=== PATIENT | male | born 1935 | race African-American/Black ===

== ENCOUNTER 2016-12-23 12:39 | Inpatient (IN) | payer OTHER, MEDICAID ==
[~2016-12-23] VITALS: Ht 177.8 cm; Wt 66.4 kg
--- NOTE | 2016-12-23 14:52 | RAD ---
CT of the head without contrast, 12/23/2016: History: Swallowing difficulty and blurred vision Comparison is made to a study from 05/15/2009. There is mild cerebral atrophy. The ventricles are within normal limits in size. There is no shift of the midline structures. There is no evidence of acute intracranial hemorrhage or mass effect. IMPRESSION: No acute intracranial abnormality is detected. PQRS Compliance Statement: One or more of the following individualized dose reduction techniques were utilized for this examination: 1. Automated exposure control 2. Adjustment of the mA and/or kV according to patient size 3. Use of iterative reconstruction technique
--- NOTE | 2016-12-23 14:56 | RAD ---
Chest, 2 views, 12/23/2016: History: Difficulty swallowing Comparison is made to a study from 2009. The heart size is normal. There appears to be a new opacity in the left lower lobe along the posteroinferior aspect of the left hilum. There is attenuation of the upper lobe pulmonary vessels suggesting underlying emphysema. No other pulmonary infiltrate or mass is seen. An old rib fractures present on the lower left. IMPRESSION: New left lower lobe opacity suggesting a neoplasm versus focal pneumonitis. CT scanning is suggested for further evaluation.
[2016-12-23 15:04] LABS: OBC FLU VALID
[2016-12-23] MEDS ORDERED: IV NORMAL SALINE 500ML BAG 500 ML IV ONE (15:30)
--- NOTE | 2016-12-23 15:34 | PHYS DOC ---
Past Medical History Past Medical History: Hypertension Past Surgical History: Other Additional Past Surgical Histo: thyroid, hernia Alcohol Use: None Drug Use: None Adult General Chief Complaint Chief Complaint: FLU SYMPTOM HPI HPI Patient is a 81 year old male who presents with family for evaluation of 1 week of difficulty swallowing followed by general weakness and weight loss. He tries to swallow solids, then the food "gets stuck" and come back up. States he has lost 21 pounds in a week. He has been drinking liquids because he does not have a problem with that. He has slight rhinorrhea. He thinks he may have influenza. He denies chest pain, dyspnea, headache, dizziness, nausea, fever or chills, myalgia, cough, diarrhea, dysuria. Review of Systems Review of Systems Constitutional: Denies fever or chills [] Eyes: Denies change in visual acuity, redness, or eye pain [] HENT: Denies nasal congestion or sore throat [] Respiratory: Denies cough or shortness of breath [] Cardiovascular: No additional information not addressed in HPI [] GI: Denies abdominal pain, nausea, bloody stools or diarrhea [] : Denies dysuria or hematuria [] Musculoskeletal: Denies back pain or joint pain [] Integument: Denies rash or skin lesions [] Neurologic: Denies headache, focal weakness or sensory changes [] Endocrine: Denies polyuria or polydipsia [] Current Medications Current Medications Current Medications Medications (Trade) Dose Ordered Sig/Kelly Start Time Stop Time Status Last Admin Dose Admin Sodium Chloride (Iv Sodium Chloride 0.9% 500ml Bag) 500 ml @ 500 mls/hr 1X ONCE 12/23/16 15:30 12/23/16 16:29 12/23/16 15:30 500 MLS/HR Allergies Allergies Allergies Coded Allergies Type Severity Reaction Last Updated Verified No Known Drug Allergies 05/01/16 No Physical Exam Physical Exam Constitutional: Well developed, well nourished, no acute distress, non-toxic appearance. [] HENT: Normocephalic, atraumatic, bilateral external ears normal, oropharynx moist, no oral exudates, nose normal. [] Eyes: PERRLA, EOMI. [] Neck: Normal range of motion, supple. [] Cardiovascular:Heart rate regular rhythm [] Lungs & Thorax: Bilateral breath sounds clear to auscultation [] Abdomen: Bowel sounds normal, soft, no tenderness, no pulsatile masses. [] Skin: Warm, dry, no erythema, no rash. [] Back: No tenderness, no CVA tenderness. [] Extremities: ROM intact, no edema. [] Neurologic: Alert and oriented X 3, normal motor function, normal sensory function, no focal deficits noted, cranial nerves II through XII intact. [] Psychologic: Affect normal, judgement normal, mood normal. [] Current Patient Data Vital Signs Vital Signs Date Time Temp Pulse Resp B/P Pulse Ox O2 Delivery O2 Flow Rate FiO2 12/23/16 14:06 98.0 82 16 88/66 97 Room Air 98.0 Lab Values Laboratory Tests Test 12/23/16 14:00 12/23/16 15:12 Influenza Type A Antigen Negative (NEGATIVE) Influenza Type B Antigen Negative (NEGATIVE) White Blood Count 4.6x10^3/uL (4.0-11.0) Red Blood Count 5.17x10^6/uL (4.30-5.70) Hemoglobin 14.2g/dL (13.0-17.5) Hematocrit 44.5% (39.0-53.0) Mean Corpuscular Volume 86fL (79-100) Mean Corpuscular Hemoglobin 27pg (25-35) Mean Corpuscular Hemoglobin Concent 32g/dL (31-37) Red Cell Distribution Width 14.0% (11.5-14.5) Platelet Count 156x10^3/uL (140-400) Neutrophils (%) (Auto) 65% (31-73) Lymphocytes (%) (Auto) 27% (24-48) Monocytes (%) (Auto) 6% (0-9) Eosinophils (%) (Auto) 2% (0-3) Basophils (%) (Auto) 1% (0-3) Neutrophils # (Auto) 3.0x10^3uL (1.8-7.7) Lymphocytes # (Auto) 1.3x10^3/uL (1.0-4.8) Monocytes # (Auto) 0.3x10^3/uL (0.0-1.1) Eosinophils # (Auto) 0.1x10^3/uL (0.0-0.7) Basophils # (Auto) 0.0x10^3/uL (0.0-0.2) Laboratory Tests 12/23/16 15:12 EKG EKG EKG as interpreted by me as sinus tachycardia, rate 100s, no ST elevation or depression, slightly peaked t waves, no ectopy Radiology/Procedures Radiology/Procedures Head CT without contrast IMPRESSION: No acute intracranial abnormality is detected. DICTATED and SIGNED BY: TAYO MORLEY MD DATE: 12/23/16 1447 Chest x-ray IMPRESSION: New left lower lobe opacity suggesting a neoplasm versus focal pneumonitis. CT scanning is suggested for further evaluation. DICTATED and SIGNED BY: TAYO MORLEY MD DATE: 12/23/16 1450 Course & Med Decision Making Course & Med Decision Making Pertinent Labs and Imaging studies reviewed. (See chart for details) CT head and XR chest as above; XR chest concerning for lung nodule. CBC and flu swab normal. Transition of care to Dr. Barrios pending BMP. Dispo accordingly. -MD Rosa Weeks Disclaimer Dragon Disclaimer This electronic medical record was generated, in whole or in part, using a voice recognition dictation system. Departure Departure Impression: Primary Impression: Dysphagia Referrals: ELLEN FERGUSON MD (PCP) Problem Qualifiers Primary Impression: Dysphagia Dysphagia type: unspecified Qualified Code: R13.10 - Dysphagia, unspecified Kiran MURPHY MD Dec 23, 2016 15:34
[2016-12-23 15:39] LABS: BASO % 1 % (0-3); EOS % 2 % (0-3); HEMATOCRIT 44.5 % (39.0-53.0); HEMOGLOBIN 14.2 g/dL (13.0-17.5); LYMPH # 1.3 x10^3/uL (1.0-4.8); LYMPH % 27 % (24-48); MEAN CORPUSCULAR HEMOGLOBIN 27 pg (25-35); MEAN CORPUSCULAR HGB CONC 32 g/dL (31-37); MEAN CORPUSCULAR VOLUME 86 fL (79-100); MONO % 6 % (0-9); NEUT % 65 % (31-73); PLATELET COUNT 156 x10^3/uL (140-400); RED BLOOD COUNT 5.17 x10^6/uL (4.30-5.70); WHITE BLOOD COUNT 4.6 x10^3/uL (4.0-11.0)
[2016-12-23 16:13] LABS: CALCIUM 10.2 mg/dL (8.5-10.1); CREATININE 2.8 mg/dL (0.7-1.3); GFR 26.6; POTASSIUM 5.2 mmol/L (3.5-5.1)
[2016-12-23] MEDS ORDERED: ONDANSETRON PF 4 MG/2 ML VIAL. IV PRN (17:15)
[2016-12-23] MEDS ORDERED: IV NORMAL SALINE 1000ML BAG 1,000 ML IV SCH (17:15)
[2016-12-23] MEDS ORDERED: ACETAMINOPHEN 325 MG TABLET. PO PRN (17:15)
[2016-12-23] MEDS: IV NORMAL SALINE 1000ML BAG 1,000 ML IV SCH (17:28)
[2016-12-23 20:00] VITALS: BP 122/69
--- NOTE | 2016-12-23 20:43 | PDOC1 ---
History and Physical Date of Admission Date of Admission DATE: 12/23/16 TIME: 20:43 Identification/Chief Complaint Chief Complaint dysphagia Source Source: Chart review, Patient History of Present Illness History of Present Illness Mr. Noel, is a 81 year old male admit for acute difficulty swallowing. He has been unable to eat solid food for a few days. Has been drinking what he feels in gallons of water, and then urinating all day. He reports drinking more than a gallon of milk the other day to try to get calories and stay hydrated. He felt weak and unwell, was concerned about having flu. He reports food "gets stuck" and come back up. States he has lost 21 pounds in a week. 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 "chasing his grandbabies" Social History Smoke: No ALCOHOL: none Drugs: None Current Problem List Problem List Problems Medical Problems: (1) ARF (acute renal failure) Status: Acute (2) Dysphagia Status: Acute (3) Dysphagia Status: Acute (4) Hyperglycemia Status: Acute Problems: Current Medications Current Medications Current Medications Sodium Chloride 500 ml @ 500 mls/hr 1X ONCE IV Last administered on 15:30; Start 12/23/16 at 15:30; Stop 12/23/16 at 16:29; Status DC Sodium Chloride (Iv Sodium Chloride 0.9% 1000ml Bag) 1,000 ml @ 510 mls/hr Q1H58M IV ; Start 12/23/16 at 17:15; Stop 12/23/16 at 21:15 Ondansetron HCl 4 mg 4 mg PRN Q8HRS PRN IV NAUSEA/VOMITING; Start 12/23/16 at 17:15; Stop 12/24/16 at 17:14 Sodium Chloride (Iv Sodium Chloride 0.9% 1000ml Bag) 1,000 ml @ 125 mls/hr Q8H IV Last administered on 12/23/16 17:28; Start 12/23/16 at 17:04; Stop at 17:03 Acetaminophen (Tylenol) 650 mg PRN Q4HRS PRN PO FEVER; Start 12/23/16 at 17:15 ; Stop 12/24/16 at 17:14 Allergies Allergies: Coded Allergies: No Known Drug Allergies (Unverified , 05/01/16) ROS General: No: Appetite, Chills, Fatigue, Malaise, Night Sweats, Other PSYCHOLOGICAL ROS: No: Anxiety, Behavioral Disorder, Concentration difficultie , Decreased libido, Depression, Disorientation, Hallucinations, Hostility, Irritablity, Memory difficulties, Mood Swings, Obsessive thoughts, Other, Physical abuse, Sexual abuse, Sleep disturbances, Suicidal ideation Eyes: No Blurry vision, No Decreased vision, No Double vision, No Dry eyes, No Excessive tearing, No Eye Pain, No Itchy Eyes, No Loss of vision, No Other, No Photophobia, No Scotomata, No Uses contacts, No Uses glasses HEENT: No: Epistaxis, Heacaches, Hearing change, Nasal congestion, Nasal discharge, Oral lesions, Other, Sinus pain, Sneezing, Snoring, Sore Throat, Tinnitus, Vertigo, Visual Changes, Vocal changes Respiratory: No: Cough, Hemoptysis, Orthopnea, Other, Pleuritic Pain, SOB with excertion, Shortness of breath, Sputum Changes, Stridor, Tachypnea, Wheezing Gastrointestinal: Yes Nausea, Yes Other, No Abdominal Pain, No Constipation, No Diarrhea, No Hematochezia, No Melena, No Vomiting Genitourinary: No , No , No , No , No , No , No , No Discharge, No Dysuria, No Flank Pain, No Frequency, No Hematuria, No Incontinence, No Other, No Pain, No Retention, No Urgency Musculoskeletal: Yes Joint Pain, No Gait Disturbance, No Joint Stiffness, No Joint Swelling, No Muscle Pain, No Muscular Weakness, No Other, No Pain In:, No Swelling In: Neurological: No Behavorial Changes, No Bowel/Bladder ControlChng, No Confusion , No Dizziness, No Gait Disturbance, No Headaches, No Impaired Coord/balance, No Memory Loss, No Numbness/Tingling, No Other, No Seizures, No Speech Problems , No Tremors, No Visual Changes, No Weakness Skin: No Acne, No Dry Skin, No Eczema, No Hair Changes, No Lumps, No Mole Changes, No Mottling, No Nail Changes, No Other, No Pruritus, No Rash, No Skin Lesion Changes Physical Exam General: Alert, Oriented X3, Cooperative, No acute distress HEENT: Atraumatic, PERRLA Lungs: Clear to auscultation Heart: RRR, no murmurs Abdomen: Normal bowel sounds, Soft, No tenderness, No hepatosplenomegaly Rectal Exam: not examined Extremities: No clubbing, No cyanosis Skin: No rashes, Other (dry skin, poor turgor, ) Neuro: Normal speech, Strength at 5/5 X4 ext, Sensation intact, Cranial nerves 3-12 NL Psych/Mental Status: Mental status NL, Mood NL Vitals Vitals Vital Signs Date Time Temp Pulse Resp B/P Pulse Ox O2 Delivery O2 Flow Rate FiO2 12/23/16 18:30 96 111/72 95 Room Air 12/23/16 14:06 98.0 16 98.0 Labs Labs Laboratory Tests Test 12/23/16 14:00 12/23/16 15:12 Influenza Type A Antigen Negative (NEGATIVE) Influenza Type B Antigen Negative (NEGATIVE) White Blood Count 4.6x10^3/uL (4.0-11.0) Red Blood Count 5.17x10^6/uL (4.30-5.70) Hemoglobin 14.2g/dL (13.0-17.5) Hematocrit 44.5% (39.0-53.0) Mean Corpuscular Volume 86fL (79-100) Mean Corpuscular Hemoglobin 27pg (25-35) Mean Corpuscular Hemoglobin Concent 32g/dL (31-37) Red Cell Distribution Width 14.0% (11.5-14.5) Platelet Count 156x10^3/uL (140-400) Neutrophils (%) (Auto) 65% (31-73) Lymphocytes (%) (Auto) 27% (24-48) Monocytes (%) (Auto) 6% (0-9) Eosinophils (%) (Auto) 2% (0-3) Basophils (%) (Auto) 1% (0-3) Neutrophils # (Auto) 3.0x10^3uL (1.8-7.7) Lymphocytes # (Auto) 1.3x10^3/uL (1.0-4.8) Monocytes # (Auto) 0.3x10^3/uL (0.0-1.1) Eosinophils # (Auto) 0.1x10^3/uL (0.0-0.7) Basophils # (Auto) 0.0x10^3/uL (0.0-0.2) Sodium Level 133mmol/L (136-145) Potassium Level 5.2mmol/L (3.5-5.1) Chloride Level 95mmol/L (98-107) Carbon Dioxide Level 24mmol/L (21-32) Anion Gap 14 (6-14) Blood Urea Nitrogen 62mg/dL (8-26) Creatinine 2.8mg/dL (0.7-1.3) Estimated GFR (Cockcroft-Gault) 26.6 Glucose Level 628mg/dL (70-99) Calcium Level 10.2mg/dL (8.5-10.1) Laboratory Tests Test 12/23/16 14:00 12/23/16 15:12 Influenza Type A Antigen Negative (NEGATIVE) Influenza Type B Antigen Negative (NEGATIVE) White Blood Count 4.6x10^3/uL (4.0-11.0) Red Blood Count 5.17x10^6/uL (4.30-5.70) Hemoglobin 14.2g/dL (13.0-17.5) Hematocrit 44.5% (39.0-53.0) Mean Corpuscular Volume 86fL (79-100) Mean Corpuscular Hemoglobin 27pg (25-35) Mean Corpuscular Hemoglobin Concent 32g/dL (31-37) Red Cell Distribution Width 14.0% (11.5-14.5) Platelet Count 156x10^3/uL (140-400) Neutrophils (%) (Auto) 65% (31-73) Lymphocytes (%) (Auto) 27% (24-48) Monocytes (%) (Auto) 6% (0-9) Eosinophils (%) (Auto) 2% (0-3) Basophils (%) (Auto) 1% (0-3) Neutrophils # (Auto) 3.0x10^3uL (1.8-7.7) Lymphocytes # (Auto) 1.3x10^3/uL (1.0-4.8) Monocytes # (Auto) 0.3x10^3/uL (0.0-1.1) Eosinophils # (Auto) 0.1x10^3/uL (0.0-0.7) Basophils # (Auto) 0.0x10^3/uL (0.0-0.2) Sodium Level 133mmol/L (136-145) Potassium Level 5.2mmol/L (3.5-5.1) Chloride Level 95mmol/L (98-107) Carbon Dioxide Level 24mmol/L (21-32) Anion Gap 14 (6-14) Blood Urea Nitrogen 62mg/dL (8-26) Creatinine 2.8mg/dL (0.7-1.3) Estimated GFR (Cockcroft-Gault) 26.6 Glucose Level 628mg/dL (70-99) Calcium Level 10.2mg/dL (8.5-10.1) VTE Prophylaxis Ordered VTE Prophylaxis Devices: No VTE Pharmacological Prophylaxi: Yes Assessment/Plan Assessment/Plan acute renal failure, vasomotor nephropathy Hyperosmolar, not ketotic DM2, alarming hyperglycemia, give IV reg X1, recheck labs, K+ may drop markedly dysphagia, globus sensation "food getting stuck" he feels improved already and would like to try to eat more check more labs in AM, suspect mod malnutrition, weight loss, BMI 21, 20 lbs weight loss MATHEW RODRIGUES MD Dec 23, 2016 20:43
[2016-12-23] MEDS ORDERED: DEXTROSE 50% 25 GM / 50ML DISP.SYRIN. IV PRN (21:45)
[2016-12-23] MEDS ORDERED: INSULIN DETEMIR 300 UNITS/3 ML INSULN.PEN. SQ SCH (22:00)
[2016-12-23] MEDS ORDERED: INSULIN ASPART 300 UNITS/3 ML INSULN.PEN SQ ONE (22:30)
[2016-12-23] MEDS: ENOXAPARIN 30 MG/0.3 ML DISP.SYRIN. SQ SCH (22:38)
[2016-12-23 22:43] LABS: CALCIUM 9.5 mg/dL (8.5-10.1); CREATININE 2.5 mg/dL (0.7-1.3); GFR 30.3; POTASSIUM 5.3 mmol/L (3.5-5.1)
[2016-12-23 23:00] VITALS: BP 85/56
--- NOTE | 2016-12-23 23:57 | ACF ---
Admission Forms Criteria GASTROENTEROLOGY GRG Clinical Indications for Admission to Inpatient Care (Place 'X' for any and all applicable criteria): Hospital admission is needed for appropriate care of the patient because of ANY ONE of the following: [ ]I. Hemoperitoneum(7) [ ]II. Ascites requiring acute treatment indicated by ANY ONE of the following( 8)(9): [ ]a) Hemodynamic instability remaining after emergency or observation level care (as appropriate) [ ]b) Peritoneal signs present (eg, abdominal rigidity, rebound tenderness, absent bowel sounds) [ ]c) Tachypnea, Hypoxemia, or other respiratory symptoms remain after emergency or observation level care (as appropriate) [ ]d) Suspected infected ascites as indicated by ANY ONE of the following: [ ]i) Temperature greater than 100 degrees F (37.8 degrees C) [ ]ii) Abdominal pain or tenderness not relieved by paracentesis [ ]iii) Systemic signs of infection (eg, elevated WBC count, fever) [ ]iv) Ascitic fluid analysis consistent with infection ( eg, elevated WBC count): [ ]v) Vital sign abnormality [ ]III. Suspected acute intra-abdominal process indicated by ANY ONE of the following(1)(2)(3)(4)(5): [ ]a) Hemodynamic instability [ ]b) Peritoneal signs present (eg, abdominal rigidity, rebound tenderness, absent bowel sounds) [ ]c) Bowel obstruction suspected (eg, severe vomiting, abdominal distension) [ ]d) Suspected mesenteric ischemia or ischemic colitis(6) [ ]e) Other signs or symptoms of acute abdominal disease (eg, severe pain, free air): [ ]IV. Severe liver disease indicated by ANY ONE of the following(8)(9)(10)(11)( 12)(13)(14): [ ]a) Acute hepatitis (eg, transaminase level greater than 1000 IU/L) [ ]b) Acute elevation of prothrombin time to more than 50% above normal or INR greater than 1.5 [ ]c) Bilirubin greater than 20 mg/dL (342 micromoles/L) (15) [ ]d) New-onset or worsening hepatic encephalopathy [ ]e) Acute liver necrosis [ ]f) Vomiting or dehydration that is severe of persistent [ ]g) Hemodynamic instability due to liver disease [ ]h) Acute renal failure [ ]i) Hepatic abscess [ ]j) Dehydration that is severe or persistent [ ]k) Hepatic hydrothorax(21) [ ]l) Other indications of severe liver disease (eg, persistent fever , ingestion of hepatotoxin) [ ]V. Severe diarrhea indicated by ANY ONE of the following(17)(18)(19)(20)(21)( 22)(23): [ ]a) High fever or other high-risk infection situation [ ]b) Intractable bloody diarrhea (eg, more than 6 bloody stools per day) [ ]c) Suspected Clostridium difficile-associated diarrhea(24) [ ]d) Change in mental status that persists after emergency or observation level care (as appropriate) [ ]e) Severe dehydration (eg, greater than 9% loss of body weight in children) [ ]f) Inability to maintain hydration [ ]g) Peritoneal signs present (eg, abdominal rigidity, rebound tenderness, absent bowel sounds) [ ]h) Abdominal ischemia suspected(6) [ ]i) Hemodynamic instability that persists after emergency or observation level care (as appropriate) [ ]j) Severe electrolyte abnormalities requiring inpatient care [ ]k) Acute renal failure [ ]. Suspected toxic megacolon(5)(6) [X]VII.Severe dysphagia indicated by ANY ONE of the following(25)(26): [ ]a) Suspected esophageal perforation or fistula(27) [ ]b) Suspected cause that requires inpatient care (eg, caustic ingestion, severe esophagitis) (28) [ ]c) Severe dehydration (eg, greater than 9% loss of body weight in children) [ ]d) Inability to manage secretions or maintain hydration [ ]e) Hemodynamic instability that persists after emergency or observation level care (as appropriate) [ ]f) Severe electrolyte abnormalities requiring inpatient care [X]g) Acute renal failure [ ]VIII.Vomiting and ANY ONE of the following (29)(30)(31)(32): [ ]a) High fever or other high-risk infection situation [ ]b) Change in mental status that persists after emergency or observation level care (as appropriate) [ ]c) Severe dehydration (e.g., greater than 9% loss of body weight in children) [ ]d) Peritoneal signs present (e.g., abdominal rigidity, rebound tenderness, absent bowel sounds) [ ]e) Hemodynamic instability that persists after emergency or observation level care (as appropriate) [ ]f) Severe electrolyte abnormalities requiring inpatient care [ ]g) Acute renal failure [ ]h) Bowel obstruction suspected (e.g., severe vomiting, abdominal distension) [ ]i) Vomiting that is severe or persistent after medical treatment [ ]IX. Significant dehydration indicated by ANY ONE of the following(23)(24)(25) [ ]a) Clinical findings of severe dehydration indicated by ANY ONE of the following: [ ]i) Acute loss of weight from baseline (5% of body weight in adults, 9% in pediatric patients) [ ]ii) Hemodynamic instability [ ]iii) Acute renal failure [ ]iv) Serum sodium greater than 150 mEq/L (mmol/L) [ ]b) Dehydration that is persistent indicated by ALL of the following: [ ]i) Oral rehydration therapy not tolerated or insufficient to adequately correct dehydration [ ]ii) Appropriate intravenous treatment (eg, fluids) does not readily correct dehydration hours of (ie, after 12 to 24 of treatment) [ ]X. Gastroparesis and ANY ONE of the following(37)(38)(39): [ ]a) Dehydration that is severe or persistent [ ]b) Severe electrolyte abnormalities requiring inpatient care [ ]c) Acute renal failure [ ]d) Vomiting that is severe or persistent [ ]XI. Complications of transplanted liver indicated by ANY ONE of the following (40)(41): [ ]a) Acute graft rejection requiring inpatient management (eg, intravenous immunosuppression)(42) [ ]b) Failure of transplanted liver as indicated by ANY ONE of the following: [ ]i) Acute hepatitis (eg, transaminase level greater than 1000 International Units per liter (IU/L)) [ ]ii) Acute elevation of prothrombin time to more than 50% above baseline or INR greater than 1.5 [ ]iii) Bilirubin greater than 20 mg/dL (342 micromoles/L) [ ]iv) New-onset or worsening hepatic encephalopathy [ ]v) Acute elevation of serum ammonia level (eg, greater than 210 mcg/dL (150 micromoles/L)) [ ]vi) Acute liver necrosis [ ]c) Infection requiring inpatient management (eg, Hemodynamic instability, need for intravenous antimicrobial treatment)(43)(44)(45)(46)(47)(48)(49)(50) [ ]d) Other complication of transplanted liver (eg, thrombosis, autoimmune hepatitis, variceal bleeding) requiring inpatient management(51)(52) [ ]XII Complications of transplanted pancreas indicated by ANY ONE of the following(53): [ ]a) Acute graft rejection requiring inpatient management (eg, intravenous immunosuppression)(42)(54) [ ]b) Failure of transplanted pancreas as indicated by ANY ONE of the following: [ ]i) Serum amylase greater than 3 times the upper limit of normal or baseline [ ]ii) Serum lipase greater than 3 times the upper limit of normal or baseline [ ]iii) Imaging findings consistent with pancreatic inflammation or necrosis [ ]c) Infection requiring inpatient management (eg, Hemodynamic instability, need for intravenous antimicrobial treatment)(43)(44)(45)(46)(47)(48)(49)(50) [ ]d) Other complication of transplanted liver (eg, thrombosis, autoimmune hepatitis, variceal bleeding) requiring inpatient management(51)(52) [ ]X. Gastroenterology condition and ALL of the following: [ ]a) Symptom or finding for which emergency and observation care have failed or are not considered appropriate (Also use General Criteria: Observation Care as appropriate) [ ]b) Presence of ANY ONE of the following: [ ]i) A General Admission Criteria [ ]ii) A Pediatric General Admission Criteria. The original [facility] [employer] content created by [facility] has been revised. The portions of the content which have been revised are identified through the use of italic text or in bold,and [facility] has neither reviewed nor approved the modified material. All other unmodified content is copyright [facility]. Please see references footnoted in the original [facility] edition 2016 Admission Criteria Met?: Yes LILIANA CALLOWAY Dec 23, 2016 23:57
[2016-12-24] LABS: CALCIUM 9.6 mg/dL (8.5-10.1); CREATININE 2.5 mg/dL (0.7-1.3); GFR 30.3
[2016-12-24] MEDS ORDERED: INSU100I17 SQ (00:04)
[2016-12-24] MEDS ORDERED: INSULIN ASPART 300 UNITS/3 ML INSULN.PEN SQ ONE ×2 (00:30→01:15)
[2016-12-24] MEDS: IV NORMAL SALINE 1000ML BAG 1,000 ML IV SCH ×2 (02:30→12:26)
[2016-12-24] MEDS ORDERED: PNEUMOCOCCAL VAX SCREEN BY RX. MC ONE (02:45)
[2016-12-24] MEDS ORDERED: INFLUENZA VAX SCREEN BY RX. MC ONE (02:45)
[2016-12-24 03:00] VITALS: BP_SYST 112
[2016-12-24 05:24] LABS: BASO % 0 % (0-3); EOS % 3 % (0-3); HEMATOCRIT 40.6 % (39.0-53.0); HEMOGLOBIN 13.2 g/dL (13.0-17.5); LYMPH # 1.8 x10^3/uL (1.0-4.8); LYMPH % 37 % (24-48); MEAN CORPUSCULAR HEMOGLOBIN 27 pg (25-35); MEAN CORPUSCULAR HGB CONC 33 g/dL (31-37); MEAN CORPUSCULAR VOLUME 84 fL (79-100); MONO % 8 % (0-9); NEUT % 52 % (31-73); PLATELET COUNT 145 x10^3/uL (140-400); RED BLOOD COUNT 4.83 x10^6/uL (4.30-5.70); RED CELL DISTRIBUTION WIDTH 13.9 % (11.5-14.5); WHITE BLOOD COUNT 4.9 x10^3/uL (4.0-11.0)
[2016-12-24 06:02] LABS: MAGNESIUM 2.1 mg/dL (1.8-2.4); PHOSPHORUS 2.7 mg/dL (2.6-4.7)
[2016-12-24 06:13] LABS: ALBUMIN 3.1 g/dL (3.4-5.0); ALBUMIN/GLOBULIN RATIO 0.8 (1.0-1.7); CALCIUM 9.9 mg/dL (8.5-10.1); CREATININE 2.1 mg/dL (0.7-1.3); POTASSIUM 3.7 mmol/L (3.5-5.1); TOTAL BILIRUBIN 0.3 mg/dL (0.2-1.0)
[2016-12-24 07:00] VITALS: BP 85/50
[2016-12-24] MEDS ORDERED: CYCL10TA2 (07:19)
[2016-12-24] MEDS ORDERED: HYDR-2163 (07:19)
[2016-12-24] MEDS ORDERED: OMEP20CA9 (07:19)
[2016-12-24] MEDS ORDERED: CELE-20 (07:19)
[2016-12-24] MEDS ORDERED: LOSA1TAB16 (07:19)
--- NOTE | 2016-12-24 07:25 | EKG ---
[facility] [address] [place] [address] Test Date: 2016-12-23 Test Time: 13:57:40 Pat Name: JOHNATHON WHEELER Department: Room: 524 1 Gender: M [place]: : [id number] Requested By: Kiran MURPHY Order Number: [id number] Reading MD: Collette Alan Measurements Intervals Edwards Rate: 209 P: IA: QRS: 56 QRSD: 130 T: -165 QT: 268 QTc: 506 Interpretive Statements SINUS RHYTHM, LOW VOLTAGE OTHERWISE NORMAL EKG RI6.01 No previous ECG available for comparison Electronically Signed On 12-28-2016 19:27:40 [employer] DES[employer] by Collette Alan
[2016-12-24] MEDS ORDERED: INSULIN ASPART 300 UNITS/3 ML INSULN.PEN SQ SCH ×2 (07:30)
[2016-12-24] MEDS: INSULIN ASPART 300 UNITS/3 ML INSULN.PEN SQ SCH ×3 (08:00→17:58)
[2016-12-24] MEDS ORDERED: FLU VACC QUAD 2016-17 (36MOS+)/PF 0.5 ML SYRINGE. VAX IM ONE (09:00)
[2016-12-24] MEDS ORDERED: PNEUMOC CONJ VACC 23-VALENT 0.5 ML VIAL. VAX IM ONE (09:00)
[2016-12-24] MEDS ORDERED: CYCLOBENZAPRINE 10 MG TABLET. PO PRN (09:45)
[2016-12-24] MEDS ORDERED: CELECOXIB 200 MG CAPSULE PO PRN (09:45)
[2016-12-24] MEDS: POTASSIUM CHLORIDE 20 MEQ TABLET.ER. PO SCH (10:03)
--- NOTE | 2016-12-24 10:53 | PDOC2 ---
CONSULT Date of Consult Date of Consult DATE: 12/24/16 TIME: 10:47 Reason for Consult Reason for Consult: BERTO Referring Physician Referring Physician: Dr Cannon Identification/Chief Complaint Chief Complaint sev Gen weakness Problems: Source Source: Patient History of Present Illness Reason for Visit: as dictated Past Medical History Cardiovascular: No pertinent hx Pulmonary: No pertinent hx GI: No pertinent hx Heme/Onc: No pertinent hx Hepatobiliary: No pertinent hx Endocrine: No pertinent hx Dermatology: No pertinent hx Social History No ALCOHOL: none Drugs: None Current Problem List Problem List Problems Medical Problems: (1) ARF (acute renal failure) Status: Acute (2) Dysphagia Status: Acute (3) Dysphagia Status: Acute (4) Hyperglycemia Status: Acute Current Medications Current Medications Current Medications Sodium Chloride 500 ml @ 500 mls/hr 1X ONCE IV Last administered on 15:30; Start 12/23/16 at 15:30; Stop 12/23/16 at 16:29; Status DC Sodium Chloride (Iv Sodium Chloride 0.9% 1000ml Bag) 1,000 ml @ 510 mls/hr Q1H58M IV ; Start 12/23/16 at 17:15; Stop 12/23/16 at 21:15; Status DC Ondansetron HCl 4 mg 4 mg PRN Q8HRS PRN IV NAUSEA/VOMITING; Start 12/23/16 at 17:15; Stop 12/24/16 at 17:14 Sodium Chloride (Iv Sodium Chloride 0.9% 1000ml Bag) 1,000 ml @ 125 mls/hr Q8H IV Last administered on 12/24/16 02:30; Start 12/23/16 at 17:04; Stop at 17:03 Acetaminophen (Tylenol) 650 mg PRN Q4HRS PRN PO FEVER; Start 12/23/16 at 17:15 ; Stop 12/24/16 at 17:14 Insulin Aspart (Novolog) 0-9 UNITS TIDWMEALS SQ ; Start 12/24/16 at 08:00 Dextrose 12.5 gm PRN Q15MIN PRN IV SEE COMMENTS; Start 12/23/16 at 21:45 Insulin Aspart (Novolog) 5 units TIDAC SQ ; Start 12/24/16 at 07:30; Stop at 07:30; Status DC Insulin Detemir (Levemir) 10 units QHS SQ Last administered on 12/23/16 22:37 ; Start 12/23/16 at 22:00; Stop 12/24/16 at 00:57; Status DC Insulin Aspart (Novolog) 10 units 1X ONCE SQ Last administered on 12/23/16 22 :36; Start 12/23/16 at 22:30; Stop 12/23/16 at 22:31; Status DC Potassium Chloride (Klor-Con) 20 meq [id number] PO Last administered on 10:03; Start 12/24/16 at 08:00 Enoxaparin Sodium (Lovenox Per Pharmacy Prophylaxis Dosing) 1 each PRN DAILY PRN MC SEE COMMENTS; Start 12/23/16 at 22:00 Enoxaparin Sodium (Lovenox 30mg Syringe) 30 mg QHS SQ Last administered on 12/23 22:38; Start 12/23/16 at 23:00 Insulin Aspart (Novolog) 15 units 1X ONCE SQ Last administered on 12/24/16 00 :11; Start 12/24/16 at 00:30; Stop 12/24/16 at 00:31; Status DC Insulin Aspart (Novolog) 15 units TIDAC SQ ; Start 12/24/16 at 07:30; Stop 12/24 at 09:36; Status DC Insulin Detemir (Levemir) 25 units QHS SQ ; Start 12/24/16 at 21:00; Stop at 21:00; Status DC Insulin Aspart (Novolog) 17 units 1X ONCE SQ Last administered on 12/24/16 01 :28; Start 12/24/16 at 01:15; Stop 12/24/16 at 01:16; Status DC Info (Do NOT chart on this placeholder) 0.5 each 1X ONCE MC ; Start 12/24/16 at 02:45; Stop 12/24/16 at 02:46; Status UNV Pneumococcal Polyvalent Vaccine (Do NOT chart on this placeholder) 0.5 each 1X ONCE MC ; Start 12/24/16 at 02:45; Stop 12/24/16 at 02:46; Status UNV Influenza Virus Vaccine Quadrival (Fluarix Quad [id number] Syringe) 0.5 ml ONCE ONCE VAX IM Last administered on 12/24/16 09:32; Start 12/24/16 at 09:00; Stop 12/24/16 at 09:04; Status DC Pneumococcal Polyvalent Vaccine (Pneumovax 23) 0.5 ml ONCE ONCE VAX IM Last administered on 12/24/16 09:31; Start 12/24/16 at 09:00; Stop 12/24/16 at 09:04 ; Status DC Celecoxib (Celebrex) 200 mg PRN BID PRN PO PAIN; Start 12/24/16 at 09:45 Cyclobenzaprine HCl (Flexeril) 10 mg PRN TID PRN PO SPASMS; Start 12/24/16 at 09:45 Acetaminophen/ Hydrocodone Bitart (Lortab 5/325) 1 tab PRN Q4HRS PRN PO MODERATE PAIN; Start 12/24/16 at 09:45 Losartan Potassium (Cozaar) 50 mg DAILY PO ; Start 12/25/16 at 09:00; Stop 12/25 at 09:00; Status DC Hydrochlorothiazide (Microzide) 12.5 mg DAILY PO ; Start 12/25/16 at 09:00; Stop 12/25/16 at 09:00; Status DC Active Scripts Active Reported Cyclobenzaprine Hcl 10 Mg Tablet Omeprazole 20 Mg Capsule. Celecoxib 200 Mg Capsule Hydrocodone-Apap 5-300 (Hydrocodone Bit/Acetaminophen) 1 Each Tablet Losartan-Hctz 50-12.5 Mg Tab (Losartan/Hydrochlorothiazide) 1 Each Tablet Novolog Flexpen (Insulin Aspart) 100 Unit/1 Ml Insuln.pen 15 Unit SQ 1X Allergies Allergies: Coded Allergies: No Known Drug Allergies (Unverified , 05/01/16) ROS Review of System GEN: no Fevers no Chills + Gen Weakness ++ Fatigue EYES: + Visual Complaints with Blurry vision - now improvign ENT: no EN Drainage no Hearing deficiets CVS: no Orthopnea no CP RESP: no SOB no KING GI: + Nausea + Vomiting : Dysuria no no Urgency+ Freq HEME: easy bruising no Palp Ly Nodes NEURO no Focal Weakness no Sz PSYCH: no Suicidal Ideation no Depression SKIN: no Rashes ENDO: + Polyuria or Polydipsia no Hot/Cold Intolerance MU SK: occ Arthraigia min Myalgia Physical Exam Physical Exam General Appearance: Awake Alert Oriented x 3 In no Distress Eyes: VIsion Unchanged Conjunctiva Normal EN: No EN Drainage Mucous Memb. moist Neck: no JVD no JVP Supple no Thyromegaly CVS: S1 S2 no Murmur No Gallop No Rub no Edema Resp: no Rales no Rhonchi no Acc. Muscle use GI: BAS +ve NO Bruit Non Tender Non Distended : no CVA tenderness; no Suprapubic Tenderness SKIN: no Rashes Breast Exam deferred Mu.Sk: Adequate ROM min Muscle Atrophy Heme: Unable to palpate Obvious LAD no palp Splenomegaly NEURO: Good Strength and Tone Cranial Nerves II - XII grossly intact Psych: not Depressed no Active hallucination Vital Signs Vital Signs Date Time Temp Pulse Resp B/P Pulse Ox O2 Delivery O2 Flow Rate FiO2 12/24/16 07:00 97.8 95 18 85/50 94 Room Air 97.8 Assessment & Plan BERTO - Presumed VMN due to dehydration from ^ed FSBS. Current FLuid and E- lyte status does not necessitate emergent need for Dialysis. Will re-evaluate for Dialysis in am Hypotension - suspect due to dehydration hyponatremia - Pseudohyponatremia due to ^ FSBS; Doubt that the pulm ABN seen on CXR is a reason but cannot be ruled out ^K - due to ^ed FSBS / HONK state and nOw well corrected Dehydration - suspect due to Glycosuria - better wtih IVF already Discussed Plan of Care and prognosis etc. at length with family. Labs Labs Laboratory Tests Test 12/23/16 14:00 12/23/16 15:12 12/23/16 22:14 12/23/16 23:35 Influenza Type A Antigen Negative (NEGATIVE) Influenza Type B Antigen Negative (NEGATIVE) White Blood Count 4.6x10^3/uL (4.0-11.0) Red Blood Count 5.17x10^6/uL (4.30-5.70) Hemoglobin 14.2g/dL (13.0-17.5) Hematocrit 44.5% (39.0-53.0) Mean Corpuscular Volume 86fL (79-100) Mean Corpuscular Hemoglobin 27pg (25-35) Mean Corpuscular Hemoglobin Concent 32g/dL (31-37) Red Cell Distribution Width 14.0% (11.5-14.5) Platelet Count 156x10^3/uL (140-400) Neutrophils (%) (Auto) 65% (31-73) Lymphocytes (%) (Auto) 27% (24-48) Monocytes (%) (Auto) 6% (0-9) Eosinophils (%) (Auto) 2% (0-3) Basophils (%) (Auto) 1% (0-3) Neutrophils # (Auto) 3.0x10^3uL (1.8-7.7) Lymphocytes # (Auto) 1.3x10^3/uL (1.0-4.8) Monocytes # (Auto) 0.3x10^3/uL (0.0-1.1) Eosinophils # (Auto) 0.1x10^3/uL (0.0-0.7) Basophils # (Auto) 0.0x10^3/uL (0.0-0.2) Sodium Level 133mmol/L (136-145) 133mmol/L (136-145) 135mmol/L (136-145) Potassium Level 5.2mmol/L (3.5-5.1) 5.3mmol/L (3.5-5.1) 5.0mmol/L (3.5-5.1) Chloride Level 95mmol/L (98-107) 98mmol/L (98-107) 100mmol/L (98-107) Carbon Dioxide Level 24mmol/L (21-32) 20mmol/L (21-32) 22mmol/L (21-32) Anion Gap 14 (6-14) 15 (6-14) 13 (6-14) Blood Urea Nitrogen 62mg/dL (8-26) 63mg/dL (8-26) 61mg/dL (8-26) Creatinine 2.8mg/dL (0.7-1.3) 2.5mg/dL (0.7-1.3) 2.5mg/dL (0.7-1.3) Estimated GFR (Cockcroft-Gault) 26.6 30.3 30.3 Glucose Level 628mg/dL (70-99) 775mg/dL (70-99) 666mg/dL (70-99) Calcium Level 10.2mg/dL (8.5-10.1) 9.5mg/dL (8.5-10.1) 9.6mg/dL (8.5-10.1) Test 12/24/16 00:41 12/24/16 04:30 12/24/16 07:57 Glucose (Fingerstick) 507mg/dL (70-99) 78mg/dL (70-99) White Blood Count 4.9x10^3/uL (4.0-11.0) Red Blood Count 4.83x10^6/uL (4.30-5.70) Hemoglobin 13.2g/dL (13.0-17.5) Hematocrit 40.6% (39.0-53.0) Mean Corpuscular Volume 84fL (79-100) Mean Corpuscular Hemoglobin 27pg (25-35) Mean Corpuscular Hemoglobin Concent 33g/dL (31-37) Red Cell Distribution Width 13.9% (11.5-14.5) Platelet Count 145x10^3/uL (140-400) Neutrophils (%) (Auto) 52% (31-73) Lymphocytes (%) (Auto) 37% (24-48) Monocytes (%) (Auto) 8% (0-9) Eosinophils (%) (Auto) 3% (0-3) Basophils (%) (Auto) 0% (0-3) Neutrophils # (Auto) 2.6x10^3uL (1.8-7.7) Lymphocytes # (Auto) 1.8x10^3/uL (1.0-4.8) Monocytes # (Auto) 0.4x10^3/uL (0.0-1.1) Eosinophils # (Auto) 0.2x10^3/uL (0.0-0.7) Basophils # (Auto) 0.0x10^3/uL (0.0-0.2) Sodium Level 144mmol/L (136-145) Potassium Level 3.7mmol/L (3.5-5.1) Chloride Level 107mmol/L (98-107) Carbon Dioxide Level 25mmol/L (21-32) Anion Gap 12 (6-14) Blood Urea Nitrogen 54mg/dL (8-26) Creatinine 2.1mg/dL (0.7-1.3) Estimated GFR (Cockcroft-Gault) 37.0 BUN/Creatinine Ratio 26 (6-20) Glucose Level 98mg/dL (70-99) Calcium Level 9.9mg/dL (8.5-10.1) Ionized Calcium 1.32mmol/L (1.13-1.32) Phosphorus Level 2.7mg/dL (2.6-4.7) Magnesium Level 2.1mg/dL (1.8-2.4) Total Bilirubin 0.3mg/dL (0.2-1.0) Aspartate Amino Transf (AST/SGOT) 37U/L (15-37) Alanine Aminotransferase (ALT/SGPT) 63U/L (16-63) Alkaline Phosphatase 129U/L (46-116) Total Protein 7.0g/dL (6.4-8.2) Albumin 3.1g/dL (3.4-5.0) Albumin/Globulin Ratio 0.8 (1.0-1.7) Laboratory Tests Test 12/23/16 14:00 12/23/16 15:12 12/23/16 22:14 12/23/16 23:35 Influenza Type A Antigen Negative (NEGATIVE) Influenza Type B Antigen Negative (NEGATIVE) White Blood Count 4.6x10^3/uL (4.0-11.0) Red Blood Count 5.17x10^6/uL (4.30-5.70) Hemoglobin 14.2g/dL (13.0-17.5) Hematocrit 44.5% (39.0-53.0) Mean Corpuscular Volume 86fL (79-100) Mean Corpuscular Hemoglobin 27pg (25-35) Mean Corpuscular Hemoglobin Concent 32g/dL (31-37) Red Cell Distribution Width 14.0% (11.5-14.5) Platelet Count 156x10^3/uL (140-400) Neutrophils (%) (Auto) 65% (31-73) Lymphocytes (%) (Auto) 27% (24-48) Monocytes (%) (Auto) 6% (0-9) Eosinophils (%) (Auto) 2% (0-3) Basophils (%) (Auto) 1% (0-3) Neutrophils # (Auto) 3.0x10^3uL (1.8-7.7) Lymphocytes # (Auto) 1.3x10^3/uL (1.0-4.8) Monocytes # (Auto) 0.3x10^3/uL (0.0-1.1) Eosinophils # (Auto) 0.1x10^3/uL (0.0-0.7) Basophils # (Auto) 0.0x10^3/uL (0.0-0.2) Sodium Level 133mmol/L (136-145) 133mmol/L (136-145) 135mmol/L (136-145) Potassium Level 5.2mmol/L (3.5-5.1) 5.3mmol/L (3.5-5.1) 5.0mmol/L (3.5-5.1) Chloride Level 95mmol/L (98-107) 98mmol/L (98-107) 100mmol/L (98-107) Carbon Dioxide Level 24mmol/L (21-32) 20mmol/L (21-32) 22mmol/L (21-32) Anion Gap 14 (6-14) 15 (6-14) 13 (6-14) Blood Urea Nitrogen 62mg/dL (8-26) 63mg/dL (8-26) 61mg/dL (8-26) Creatinine 2.8mg/dL (0.7-1.3) 2.5mg/dL (0.7-1.3) 2.5mg/dL (0.7-1.3) Estimated GFR (Cockcroft-Gault) 26.6 30.3 30.3 Glucose Level 628mg/dL (70-99) 775mg/dL (70-99) 666mg/dL (70-99) Calcium Level 10.2mg/dL (8.5-10.1) 9.5mg/dL (8.5-10.1) 9.6mg/dL (8.5-10.1) Test 12/24/16 00:41 12/24/16 04:30 12/24/16 07:57 Glucose (Fingerstick) 507mg/dL (70-99) 78mg/dL (70-99) White Blood Count 4.9x10^3/uL (4.0-11.0) Red Blood Count 4.83x10^6/uL (4.30-5.70) Hemoglobin 13.2g/dL (13.0-17.5) Hematocrit 40.6% (39.0-53.0) Mean Corpuscular Volume 84fL (79-100) Mean Corpuscular Hemoglobin 27pg (25-35) Mean Corpuscular Hemoglobin Concent 33g/dL (31-37) Red Cell Distribution Width 13.9% (11.5-14.5) Platelet Count 145x10^3/uL (140-400) Neutrophils (%) (Auto) 52% (31-73) Lymphocytes (%) (Auto) 37% (24-48) Monocytes (%) (Auto) 8% (0-9) Eosinophils (%) (Auto) 3% (0-3) Basophils (%) (Auto) 0% (0-3) Neutrophils # (Auto) 2.6x10^3uL (1.8-7.7) Lymphocytes # (Auto) 1.8x10^3/uL (1.0-4.8) Monocytes # (Auto) 0.4x10^3/uL (0.0-1.1) Eosinophils # (Auto) 0.2x10^3/uL (0.0-0.7) Basophils # (Auto) 0.0x10^3/uL (0.0-0.2) Sodium Level 144mmol/L (136-145) Potassium Level 3.7mmol/L (3.5-5.1) Chloride Level 107mmol/L (98-107) Carbon Dioxide Level 25mmol/L (21-32) Anion Gap 12 (6-14) Blood Urea Nitrogen 54mg/dL (8-26) Creatinine 2.1mg/dL (0.7-1.3) Estimated GFR (Cockcroft-Gault) 37.0 BUN/Creatinine Ratio 26 (6-20) Glucose Level 98mg/dL (70-99) Calcium Level 9.9mg/dL (8.5-10.1) Ionized Calcium 1.32mmol/L (1.13-1.32) Phosphorus Level 2.7mg/dL (2.6-4.7) Magnesium Level 2.1mg/dL (1.8-2.4) Total Bilirubin 0.3mg/dL (0.2-1.0) Aspartate Amino Transf (AST/SGOT) 37U/L (15-37) Alanine Aminotransferase (ALT/SGPT) 63U/L (16-63) Alkaline Phosphatase 129U/L (46-116) Total Protein 7.0g/dL (6.4-8.2) Albumin 3.1g/dL (3.4-5.0) Albumin/Globulin Ratio 0.8 (1.0-1.7) Images Images IMPRESSION: New left lower lobe opacity suggesting a neoplasm versus focal pneumonitis. CT scanning is suggested for further evaluation. ROBIN AUGUSTINE MD Dec 24, 2016 10:52
[2016-12-24 11:00] VITALS: BP 133/77
[2016-12-24] MEDS ORDERED: MAGNESIUM SULFATE 2GM 50 ML IV PRN (11:00)
[2016-12-24 11:14] LABS: URIC ACID 10.2 mg/dL (3.5-7.2)
--- NOTE | 2016-12-24 12:09 | PDOC ---
PROGRESS NOTES Chief Complaint Chief Complaint HONK DM new dx acute renal failure, vasomotor nephropathy Dysphagia, globus sensation, POA, resolved History of Present Illness History of Present Illness BS 70s in AM, got levemir 25 last night Hgba1c pending CXR shows new lung nodule, pt WAS a heavy smoker, quit 25 yrs ago NO more dysphagia, ready for solids PLAn: Advance to DM diet DM education dc levemir and novolog scheduled - BS on low side now and he is INSULIN naive HE can start with some sulfonylureas, no metformin given BERTO CT scan to further delineate new lung nodule Dw pt and RN Keep SSI Vitals Vitals Vital Signs Date Time Temp Pulse Resp B/P Pulse Ox O2 Delivery O2 Flow Rate FiO2 12/24/16 07:00 97.8 95 18 85/50 94 Room Air 97.8 Physical Exam General: Alert, Oriented X3, Cooperative, No acute distress Abdomen: Normal bowel sounds, Soft, No tenderness, No hepatosplenomegaly Extremities: No clubbing, No cyanosis Skin: No rashes, Other (dry skin, poor turgor, ) Labs LABS Laboratory Tests Test 12/23/16 14:00 12/23/16 15:12 12/23/16 22:14 12/23/16 23:35 Influenza Type A Antigen Negative (NEGATIVE) Influenza Type B Antigen Negative (NEGATIVE) White Blood Count 4.6x10^3/uL (4.0-11.0) Red Blood Count 5.17x10^6/uL (4.30-5.70) Hemoglobin 14.2g/dL (13.0-17.5) Hematocrit 44.5% (39.0-53.0) Mean Corpuscular Volume 86fL (79-100) Mean Corpuscular Hemoglobin 27pg (25-35) Mean Corpuscular Hemoglobin Concent 32g/dL (31-37) Red Cell Distribution Width 14.0% (11.5-14.5) Platelet Count 156x10^3/uL (140-400) Neutrophils (%) (Auto) 65% (31-73) Lymphocytes (%) (Auto) 27% (24-48) Monocytes (%) (Auto) 6% (0-9) Eosinophils (%) (Auto) 2% (0-3) Basophils (%) (Auto) 1% (0-3) Neutrophils # (Auto) 3.0x10^3uL (1.8-7.7) Lymphocytes # (Auto) 1.3x10^3/uL (1.0-4.8) Monocytes # (Auto) 0.3x10^3/uL (0.0-1.1) Eosinophils # (Auto) 0.1x10^3/uL (0.0-0.7) Basophils # (Auto) 0.0x10^3/uL (0.0-0.2) Sodium Level 133mmol/L (136-145) 133mmol/L (136-145) 135mmol/L (136-145) Potassium Level 5.2mmol/L (3.5-5.1) 5.3mmol/L (3.5-5.1) 5.0mmol/L (3.5-5.1) Chloride Level 95mmol/L (98-107) 98mmol/L (98-107) 100mmol/L (98-107) Carbon Dioxide Level 24mmol/L (21-32) 20mmol/L (21-32) 22mmol/L (21-32) Anion Gap 14 (6-14) 15 (6-14) 13 (6-14) Blood Urea Nitrogen 62mg/dL (8-26) 63mg/dL (8-26) 61mg/dL (8-26) Creatinine 2.8mg/dL (0.7-1.3) 2.5mg/dL (0.7-1.3) 2.5mg/dL (0.7-1.3) Estimated GFR (Cockcroft-Gault) 26.6 30.3 30.3 Glucose Level 628mg/dL (70-99) 775mg/dL (70-99) 666mg/dL (70-99) Calcium Level 10.2mg/dL (8.5-10.1) 9.5mg/dL (8.5-10.1) 9.6mg/dL (8.5-10.1) Test 12/24/16 00:41 12/24/16 04:30 12/24/16 07:57 Glucose (Fingerstick) 507mg/dL (70-99) 78mg/dL (70-99) White Blood Count 4.9x10^3/uL (4.0-11.0) Red Blood Count 4.83x10^6/uL (4.30-5.70) Hemoglobin 13.2g/dL (13.0-17.5) Hematocrit 40.6% (39.0-53.0) Mean Corpuscular Volume 84fL (79-100) Mean Corpuscular Hemoglobin 27pg (25-35) Mean Corpuscular Hemoglobin Concent 33g/dL (31-37) Red Cell Distribution Width 13.9% (11.5-14.5) Platelet Count 145x10^3/uL (140-400) Neutrophils (%) (Auto) 52% (31-73) Lymphocytes (%) (Auto) 37% (24-48) Monocytes (%) (Auto) 8% (0-9) Eosinophils (%) (Auto) 3% (0-3) Basophils (%) (Auto) 0% (0-3) Neutrophils # (Auto) 2.6x10^3uL (1.8-7.7) Lymphocytes # (Auto) 1.8x10^3/uL (1.0-4.8) Monocytes # (Auto) 0.4x10^3/uL (0.0-1.1) Eosinophils # (Auto) 0.2x10^3/uL (0.0-0.7) Basophils # (Auto) 0.0x10^3/uL (0.0-0.2) Sodium Level 144mmol/L (136-145) Potassium Level 3.7mmol/L (3.5-5.1) Chloride Level 107mmol/L (98-107) Carbon Dioxide Level 25mmol/L (21-32) Anion Gap 12 (6-14) Blood Urea Nitrogen 54mg/dL (8-26) Creatinine 2.1mg/dL (0.7-1.3) Estimated GFR (Cockcroft-Gault) 37.0 BUN/Creatinine Ratio 26 (6-20) Glucose Level 98mg/dL (70-99) Uric Acid 10.2mg/dL (3.5-7.2) Calcium Level 9.9mg/dL (8.5-10.1) Ionized Calcium 1.32mmol/L (1.13-1.32) Phosphorus Level 2.7mg/dL (2.6-4.7) Magnesium Level 2.1mg/dL (1.8-2.4) Total Bilirubin 0.3mg/dL (0.2-1.0) Aspartate Amino Transf (AST/SGOT) 37U/L (15-37) Alanine Aminotransferase (ALT/SGPT) 63U/L (16-63) Alkaline Phosphatase 129U/L (46-116) Creatine Kinase 153U/L (39-308) Total Protein 7.0g/dL (6.4-8.2) Albumin 3.1g/dL (3.4-5.0) Albumin/Globulin Ratio 0.8 (1.0-1.7) Review of Systems Review of Systems polyuria, polydipsia, no weight loss, no CP, dysphagia Assessment and Plan Assessmemt and Plan Problems Medical Problems: (1) ARF (acute renal failure) Status: Acute (2) Dysphagia Status: Acute (3) Dysphagia Status: Acute (4) Hyperglycemia Status: Acute Problems: Comment Review of Relevant I have reviewed the following items alan (where applicable) has been applied. Labs Laboratory Tests Test 12/23/16 14:00 12/23/16 15:12 12/23/16 22:14 12/23/16 23:35 Influenza Type A Antigen Negative (NEGATIVE) Influenza Type B Antigen Negative (NEGATIVE) White Blood Count 4.6x10^3/uL (4.0-11.0) Red Blood Count 5.17x10^6/uL (4.30-5.70) Hemoglobin 14.2g/dL (13.0-17.5) Hematocrit 44.5% (39.0-53.0) Mean Corpuscular Volume 86fL (79-100) Mean Corpuscular Hemoglobin 27pg (25-35) Mean Corpuscular Hemoglobin Concent 32g/dL (31-37) Red Cell Distribution Width 14.0% (11.5-14.5) Platelet Count 156x10^3/uL (140-400) Neutrophils (%) (Auto) 65% (31-73) Lymphocytes (%) (Auto) 27% (24-48) Monocytes (%) (Auto) 6% (0-9) Eosinophils (%) (Auto) 2% (0-3) Basophils (%) (Auto) 1% (0-3) Neutrophils # (Auto) 3.0x10^3uL (1.8-7.7) Lymphocytes # (Auto) 1.3x10^3/uL (1.0-4.8) Monocytes # (Auto) 0.3x10^3/uL (0.0-1.1) Eosinophils # (Auto) 0.1x10^3/uL (0.0-0.7) Basophils # (Auto) 0.0x10^3/uL (0.0-0.2) Sodium Level 133mmol/L (136-145) 133mmol/L (136-145) 135mmol/L (136-145) Potassium Level 5.2mmol/L (3.5-5.1) 5.3mmol/L (3.5-5.1) 5.0mmol/L (3.5-5.1) Chloride Level 95mmol/L (98-107) 98mmol/L (98-107) 100mmol/L (98-107) Carbon Dioxide Level 24mmol/L (21-32) 20mmol/L (21-32) 22mmol/L (21-32) Anion Gap 14 (6-14) 15 (6-14) 13 (6-14) Blood Urea Nitrogen 62mg/dL (8-26) 63mg/dL (8-26) 61mg/dL (8-26) Creatinine 2.8mg/dL (0.7-1.3) 2.5mg/dL (0.7-1.3) 2.5mg/dL (0.7-1.3) Estimated GFR (Cockcroft-Gault) 26.6 30.3 30.3 Glucose Level 628mg/dL (70-99) 775mg/dL (70-99) 666mg/dL (70-99) Calcium Level 10.2mg/dL (8.5-10.1) 9.5mg/dL (8.5-10.1) 9.6mg/dL (8.5-10.1) Test 12/24/16 00:41 12/24/16 04:30 12/24/16 07:57 Glucose (Fingerstick) 507mg/dL (70-99) 78mg/dL (70-99) White Blood Count 4.9x10^3/uL (4.0-11.0) Red Blood Count 4.83x10^6/uL (4.30-5.70) Hemoglobin 13.2g/dL (13.0-17.5) Hematocrit 40.6% (39.0-53.0) Mean Corpuscular Volume 84fL (79-100) Mean Corpuscular Hemoglobin 27pg (25-35) Mean Corpuscular Hemoglobin Concent 33g/dL (31-37) Red Cell Distribution Width 13.9% (11.5-14.5) Platelet Count 145x10^3/uL (140-400) Neutrophils (%) (Auto) 52% (31-73) Lymphocytes (%) (Auto) 37% (24-48) Monocytes (%) (Auto) 8% (0-9) Eosinophils (%) (Auto) 3% (0-3) Basophils (%) (Auto) 0% (0-3) Neutrophils # (Auto) 2.6x10^3uL (1.8-7.7) Lymphocytes # (Auto) 1.8x10^3/uL (1.0-4.8) Monocytes # (Auto) 0.4x10^3/uL (0.0-1.1) Eosinophils # (Auto) 0.2x10^3/uL (0.0-0.7) Basophils # (Auto) 0.0x10^3/uL (0.0-0.2) Sodium Level 144mmol/L (136-145) Potassium Level 3.7mmol/L (3.5-5.1) Chloride Level 107mmol/L (98-107) Carbon Dioxide Level 25mmol/L (21-32) Anion Gap 12 (6-14) Blood Urea Nitrogen 54mg/dL (8-26) Creatinine 2.1mg/dL (0.7-1.3) Estimated GFR (Cockcroft-Gault) 37.0 BUN/Creatinine Ratio 26 (6-20) Glucose Level 98mg/dL (70-99) Uric Acid 10.2mg/dL (3.5-7.2) Calcium Level 9.9mg/dL (8.5-10.1) Ionized Calcium 1.32mmol/L (1.13-1.32) Phosphorus Level 2.7mg/dL (2.6-4.7) Magnesium Level 2.1mg/dL (1.8-2.4) Total Bilirubin 0.3mg/dL (0.2-1.0) Aspartate Amino Transf (AST/SGOT) 37U/L (15-37) Alanine Aminotransferase (ALT/SGPT) 63U/L (16-63) Alkaline Phosphatase 129U/L (46-116) Creatine Kinase 153U/L (39-308) Total Protein 7.0g/dL (6.4-8.2) Albumin 3.1g/dL (3.4-5.0) Albumin/Globulin Ratio 0.8 (1.0-1.7) Laboratory Tests Test 12/23/16 14:00 12/23/16 15:12 12/23/16 22:14 12/23/16 23:35 Influenza Type A Antigen Negative (NEGATIVE) Influenza Type B Antigen Negative (NEGATIVE) White Blood Count 4.6x10^3/uL (4.0-11.0) Red Blood Count 5.17x10^6/uL (4.30-5.70) Hemoglobin 14.2g/dL (13.0-17.5) Hematocrit 44.5% (39.0-53.0) Mean Corpuscular Volume 86fL (79-100) Mean Corpuscular Hemoglobin 27pg (25-35) Mean Corpuscular Hemoglobin Concent 32g/dL (31-37) Red Cell Distribution Width 14.0% (11.5-14.5) Platelet Count 156x10^3/uL (140-400) Neutrophils (%) (Auto) 65% (31-73) Lymphocytes (%) (Auto) 27% (24-48) Monocytes (%) (Auto) 6% (0-9) Eosinophils (%) (Auto) 2% (0-3) Basophils (%) (Auto) 1% (0-3) Neutrophils # (Auto) 3.0x10^3uL (1.8-7.7) Lymphocytes # (Auto) 1.3x10^3/uL (1.0-4.8) Monocytes # (Auto) 0.3x10^3/uL (0.0-1.1) Eosinophils # (Auto) 0.1x10^3/uL (0.0-0.7) Basophils # (Auto) 0.0x10^3/uL (0.0-0.2) Sodium Level 133mmol/L (136-145) 133mmol/L (136-145) 135mmol/L (136-145) Potassium Level 5.2mmol/L (3.5-5.1) 5.3mmol/L (3.5-5.1) 5.0mmol/L (3.5-5.1) Chloride Level 95mmol/L (98-107) 98mmol/L (98-107) 100mmol/L (98-107) Carbon Dioxide Level 24mmol/L (21-32) 20mmol/L (21-32) 22mmol/L (21-32) Anion Gap 14 (6-14) 15 (6-14) 13 (6-14) Blood Urea Nitrogen 62mg/dL (8-26) 63mg/dL (8-26) 61mg/dL (8-26) Creatinine 2.8mg/dL (0.7-1.3) 2.5mg/dL (0.7-1.3) 2.5mg/dL (0.7-1.3) Estimated GFR (Cockcroft-Gault) 26.6 30.3 30.3 Glucose Level 628mg/dL (70-99) 775mg/dL (70-99) 666mg/dL (70-99) Calcium Level 10.2mg/dL (8.5-10.1) 9.5mg/dL (8.5-10.1) 9.6mg/dL (8.5-10.1) Test 12/24/16 00:41 12/24/16 04:30 12/24/16 07:57 Glucose (Fingerstick) 507mg/dL (70-99) 78mg/dL (70-99) White Blood Count 4.9x10^3/uL (4.0-11.0) Red Blood Count 4.83x10^6/uL (4.30-5.70) Hemoglobin 13.2g/dL (13.0-17.5) Hematocrit 40.6% (39.0-53.0) Mean Corpuscular Volume 84fL (79-100) Mean Corpuscular Hemoglobin 27pg (25-35) Mean Corpuscular Hemoglobin Concent 33g/dL (31-37) Red Cell Distribution Width 13.9% (11.5-14.5) Platelet Count 145x10^3/uL (140-400) Neutrophils (%) (Auto) 52% (31-73) Lymphocytes (%) (Auto) 37% (24-48) Monocytes (%) (Auto) 8% (0-9) Eosinophils (%) (Auto) 3% (0-3) Basophils (%) (Auto) 0% (0-3) Neutrophils # (Auto) 2.6x10^3uL (1.8-7.7) Lymphocytes # (Auto) 1.8x10^3/uL (1.0-4.8) Monocytes # (Auto) 0.4x10^3/uL (0.0-1.1) Eosinophils # (Auto) 0.2x10^3/uL (0.0-0.7) Basophils # (Auto) 0.0x10^3/uL (0.0-0.2) Sodium Level 144mmol/L (136-145) Potassium Level 3.7mmol/L (3.5-5.1) Chloride Level 107mmol/L (98-107) Carbon Dioxide Level 25mmol/L (21-32) Anion Gap 12 (6-14) Blood Urea Nitrogen 54mg/dL (8-26) Creatinine 2.1mg/dL (0.7-1.3) Estimated GFR (Cockcroft-Gault) 37.0 BUN/Creatinine Ratio 26 (6-20) Glucose Level 98mg/dL (70-99) Uric Acid 10.2mg/dL (3.5-7.2) Calcium Level 9.9mg/dL (8.5-10.1) Ionized Calcium 1.32mmol/L (1.13-1.32) Phosphorus Level 2.7mg/dL (2.6-4.7) Magnesium Level 2.1mg/dL (1.8-2.4) Total Bilirubin 0.3mg/dL (0.2-1.0) Aspartate Amino Transf (AST/SGOT) 37U/L (15-37) Alanine Aminotransferase (ALT/SGPT) 63U/L (16-63) Alkaline Phosphatase 129U/L (46-116) Creatine Kinase 153U/L (39-308) Total Protein 7.0g/dL (6.4-8.2) Albumin 3.1g/dL (3.4-5.0) Albumin/Globulin Ratio 0.8 (1.0-1.7) Medications Current Medications Sodium Chloride 500 ml @ 500 mls/hr 1X ONCE IV Last administered on 15:30; Start 12/23/16 at 15:30; Stop 12/23/16 at 16:29; Status DC Sodium Chloride (Iv Sodium Chloride 0.9% 1000ml Bag) 1,000 ml @ 510 mls/hr Q1H58M IV ; Start 12/23/16 at 17:15; Stop 12/23/16 at 21:15; Status DC Ondansetron HCl 4 mg 4 mg PRN Q8HRS PRN IV NAUSEA/VOMITING; Start 12/23/16 at 17:15; Stop 12/24/16 at 17:14 Sodium Chloride (Iv Sodium Chloride 0.9% 1000ml Bag) 1,000 ml @ 125 mls/hr Q8H IV Last administered on 12/24/16 02:30; Start 12/23/16 at 17:04; Stop at 17:03 Acetaminophen (Tylenol) 650 mg PRN Q4HRS PRN PO FEVER; Start 12/23/16 at 17:15 ; Stop 12/24/16 at 17:14 Insulin Aspart (Novolog) 0-9 UNITS TIDWMEALS SQ ; Start 12/24/16 at 08:00 Dextrose 12.5 gm PRN Q15MIN PRN IV SEE COMMENTS; Start 12/23/16 at 21:45 Insulin Aspart (Novolog) 5 units TIDAC SQ ; Start 12/24/16 at 07:30; Stop at 07:30; Status DC Insulin Detemir (Levemir) 10 units QHS SQ Last administered on 12/23/16 22:37 ; Start 12/23/16 at 22:00; Stop 12/24/16 at 00:57; Status DC Insulin Aspart (Novolog) 10 units 1X ONCE SQ Last administered on 12/23/16 22 :36; Start 12/23/16 at 22:30; Stop 12/23/16 at 22:31; Status DC Potassium Chloride (Klor-Con) 20 meq [id number] PO Last administered on 10:03; Start 12/24/16 at 08:00 Enoxaparin Sodium (Lovenox Per Pharmacy Prophylaxis Dosing) 1 each PRN DAILY PRN MC SEE COMMENTS; Start 12/23/16 at 22:00 Enoxaparin Sodium (Lovenox 30mg Syringe) 30 mg QHS SQ Last administered on 12/23 22:38; Start 12/23/16 at 23:00 Insulin Aspart (Novolog) 15 units 1X ONCE SQ Last administered on 12/24/16 00 :11; Start 12/24/16 at 00:30; Stop 12/24/16 at 00:31; Status DC Insulin Aspart (Novolog) 15 units TIDAC SQ ; Start 12/24/16 at 07:30; Stop 12/24 at 09:36; Status DC Insulin Detemir (Levemir) 25 units QHS SQ ; Start 12/24/16 at 21:00; Stop at 21:00; Status DC Insulin Aspart (Novolog) 17 units 1X ONCE SQ Last administered on 12/24/16 01 :28; Start 12/24/16 at 01:15; Stop 12/24/16 at 01:16; Status DC Info (Do NOT chart on this placeholder) 0.5 each 1X ONCE MC ; Start 12/24/16 at 02:45; Stop 12/24/16 at 02:46; Status UNV Pneumococcal Polyvalent Vaccine (Do NOT chart on this placeholder) 0.5 each 1X ONCE MC ; Start 12/24/16 at 02:45; Stop 12/24/16 at 02:46; Status UNV Influenza Virus Vaccine Quadrival (Fluarix Quad [id number] Syringe) 0.5 ml ONCE ONCE VAX IM Last administered on 12/24/16 09:32; Start 12/24/16 at 09:00; Stop 12/24/16 at 09:04; Status DC Pneumococcal Polyvalent Vaccine (Pneumovax 23) 0.5 ml ONCE ONCE VAX IM Last administered on 12/24/16t 09:31; Start 12/24/16 at 09:00; Stop 12/24/16 at 09:04 ; Status DC Celecoxib (Celebrex) 200 mg PRN BID PRN PO PAIN; Start 12/24/16 at 09:45 Cyclobenzaprine HCl (Flexeril) 10 mg PRN TID PRN PO SPASMS; Start 12/24/16 at 09:45 Acetaminophen/ Hydrocodone Bitart (Lortab 5/325) 1 tab PRN Q4HRS PRN PO MODERATE PAIN; Start 12/24/16 at 09:45 Losartan Potassium (Cozaar) 50 mg DAILY PO ; Start 12/25/16 at 09:00; Stop 12/25 at 09:00; Status DC Hydrochlorothiazide 12.5 mg 12.5 mg DAILY PO ; Start 12/25/16 at 09:00; Stop at 09:00; Status DC Magnesium Sulfate/ Dextrose (Magnesium Sulfate PREMIX 2GM) 50 ml @ 25 mls/hr PRN DAILY PRN IV for Mag < 1.7 on am labs; Start 12/24/16 at 11:00 Active Scripts Active Reported Cyclobenzaprine Hcl 10 Mg Tablet Omeprazole 20 Mg Capsule. Celecoxib 200 Mg Capsule Hydrocodone-Apap 5-300 (Hydrocodone Bit/Acetaminophen) 1 Each Tablet Losartan-Hctz 50-12.5 Mg Tab (Losartan/Hydrochlorothiazide) 1 Each Tablet Novolog Flexpen (Insulin Aspart) 100 Unit/1 Ml Insuln.pen 15 Unit SQ 1X Vitals/I & O Vital Sign - Last 24 Hours 12/23/16 12/23/16 12/23/16 12/23/16 14:06 15:00 15:30 16:00 Temp 98.0 98.0 Pulse 82 94 86 Resp 16 B/P 88/66 90/63 87/60 98/60 Pulse Ox 97 96 97 97 O2 Delivery Room Air Room Air Room Air Room Air 12/23/16 12/23/16 12/23/16 12/23/16 16:30 17:00 18:00 18:30 Pulse 90 52 94 96 B/P 104/71 108/77 122/79 111/72 Pulse Ox 97 98 96 95 O2 Delivery Room Air Room Air Room Air Room Air 12/23/16 12/23/16 12/24/16 12/24/16 20:00 23:00 02:06 03:00 Temp 97.7 97.5 97.5 97.7 97.5 97.5 Pulse 87 90 88 Resp 16 18 B/P 122/69 85/56 112/ Pulse Ox 97 97 96 O2 Delivery Room Air Room Air Room Air Room Air 12/24/16 07:00 Temp 97.8 97.8 Pulse 95 Resp 18 B/P 85/50 Pulse Ox 94 O2 Delivery Room Air Intake and Output 12/23/16 12/23/16 12/24/16 15:00 23:00 07:00 Intake Total 500 ml 700 ml Balance 500 ml 700 ml YAQUELIN YEAGER MD Dec 24, 2016 12:09
[2016-12-24 13:57] LABS: BILIRUBIN,URINE NEGATIVE (NEG); GLUCOSE,URINE >=1000 mg/dL (NEG); NITRITE,URINE NEGATIVE (NEG); PH,URINE 5.5; PROTEIN,URINE NEGATIVE (NEG-TRACE); UROBILINOGEN,URINE 0.2 mg/dL (0.2 mg/dL)
[2016-12-24 14:06] LABS: BACTERIA,URINE FEW /HPF (0-FEW); RBC,URINE OCC /HPF (0-2); SQUAMOUS EPITHELIAL CELL,UR FEW /LPF
--- NOTE | 2016-12-24 14:56 | RAD ---
EXAM: Renal/retroperitonal ultrasound HISTORY: Acute on chronic renal failure. COMPARISON: None. FINDINGS: Ultrasound of the kidneys, bladder and retroperitoneum was performed. The right kidney measures at least 7.9 cm. This may be an underestimate. Cortical thickness are not clearly decreased. The larry car operator suggests cortical hyperechogenicity on real-time scanning but this is not clearly seen on these images. There is no hydronephrosis. The left kidney measures at least 8.8 cm. Cortical thickness is preserved. The larry car operator suggests increased renal cortical echogenicity but this is not clearly seen on these images. There is no hydronephrosis. A benign cyst in the interpolar region measures 1.6 x 1.7 cm. The prostate is enlarged measuring 4.8 x 3.8 cm. It impresses mildly on the bladder base. There is diffuse bladder wall thickening. IMPRESSION: 1. The kidneys measure small consistent with atrophy. No hydronephrosis. 2. Benign 1.7 left renal cyst. 3. Prostatic hypertrophy. Diffuse bladder wall thickening indicates chronic outlet obstruction or inflammation.
--- NOTE | 2016-12-24 15:25 | RAD ---
PQRS Compliance Statement: One or more of the following individualized dose reduction techniques were utilized for this examination: 1. Automated exposure control 2. Adjustment of the mA and/or kV according to patient size 3. Use of iterative reconstruction technique CT of the chest without contrast, 12/24/2016: History: Left lower lobe opacity No IV contrast was administered for this exam due to the patient's known renal insufficiency. The thoracic aorta is of normal caliber. Several coronary artery calcifications are noted. The heart is not enlarged. No mediastinal adenopathy is seen. The thyroid gland is incompletely delineated on these scans but appears to be enlarged, more so on the right. There is a mass in the left lower lobe centered along the posterior aspect of the left hilum. Its margins are irregular and spiculated. It is therefore difficult to accurately measure, but is estimated at 4.4 cm in greatest diameter. There is mild adjacent streaky infiltrate in the superior segment of the left lower lobe. The mass cannot be from the vascular structures at the hilum on these noncontrast scans. The left lower lobe bronchus is patent. This mass probably involves the left lower lobe superior segmental bronchus. No air bronchograms are seen within this lesion. There are scattered linear parenchymal opacities in other portions of both lungs compatible with scars. There are groundglass and interstitial opacities in the posterior aspects of both lungs compatible with mild dependent atelectasis and/or edema. No pleural fluid is evident. The adrenal glands are unremarkable. Several low density lesions are present in both lobes of the liver. The largest of these lies posteriorly in the left lobe and measures 3.6 cm. It demonstrates a low internal CT number compatible with a cyst. The other smaller lesions demonstrate similar CT characteristics and are probably cysts, although some are too small to definitively characterize. IMPRESSION: 1. Left lower lobe mass involving the left hilum most likely represents a primary lung malignancy. An inflammatory process is much less likely. Bronchoscopic evaluation is suggested. 2. No mediastinal adenopathy is evident. 3. Mild coronary artery calcifications. 4. Hepatic cysts
[2016-12-24 15:27] VITALS: BP 123/79
[2016-12-24] MEDS: GLYBURIDE 5 MG TABLET PO SCH (17:54)
[2016-12-24 19:00] VITALS: BP 128/83
[2016-12-24 20:10] LABS: UR PROTEIN RD 15.7 mg/dL (Not Estab.)
[2016-12-24] MEDS ORDERED: INSULIN DETEMIR 300 UNITS/3 ML INSULN.PEN. SQ SCH (21:00)
[2016-12-24] MEDS: ENOXAPARIN 30 MG/0.3 ML DISP.SYRIN. SQ SCH (21:58)
[2016-12-24 23:00] VITALS: BP 126/85
[2016-12-25 03:00] VITALS: BP 145/91
[2016-12-25 07:15] VITALS: BP 112/70
[2016-12-25 07:47] LABS: ALBUMIN 2.6 g/dL (3.4-5.0); CALCIUM 9.1 mg/dL (8.5-10.1); CREATININE 1.7 mg/dL (0.7-1.3); GFR 47.3; PHOSPHORUS 2.5 mg/dL (2.6-4.7); POTASSIUM 4.4 mmol/L (3.5-5.1)
--- NOTE | 2016-12-25 08:10 | CONS ---
DATE OF CONSULTATION: 12/24/2016 PRIMARY PHYSICIAN: Dr. Cannon. REASON FOR CONSULTATION: Acute renal failure and electrolyte abnormalities. HISTORY OF PRESENT ILLNESS: The patient is a 81-year-old -[place] gentleman who is followed by Dr. Yancy Perez and Dr. Fatima for at least 20 years that he is aware of. He claims he has never been told that he had diabetes. However, for the last 3-4 weeks, he is getting extremely fatigued and tired. He also was unable to swallow his food. He claims he got stuck and would come back at times. He has lost 34 pounds by my calculation, he claims he was 185, 3 to 4 months ago and it is now down to 151. He stated in the ER, he had lost 21 pounds. He has been drinking at least two gallons of water a day because he was always so thirsty. He was extremely fatigued and tired, dizzy, lightheaded and had significant muscle weakness and presented to the ER for further evaluation, whereby he was noted to have a sugar of 628, which went up to 775. His calcium was mildly elevated. Potassium was mildly elevated and sodium was 133. He was diagnosed with hyperosmolar nonketotic state, although UA is not available to prove the ketones . Blood pressure is 88/66 at presentation and he has been given significant amount of IV fluids and currently is running on IV fluids. His blood pressure is still somewhat marginal at 85/50 and most recent reading, but he is feeling a whole lot better. His urine is clearing up also at this time. PAST MEDICAL HISTORY: As documented, newly diagnosed diabetes. FAMILY HISTORY: Negative for known kidney problems, or for diabetes that he is aware of. For rest of the details, please see electronic records. ROBIN AUGUSTINE MD DR: ROMY/joselito JOB#: [id number] / [id number]
[2016-12-25] MEDS ORDERED: LOSARTAN POTASSIUM 50 MG TABLET. PO SCH (09:00)
[2016-12-25] MEDS ORDERED: HYDROCHLOROTHIAZIDE 12.5 MG CAPSULE. PO SCH (09:00)
[2016-12-25] MEDS: GLYBURIDE 5 MG TABLET PO SCH ×2 (09:25→18:34)
[2016-12-25] MEDS: POTASSIUM CHLORIDE 20 MEQ TABLET.ER. PO SCH (09:26)
[2016-12-25] MEDS: INSULIN ASPART 300 UNITS/3 ML INSULN.PEN SQ SCH ×5 (09:30→18:39)
[2016-12-25 11:39] VITALS: BP 108/73
[2016-12-25] MEDS: INSULIN DETEMIR 300 UNITS/3 ML INSULN.PEN. SQ SCH (12:30)
[2016-12-25] MEDS ORDERED: MAGNESIUM SULFATE 2GM 50 ML IV ONE (12:30)
--- NOTE | 2016-12-25 12:31 | PDOC ---
SUBJECTIVE ROS BERTO Diogn better today, Vision is improved, was feeling strong enough to walk around CVS: no Orthopnea, no CP RESP: no SOB, no KING GI: no Nausea, no Vomiting : no Dysuria, no Urgency OBJECTIVE Vital Signs Vital Signs Date Time Temp Pulse Resp B/P Pulse Ox O2 Delivery O2 Flow Rate FiO2 12/25/16 11:39 98.1 95 16 108/73 97 Room Air 98.1 I & 0 Intake and Output 12/25/16 07:00 Intake Total 3545 ml Output Total 1050 ml Balance 2495 ml Intake Oral 720 ml IV Total 2825 ml Output Urine Total 1050 ml # Bowel Movements 1 PHYSICAL EXAM Physical Exam General Appearance: Awake Alert Oriented x 3 In no Distress Eyes: VIsion Unchanged Conjunctiva Normal EN: No EN Drainage Mucous Memb. moist Neck: no JVD no JVP Supple no Thyromegaly CVS: S1 S2 no Murmur No Gallop No Rub no Edema Resp: no Rales no Rhonchi no Acc. Muscle use GI: BS +ve NO Bruit Non Tender Non Distended : no CVA tenderness; no Suprapubic Tenderness Assessment & Plan BERTO - Presumed VMN due to dehydration from ^ed FSBS. Current FLuid and E- lyte status does not necessitate emergent need for Dialysis. Will re-evaluate for Dialysis in am CKD III - This may be his new baseline. ? Ischemic Nephropathy with smallish Rt Kidney VAZQUEZ as ntoed on Renal US - Start Flomax - URO eval as OP if Lung Cancer prognosis is accepatable Hypotension - suspect due to dehydration - now better hyponatremia - Pseudohyponatremia due to ^ FSBS; resolved Mild Met acidosis (NAG) - D/c IVF Dehydration - much better wtih IVF already Lwo Phos - IV Na Hpos lowish Mag - 1 gm today Possible Lung ca - Is his DM a Para-neoplastic Synd Discussed Plan of Care and prognosis etc. at length with pt COMMENT/RELEVANT DATA Meds Current Medications Medications (Trade) Dose Ordered Sig/Kelly Start Time Stop Time Status Last Admin Dose Admin Acetaminophen (Tylenol) 650 mg PRN Q4HRS PRN 12/23/16 17:15 12/24/16 17:14 DC Acetaminophen/ Hydrocodone Bitart (Lortab 5/325) 1 tab PRN Q4HRS PRN 12/24/16 09:45 Celecoxib (Celebrex) 200 mg PRN BID PRN 12/24/16 09:45 Cyclobenzaprine HCl (Flexeril) 10 mg PRN TID PRN 12/24/16 09:45 Dextrose 12.5 gm PRN Q15MIN PRN 12/23/16 21:45 Enoxaparin Sodium (Lovenox 30mg Syringe) 30 mg QHS 12/23/16 23:00 12/24/16 21:58 30 MG Enoxaparin Sodium (Lovenox Per Pharmacy Prophylaxis Dosing) 1 each PRN DAILY PRN 12/23/16 22:00 Glyburide (Diabeta) 5 mg BIDWMEALS 12/24/16 17:00 12/25/16 09:25 5 MG Hydrochlorothiazide (Microzide) 12.5 mg DAILY 12/25/16 09:00 12/25/16 09:00 DC Influenza Virus Vaccine Quadrival (Fluarix Quad [id number] Syringe) 0.5 ml ONCE ONCE 12/24/16 09:00 12/24/16 09:04 DC 12/24/16 09:32 0.5 ML Info (Do NOT chart on this placeholder) 0.5 each 1X ONCE 12/24/16 02:45 12/24/16 02:46 UNV Insulin Aspart (Novolog) 8 units TIDAC 12/25/16 12:00 Insulin Detemir (Levemir) 25 units QHS 12/24/16 21:00 12/24/16 21:00 DC Insulin Detemir 15 units 15 units DAILY08 12/25/16 12:30 Losartan Potassium (Cozaar) 50 mg DAILY 12/25/16 09:00 12/25/16 09:00 DC Magnesium Sulfate/ Dextrose (Magnesium Sulfate PREMIX 2GM) 50 ml @ 25 mls/hr 1X ONCE 12/25/16 12:30 12/25/16 14:29 Ondansetron HCl 4 mg 4 mg PRN Q8HRS PRN 12/23/16 17:15 12/24/16 17:14 DC Pneumococcal Polyvalent Vaccine (Do NOT chart on this placeholder) 0.5 each 1X ONCE 12/24/16 02:45 12/24/16 02:46 UNV Pneumococcal Polyvalent Vaccine (Pneumovax 23) 0.5 ml ONCE ONCE 12/24/16 09:00 12/24/16 09:04 DC 12/24/16 09:31 0.5 ML Potassium Chloride (Klor-Con) 20 meq DAILYWBKFT 12/24/16 08:00 12/25/16 09:26 20 MEQ Sodium Chloride (Iv Sodium Chloride 0.9% 500ml Bag) 500 ml @ 500 mls/hr 1X ONCE 12/23/16 15:30 12/23/16 16:29 DC 12/23/16 15:30 500 MLS/HR Sodium Chloride (Iv Sodium Chloride 0.9% 1000ml Bag) 1,000 ml @ 125 mls/hr Q8H 12/23/16 17:04 12/24/16 17:03 DC 12/24/16 12:26 125 MLS/HR Lab Laboratory Tests Test 12/24/16 12:30 12/24/16 16:59 12/24/16 20:51 12/25/16 06:55 Urine Collection Type Unknown Urine Color Yellow Urine Clarity Clear Urine pH 5.5 Urine Specific [place] 1.025 Urine Protein 15.7mg/dL (Not Estab.) Urine Glucose (UA) >=1000mg/dL (NEG) Urine Ketones (Stick) Tracemg/dL (NEG) Urine Blood Small (NEG) Urine Nitrite Negative (NEG) Urine Bilirubin Negative (NEG) Urine Urobilinogen Dipstick 0.2mg/dL (0.2 mg/dL) Urine Leukocyte Esterase Moderate (NEG) Urine RBC Occ/HPF (0-2) Urine WBC 11-20/HPF (0-4) Urine Squamous Epithelial Cells Few/LPF Urine Bacteria Few/HPF (0-FEW) Urine Mucus Slight/LPF Urine Random Sodium 98mmol/L (Not Estab.) Urine Creatinine 65.7mg/dL (Not Estab.) Urine Protein/Creatinine Ratio 239mg/g creat (0-200) Glucose (Fingerstick) 298mg/dL (70-99) 285mg/dL (70-99) Hemoglobin 11.9g/dL (13.0-17.5) Sodium Level 137mmol/L (136-145) Potassium Level 4.4mmol/L (3.5-5.1) Chloride Level 106mmol/L (98-107) Carbon Dioxide Level 20mmol/L (21-32) Anion Gap 11 (6-14) Blood Urea Nitrogen 29mg/dL (8-26) Creatinine 1.7mg/dL (0.7-1.3) Estimated GFR (Cockcroft-Gault) 47.3 Glucose Level 279mg/dL (70-99) Calcium Level 9.1mg/dL (8.5-10.1) Phosphorus Level 2.5mg/dL (2.6-4.7) Magnesium Level 1.7mg/dL (1.8-2.4) Albumin 2.6g/dL (3.4-5.0) Test 12/25/16 07:28 12/25/16 10:59 Glucose (Fingerstick) 254mg/dL (70-99) 369mg/dL (70-99) Other The right kidney measures at least 7.9 cm. This may be an underestimate. Cortical thickness are not clearly decreased. The manufacturer representative suggests cortical hyperechogenicity on real-time scanning but this is not clearly seen on these images. There is no hydronephrosis. The left kidney measures at least 8.8 cm. Cortical thickness is preserved. The manufacturer representative suggests increased renal cortical echogenicity but this is not clearly seen on these images. There is no hydronephrosis. A benign cyst in the interpolar region measures 1.6 x 1.7 cm. The prostate is enlarged measuring 4.8 x 3.8 cm. It impresses mildly on the bladder base. There is diffuse bladder wall thickening. IMPRESSION: 1. The kidneys measure small consistent with atrophy. No hydronephrosis. 2. Benign 1.7 left renal cyst. 3. Prostatic hypertrophy. Diffuse bladder wall thickening indicates chronic outlet obstruction or inflammation. CT Chest: 1. Left lower lobe mass involving the left hilum most likely represents a primary lung malignancy. An inflammatory process is much less likely. Bronchoscopic evaluation is suggested. 2. No mediastinal adenopathy is evident. 3. Mild coronary artery calcifications. 4. Hepatic cysts ROBIN AUGUSTINE MD Dec 25, 2016 12:31
[2016-12-25] MEDS ORDERED: SODIUM PHOSPHATE 40 MMOL in IV DEXTROSE 5% 250 ML IV ONE (13:00)
[2016-12-25] MEDS ORDERED: MAGNESIUM SULFATE 1GM 100 ML IV ONE (13:00)
--- NOTE | 2016-12-25 13:00 | PDOC ---
PROGRESS NOTES Chief Complaint Chief Complaint HONK DM new dx acute renal failure, vasomotor nephropathy Dysphagia, globus sensation, POA, resolved new spiculated pulmonary nodule History of Present Illness History of Present Illness BS 70s yesterday, changed from insulin to secretegogue. now blood sugars 300 range restart insulin, long and short acting and SSI lung nodule, pt WAS a heavy smoker, quit 25 yrs ago NO more dysphagia, ready for solids PLAn: Advance to DM diet DM education dc levemir and novolog scheduled - BS on low side now and he is INSULIN naive HE can start with some sulfonylureas, no metformin given BERTO CT scan to further delineate new lung nodule Dw pt and RN Keep SSI Vitals Vitals Vital Signs Date Time Temp Pulse Resp B/P Pulse Ox O2 Delivery O2 Flow Rate FiO2 12/25/16 11:39 98.1 95 16 108/73 97 Room Air 98.1 Physical Exam General: Alert, Oriented X3, Cooperative, No acute distress Abdomen: Normal bowel sounds, Soft, No tenderness, No hepatosplenomegaly Extremities: No clubbing, No cyanosis Skin: No rashes, Other (dry skin, poor turgor, ) Labs LABS Laboratory Tests Test 12/24/16 16:59 12/24/16 20:51 12/25/16 06:55 12/25/16 07:28 Glucose (Fingerstick) 298mg/dL (70-99) 285mg/dL (70-99) 254mg/dL (70-99) Hemoglobin 11.9g/dL (13.0-17.5) Sodium Level 137mmol/L (136-145) Potassium Level 4.4mmol/L (3.5-5.1) Chloride Level 106mmol/L (98-107) Carbon Dioxide Level 20mmol/L (21-32) Anion Gap 11 (6-14) Blood Urea Nitrogen 29mg/dL (8-26) Creatinine 1.7mg/dL (0.7-1.3) Estimated GFR (Cockcroft-Gault) 47.3 Glucose Level 279mg/dL (70-99) Calcium Level 9.1mg/dL (8.5-10.1) Phosphorus Level 2.5mg/dL (2.6-4.7) Magnesium Level 1.7mg/dL (1.8-2.4) Albumin 2.6g/dL (3.4-5.0) Test 12/25/16 10:59 Glucose (Fingerstick) 369mg/dL (70-99) Review of Systems Review of Systems eating well no new complaint Assessment and Plan Assessmemt and Plan consult onc and pulm for lung mass, Problems Medical Problems: (1) ARF (acute renal failure) Status: Acute (2) Dysphagia Status: Acute (3) Dysphagia Status: Acute (4) Hyperglycemia Status: Acute Problems: Comment Review of Relevant I have reviewed the following items alan (where applicable) has been applied. Labs Laboratory Tests Test 12/23/16 14:00 12/23/16 15:12 12/23/16 22:14 12/23/16 23:35 Influenza Type A Antigen Negative (NEGATIVE) Influenza Type B Antigen Negative (NEGATIVE) White Blood Count 4.6x10^3/uL (4.0-11.0) Red Blood Count 5.17x10^6/uL (4.30-5.70) Hemoglobin 14.2g/dL (13.0-17.5) Hematocrit 44.5% (39.0-53.0) Mean Corpuscular Volume 86fL (79-100) Mean Corpuscular Hemoglobin 27pg (25-35) Mean Corpuscular Hemoglobin Concent 32g/dL (31-37) Red Cell Distribution Width 14.0% (11.5-14.5) Platelet Count 156x10^3/uL (140-400) Neutrophils (%) (Auto) 65% (31-73) Lymphocytes (%) (Auto) 27% (24-48) Monocytes (%) (Auto) 6% (0-9) Eosinophils (%) (Auto) 2% (0-3) Basophils (%) (Auto) 1% (0-3) Neutrophils # (Auto) 3.0x10^3uL (1.8-7.7) Lymphocytes # (Auto) 1.3x10^3/uL (1.0-4.8) Monocytes # (Auto) 0.3x10^3/uL (0.0-1.1) Eosinophils # (Auto) 0.1x10^3/uL (0.0-0.7) Basophils # (Auto) 0.0x10^3/uL (0.0-0.2) Sodium Level 133mmol/L (136-145) 133mmol/L (136-145) 135mmol/L (136-145) Potassium Level 5.2mmol/L (3.5-5.1) 5.3mmol/L (3.5-5.1) 5.0mmol/L (3.5-5.1) Chloride Level 95mmol/L (98-107) 98mmol/L (98-107) 100mmol/L (98-107) Carbon Dioxide Level 24mmol/L (21-32) 20mmol/L (21-32) 22mmol/L (21-32) Anion Gap 14 (6-14) 15 (6-14) 13 (6-14) Blood Urea Nitrogen 62mg/dL (8-26) 63mg/dL (8-26) 61mg/dL (8-26) Creatinine 2.8mg/dL (0.7-1.3) 2.5mg/dL (0.7-1.3) 2.5mg/dL (0.7-1.3) Estimated GFR (Cockcroft-Gault) 26.6 30.3 30.3 Glucose Level 628mg/dL (70-99) 775mg/dL (70-99) 666mg/dL (70-99) Hemoglobin A1c 15.1% (4.8-5.6) Calcium Level 10.2mg/dL (8.5-10.1) 9.5mg/dL (8.5-10.1) 9.6mg/dL (8.5-10.1) Test 12/24/16 00:41 12/24/16 04:30 12/24/16 07:57 12/24/16 11:46 Glucose (Fingerstick) 507mg/dL (70-99) 78mg/dL (70-99) 323mg/dL (70-99) White Blood Count 4.9x10^3/uL (4.0-11.0) Red Blood Count 4.83x10^6/uL (4.30-5.70) Hemoglobin 13.2g/dL (13.0-17.5) Hematocrit 40.6% (39.0-53.0) Mean Corpuscular Volume 84fL (79-100) Mean Corpuscular Hemoglobin 27pg (25-35) Mean Corpuscular Hemoglobin Concent 33g/dL (31-37) Red Cell Distribution Width 13.9% (11.5-14.5) Platelet Count 145x10^3/uL (140-400) Neutrophils (%) (Auto) 52% (31-73) Lymphocytes (%) (Auto) 37% (24-48) Monocytes (%) (Auto) 8% (0-9) Eosinophils (%) (Auto) 3% (0-3) Basophils (%) (Auto) 0% (0-3) Neutrophils # (Auto) 2.6x10^3uL (1.8-7.7) Lymphocytes # (Auto) 1.8x10^3/uL (1.0-4.8) Monocytes # (Auto) 0.4x10^3/uL (0.0-1.1) Eosinophils # (Auto) 0.2x10^3/uL (0.0-0.7) Basophils # (Auto) 0.0x10^3/uL (0.0-0.2) Sodium Level 144mmol/L (136-145) Potassium Level 3.7mmol/L (3.5-5.1) Chloride Level 107mmol/L (98-107) Carbon Dioxide Level 25mmol/L (21-32) Anion Gap 12 (6-14) Blood Urea Nitrogen 54mg/dL (8-26) Creatinine 2.1mg/dL (0.7-1.3) Estimated GFR (Cockcroft-Gault) 37.0 BUN/Creatinine Ratio 26 (6-20) Glucose Level 98mg/dL (70-99) Uric Acid 10.2mg/dL (3.5-7.2) Calcium Level 9.9mg/dL (8.5-10.1) Ionized Calcium 1.32mmol/L (1.13-1.32) Phosphorus Level 2.7mg/dL (2.6-4.7) Magnesium Level 2.1mg/dL (1.8-2.4) Total Bilirubin 0.3mg/dL (0.2-1.0) Aspartate Amino Transf (AST/SGOT) 37U/L (15-37) Alanine Aminotransferase (ALT/SGPT) 63U/L (16-63) Alkaline Phosphatase 129U/L (46-116) Creatine Kinase 153U/L (39-308) Total Protein 7.0g/dL (6.4-8.2) Albumin 3.1g/dL (3.4-5.0) Albumin/Globulin Ratio 0.8 (1.0-1.7) Test 12/24/16 12:30 12/24/16 16:59 12/24/16 20:51 12/25/16 06:55 Urine Collection Type Unknown Urine Color Yellow Urine Clarity Clear Urine pH 5.5 Urine Specific [place] 1.025 Urine Protein 15.7mg/dL (Not Estab.) Urine Glucose (UA) >=1000mg/dL (NEG) Urine Ketones (Stick) Tracemg/dL (NEG) Urine Blood Small (NEG) Urine Nitrite Negative (NEG) Urine Bilirubin Negative (NEG) Urine Urobilinogen Dipstick 0.2mg/dL (0.2 mg/dL) Urine Leukocyte Esterase Moderate (NEG) Urine RBC Occ/HPF (0-2) Urine WBC 11-20/HPF (0-4) Urine Squamous Epithelial Cells Few/LPF Urine Bacteria Few/HPF (0-FEW) Urine Mucus Slight/LPF Urine Random Sodium 98mmol/L (Not Estab.) Urine Creatinine 65.7mg/dL (Not Estab.) Urine Protein/Creatinine Ratio 239mg/g creat (0-200) Glucose (Fingerstick) 298mg/dL (70-99) 285mg/dL (70-99) Hemoglobin 11.9g/dL (13.0-17.5) Sodium Level 137mmol/L (136-145) Potassium Level 4.4mmol/L (3.5-5.1) Chloride Level 106mmol/L (98-107) Carbon Dioxide Level 20mmol/L (21-32) Anion Gap 11 (6-14) Blood Urea Nitrogen 29mg/dL (8-26) Creatinine 1.7mg/dL (0.7-1.3) Estimated GFR (Cockcroft-Gault) 47.3 Glucose Level 279mg/dL (70-99) Calcium Level 9.1mg/dL (8.5-10.1) Phosphorus Level 2.5mg/dL (2.6-4.7) Magnesium Level 1.7mg/dL (1.8-2.4) Albumin 2.6g/dL (3.4-5.0) Test 12/25/16 07:28 12/25/16 10:59 Glucose (Fingerstick) 254mg/dL (70-99) 369mg/dL (70-99) Laboratory Tests Test 12/24/16 16:59 12/24/16 20:51 12/25/16 06:55 12/25/16 07:28 Glucose (Fingerstick) 298mg/dL (70-99) 285mg/dL (70-99) 254mg/dL (70-99) Hemoglobin 11.9g/dL (13.0-17.5) Sodium Level 137mmol/L (136-145) Potassium Level 4.4mmol/L (3.5-5.1) Chloride Level 106mmol/L (98-107) Carbon Dioxide Level 20mmol/L (21-32) Anion Gap 11 (6-14) Blood Urea Nitrogen 29mg/dL (8-26) Creatinine 1.7mg/dL (0.7-1.3) Estimated GFR (Cockcroft-Gault) 47.3 Glucose Level 279mg/dL (70-99) Calcium Level 9.1mg/dL (8.5-10.1) Phosphorus Level 2.5mg/dL (2.6-4.7) Magnesium Level 1.7mg/dL (1.8-2.4) Albumin 2.6g/dL (3.4-5.0) Test 12/25/16 10:59 Glucose (Fingerstick) 369mg/dL (70-99) Medications Current Medications Sodium Chloride 500 ml @ 500 mls/hr 1X ONCE IV Last administered on t 15:30; Start 12/23/16 at 15:30; Stop 12/23/16 at 16:29; Status DC Sodium Chloride (Iv Sodium Chloride 0.9% 1000ml Bag) 1,000 ml @ 510 mls/hr Q1H58M IV ; Start 12/23/16 at 17:15; Stop 12/23/16 at 21:15; Status DC Ondansetron HCl 4 mg 4 mg PRN Q8HRS PRN IV NAUSEA/VOMITING; Start 12/23/16 at 17:15; Stop 12/24/16 at 17:14; Status DC Sodium Chloride (Iv Sodium Chloride 0.9% 1000ml Bag) 1,000 ml @ 125 mls/hr Q8H IV Last administered on 12/24/16 12:26; Start 12/23/16 at 17:04; Stop at 17:03; Status DC Acetaminophen (Tylenol) 650 mg PRN Q4HRS PRN PO FEVER; Start 12/23/16 at 17:15 ; Stop 12/24/16 at 17:14; Status DC Insulin Aspart (Novolog) 0-9 UNITS TIDWMEALS SQ Last administered on 12/25/16 11:35; Start 12/24/16 at 08:00 Dextrose 12.5 gm PRN Q15MIN PRN IV SEE COMMENTS; Start 12/23/16 at 21:45 Insulin Aspart (Novolog) 5 units TIDAC SQ ; Start 12/24/16 at 07:30; Stop at 07:30; Status DC Insulin Detemir (Levemir) 10 units QHS SQ Last administered on 12/23/16 22:37 ; Start 12/23/16 at 22:00; Stop 12/24/16 at 00:57; Status DC Insulin Aspart (Novolog) 10 units 1X ONCE SQ Last administered on 12/23/16 22 :36; Start 12/23/16 at 22:30; Stop 12/23/16 at 22:31; Status DC Potassium Chloride (Klor-Con) 20 meq DAILYWBKFT PO Last administered on 09:26; Start 12/24/16 at 08:00; Stop 12/25/16 at 12:34; Status DC Enoxaparin Sodium (Lovenox Per Pharmacy Prophylaxis Dosing) 1 each PRN DAILY PRN MC SEE COMMENTS; Start 12/23/16 at 22:00 Enoxaparin Sodium (Lovenox 30mg Syringe) 30 mg QHS SQ Last administered on 12/24 21:58; Start 12/23/16 at 23:00 Insulin Aspart (Novolog) 15 units 1X ONCE SQ Last administered on 12/24/16 00 :11; Start 12/24/16 at 00:30; Stop 12/24/16 at 00:31; Status DC Insulin Aspart (Novolog) 15 units TIDAC SQ ; Start 12/24/16 at 07:30; Stop 12/24 at 09:36; Status DC Insulin Detemir (Levemir) 25 units QHS SQ ; Start 12/24/16 at 21:00; Stop at 21:00; Status DC Insulin Aspart (Novolog) 17 units 1X ONCE SQ Last administered on 12/24/16 01 :28; Start 12/24/16 at 01:15; Stop 12/24/16 at 01:16; Status DC Info (Do NOT chart on this placeholder) 0.5 each 1X ONCE MC ; Start 12/24/16 at 02:45; Stop 12/24/16 at 02:46; Status UNV Pneumococcal Polyvalent Vaccine (Do NOT chart on this placeholder) 0.5 each 1X ONCE MC ; Start 12/24/16 at 02:45; Stop 12/24/16 at 02:46; Status UNV Influenza Virus Vaccine Quadrival (Fluarix Quad [id number] Syringe) 0.5 ml ONCE ONCE VAX IM Last administered on 12/24/16 09:32; Start 12/24/16 at 09:00; Stop 12/24/16 at 09:04; Status DC Pneumococcal Polyvalent Vaccine (Pneumovax 23) 0.5 ml ONCE ONCE VAX IM Last administered on 12/24/16 09:31; Start 12/24/16 at 09:00; Stop 12/24/16 at 09:04 ; Status DC Celecoxib (Celebrex) 200 mg PRN BID PRN PO PAIN; Start 12/24/16 at 09:45; Stop 12/25/16 at 12:34; Status DC Cyclobenzaprine HCl (Flexeril) 10 mg PRN TID PRN PO SPASMS; Start 12/24/16 at 09:45 Acetaminophen/ Hydrocodone Bitart (Lortab 5/325) 1 tab PRN Q4HRS PRN PO MODERATE PAIN; Start 12/24/16 at 09:45 Losartan Potassium (Cozaar) 50 mg DAILY PO ; Start 12/25/16 at 09:00; Stop 12/25 at 09:00; Status DC Hydrochlorothiazide 12.5 mg 12.5 mg DAILY PO ; Start 12/25/16 at 09:00; Stop at 09:00; Status DC Magnesium Sulfate/ Dextrose (Magnesium Sulfate PREMIX 2GM) 50 ml @ 25 mls/hr PRN DAILY PRN IV for Mag < 1.7 on am labs; Start 12/24/16 at 11:00 Glyburide (Diabeta) 5 mg BIDWMEALS PO Last administered on 12/25/16t 09:25; Start 12/24/16 at 17:00 Insulin Detemir 15 units 15 units DAILY08 SQ ; Start 12/25/16 at 12:30 Magnesium Sulfate/ Dextrose (Magnesium Sulfate PREMIX 2GM) 50 ml @ 25 mls/hr 1X ONCE IV ; Start 12/25/16 at 12:30; Stop 12/25/16 at 14:29 Insulin Aspart 8 units 8 units TIDAC SQ ; Start 12/25/16 at 12:00 Magnesium Sulfate/ Dextrose 100 ml @ 17 mls/hr 1X ONCE IV ; Start 12/25/16 at 13:00; Stop 12/25/16 at 18:52 Sodium Phosphate/ Dextrose 263.3333 ml @ 64.167 m... 1X ONCE IV ; Start at 13:00; Stop 12/25/16 at 17:06 Tamsulosin HCl (Flomax) 0.4 mg QHS PO ; Start 12/25/16 at 21:00 Active Scripts Active Reported Cyclobenzaprine Hcl 10 Mg Tablet Omeprazole 20 Mg Capsule. Celecoxib 200 Mg Capsule Hydrocodone-Apap 5-300 (Hydrocodone Bit/Acetaminophen) 1 Each Tablet Losartan-Hctz 50-12.5 Mg Tab (Losartan/Hydrochlorothiazide) 1 Each Tablet Novolog Flexpen (Insulin Aspart) 100 Unit/1 Ml Insuln.pen 15 Unit SQ 1X Vitals/I & O Vital Sign - Last 24 Hours 12/24/16 12/24/16 12/24/16 12/24/16 15:27 19:00 20:00 23:00 Temp 97.4 98.1 99.0 97.4 98.1 99.0 Pulse 88 84 83 Resp 18 18 18 B/P 123/79 128/83 126/85 Pulse Ox 97 97 95 O2 Delivery Room Air Room Air Room Air Room Air 12/25/16 12/25/16 12/25/16 12/25/16 03:00 07:15 08:00 11:39 Temp 97.5 98.1 98.1 97.5 98.1 98.1 Pulse 81 86 95 Resp 18 14 16 B/P 145/91 112/70 108/73 Pulse Ox 97 95 97 O2 Delivery Room Air Room Air Room Air Room Air Intake and Output 12/24/16 12/24/16 12/25/16 15:00 23:00 07:00 Intake Total 1455 ml 1190 ml 900 ml Output Total 700 ml 350 ml Balance 1455 ml 490 ml 550 ml MATHEW RODRIGUES MD Dec 25, 2016 12:59
--- NOTE | 2016-12-25 15:01 | PDOC ---
Provider Note Provider Note dictated LLL mass, Bronch noon 12/26 TELLO BLANCO MD Dec 25, 2016 15:01
[2016-12-25 15:37] VITALS: BP 121/78
[2016-12-25 15:43] LABS: INR 1.1 (0.8-1.1); PROTHROMBIN TIME PATIENT 13.4 SEC (11.7-14.0)
--- NOTE | 2016-12-25 15:52 | CONS ---
DATE OF CONSULTATION: ATTENDING PHYSICIAN: Dr. Cannon. REASON FOR CONSULTATION: Lung mass, weight loss, abnormal CT chest. HISTORY OF PRESENT ILLNESS: The patient is a 81-year-old male, who has been a smoker for 30 years before, quitting 10 years ago. He presented to the hospital after he has difficulty in swallowing food. The patient states he has lost about 20 pounds in the last 2 weeks. He has some mild exertional dyspnea. He states there is no cough, no hemoptysis. No headaches. No nausea, vomiting or diarrhea. I have reviewed the patient's CT chest, which was abnormal. The patient has a 4.4 cm mass in the left lower lobe. The margins are irregular and spiculated in suspicious for a primary lung malignancy. There are mild infiltrates distal to the mass. There is no significant pathological mediastinal adenopathy. There were some hepatic cysts. Consultation requested for further evaluation and management. PAST MEDICAL HISTORY: Significant for suspected COPD, unknown FEV1. PAST SURGICAL HISTORY: No recent surgery. ALLERGIES: None. REVIEW OF SYSTEMS: Twelve-point systems obtained. Pertinent positives discussed in my history of present illness, otherwise noncontributory. All systems that were negative were reviewed as well. SOCIAL HISTORY: Smoked for 30 years less than 1 pack per day. 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 MEDICATIONS: Reviewed, as this is in the MRAD. PHYSICAL EXAMINATION: VITAL SIGNS: Blood pressure 108/73, afebrile, pulse ox 97% on room air. HEENT: Sclerae nonicteric. NECK: Supple. LUNGS: Diminished breath sounds bilaterally. No crackles or wheezes. CARDIOVASCULAR: Regular rate and rhythm. ABDOMEN: Soft, nontender. EXTREMITIES: With no pitting edema. LABORATORY DATA: Reviewed. Influenza was negative. Chemistry shows a BUN of 29, creatinine 1.7. His blood sugars on admission was 775 and they are getting better for his BUN and creatinine was 63 and 2.51 on admission, which is improving as well. His white cell count is 4.9, hemoglobin is 11.9 and platelets are 145. IMPRESSION: 1. A 4.4 cm left lower lobe mass in the patient, who is an ex-smoker. He smoked for 30 years. He has lost about 20 pounds in the last [address] chest findings are highly concerning for a bronchogenic cancer. He would benefit from diagnostic bronchoscopy. 2. Suspected underlying chronic obstructive pulmonary disease. 3. Hyperglycemia, present on admission, currently improved. 4. Acute renal failure present on admission, which is improved with hydration. 5. Moderate protein-calorie malnutrition. RECOMMENDATIONS: 1. Discuss with the patient regarding the option of diagnostic bronchoscopy with biopsies. All risk and benefits were explained and he agreed to proceed with the procedure. 2. If there is no endobronchial lesion on the bronchoscopy, then will proceed with a CT-guided needle aspiration biopsy. 3. We will also obtain full PFTs. 4. Hold anticoagulation. 5. Continue with present bronchodilators. 6. Discussed with Dr. Cannon. We will make further recommendations after review of the bronchoscopy. TELLO BLANCO MD DR: GINGER/nts JOB#: [id number] / [id number] YEE
--- NOTE | 2016-12-25 16:06 | PDOC ---
Provider Note Provider Note Onc consult dictated- [id number] LLL Lung mass Newly diagnosed DM Balance and visual problems- DM vs ca? Bronch planned tomorrow Ct A/P ordered- staging of probable lung cancer and eval of possible pancreatic lesion as cause of new DM? Unfortunately renal function limits better imaging with contrast Will return Fri AM to discuss imaging, bronch. Left message for daughter as well. SHIRLEY CARRILLO DO Dec 25, 2016 16:06
[2016-12-25 19:00] VITALS: BP 150/70
[2016-12-25] MEDS: TAMSULOSIN 0.4 MG CAP.ER.24H. PO SCH (20:44)
[2016-12-25 23:00] VITALS: BP 131/81
[2016-12-26] VITALS (25 sets, daily range): BP systolic 118–140; BP diastolic 70–91
[2016-12-26 04:24] LABS: ALBUMIN 2.7 g/dL (3.4-5.0); CREATININE 1.4 mg/dL (0.7-1.3); GFR 59.2; PHOSPHORUS 3.5 mg/dL (2.6-4.7); POTASSIUM 4.2 mmol/L (3.5-5.1)
--- NOTE | 2016-12-26 06:52 | CONS ---
DATE OF CONSULTATION: 12/25/2016 REFERRING PROVIDER: Dr. Cannon. REASON FOR CONSULTATION: Lung mass. HISTORY OF PRESENT ILLNESS: The patient is a 81-year-old male who reports previously seeing his PCP very regularly. However, in the last couple of months, he has been experiencing polyuria, polydipsia and a loss of 20 pounds of weight. He was admitted through the Emergency Room and found to have a blood sugar near 800. Subsequently, his hemoglobin A1c has returned at 15.1. He had a CT head, noncontrast completed which was negative. Chest x-ray showed a concerning left lower lung lesion; therefore, he underwent CT chest, noncontrast, which revealed a 4.4 cm left lower lobe irregular spiculated mass. It is unclear with this noncontrast study if there is vascular involvement. There were also several low density lesions in the liver, but these were thought to most likely be cysts, he presented with acute kidney insufficiency with a creatinine of 2.8, now down to 1.7. He has been having some balance problems, decreased visual acuity. Otherwise, he denies any shortness of breath, cough, chest pain, palpitations, abdominal pain or neuropathy. PAST MEDICAL HISTORY: Hypertension, goiter, newly diagnosed diabetes. PAST SURGICAL HISTORY: Hernia repair, thyroid surgery. FAMILY HISTORY: Mom at the age of 38 from severe pneumonia. Dad's health is unknown. He has lost a brother to lung cancer and a daughter to uterine cancer and a son to gastric cancer. 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 He previously smoked half a pack a day for 30 years and quit 10 years ago. He previously also used to drink alcohol very heavily, but quit that approximately 10 years ago as well. ALLERGIES: No known drug allergies. CURRENT MEDICATIONS: Lortab, Flexeril, fentanyl, glyburide, Dilaudid, aspart, detemir, morphine sulfate, Zofran, Compazine, tamsulosin. REVIEW OF SYSTEMS: Twelve point review of systems completed and unremarkable with the exception of the weight loss, odynophagia, dysphagia, polydipsia, balance problems, vision changes. PHYSICAL EXAMINATION: VITAL SIGNS: Temperature 98.5, pulse 82, respiratory rate 16, blood pressure 121/78, 96% O2 on room air. GENERAL: He is alert and oriented and in no apparent distress. He appears to be very active and fit at baseline. HEENT: Extraocular muscle strength is intact. Mucous membranes are moist. CARDIOVASCULAR: Heart is regular in rhythm and rate. LUNGS: Clear to auscultation bilaterally. ABDOMEN: Soft, nontender. No obvious organomegaly. EXTREMITIES: No edema. NEUROLOGIC: No focal cranial deficits. He does seem to struggle with memory recall at times. IMAGING AND LABORATORY DATA: CBC unremarkable. CMP is notable for alkaline phosphatase of 129, creatinine 2.8, now down to 1.7. Glucose markedly elevated with hemoglobin A1c 15.1. Imaging reviewed as above. ASSESSMENT AND PLAN: The patient is a 81-year-old male with the following medical problems: 1. Left lower lung 4.4 cm irregular spiculated mass certainly concerning for an underlying malignancy, especially given his smoking history. Pulmonary has been consulted and is planning a bronchoscopy tomorrow. If there is not a lesion able to be biopsied, he will need a CT-guided biopsy of this lesion. There does not appear to be any associated mediastinal adenopathy. I have ordered a CT abdomen and pelvis without IV contrast due to his renal function to further evaluate these liver lesions. He has had a CT head, noncontrast that was negative. Currently, his renal function prohibits MRI of the head, though I am somewhat concerned about his balance problems, vision problems and at times memory difficulties. 2. Newly diagnosed diabetes with hemoglobin A1c 15.1, currently improving with medical management per Dr. Cannon. Given that he reports previously being very healthy, I am interested in the abdominal imaging to make sure that there is not a pancreatic malignancy. Thank you for this consultation. I will continue to follow along, returning Friday morning to review all of his CT scans, and bronchoscopy. Per the patient's request, I spoke with his daughter, Court Christopher about these findings as well. SHIRLEY CARRILLO DO DR: BARBARA/joselito JOB#: [id number] / [id number] YEE
[2016-12-26] MEDS ORDERED: FENTANYL PF 100 MCG/2 ML VIAL. IV PRN ×2 (07:00)
[2016-12-26] MEDS ORDERED: PROCHLORPERAZINE 10 MG/2 ML VIAL. IV PRN (07:00)
[2016-12-26] MEDS ORDERED: IV RINGERS,LACTATED 1000ML 1,000 ML IV SCH (07:00)
[2016-12-26] MEDS ORDERED: LIDOCAINE 1% 1 ML SYRINGE. ID PRN (07:00)
[2016-12-26] MEDS ORDERED: ONDANSETRON PF 4 MG/2 ML VIAL. IV PRN (07:00)
[2016-12-26] MEDS ORDERED: HYDROMORPHONE 2 MG/ML VIAL. IV PRN (07:00)
[2016-12-26] MEDS ORDERED: MORPHINE SULFATE 2 MG/ML DISP.SYRIN. IV PRN (07:00)
[2016-12-26] MEDS: INSULIN ASPART 300 UNITS/3 ML INSULN.PEN SQ SCH ×6 (07:30→17:56)
[2016-12-26] MEDS: GLYBURIDE 5 MG TABLET PO SCH ×2 (08:00→17:49)
--- NOTE | 2016-12-26 08:37 | RAD ---
CT of the abdomen and pelvis without contrast, 12/25/2016: History: Probable lung cancer, staging Multidetector CT imaging was performed following oral ingestion of contrast. No IV contrast was administered due to the patient's renal insufficiency. Several well-defined low-density lesions are present in both lobes of the liver. The largest of these demonstrate a low internal CT number is compatible with cysts. The gallbladder is unremarkable. There is a suggestion of pancreatic ductal dilatation, not clearly defined on these noncontrast scans. No pancreatic mass is evident. The spleen is of normal size. There is a small cyst laterally in the left kidney. The unopacified kidneys are otherwise unremarkable. No adrenal abnormality is detected. Aortoiliac calcific plaquing is present without evidence of aneurysm. No abdominal or pelvic adenopathy is seen. The bowel loops are not dilated. No free fluid or free air is evident in the abdomen or pelvis. There is a right inguinal hernia. The dilated right inguinal canal contains probably fat. No bowel herniation is evident. Moderate degenerative change is present in the lower lumbar spine. IMPRESSION: 1. Hepatic and left renal cysts. 2. Probable pancreatic ductal dilatation. 3. Right inguinal hernia. 4. No CT evidence of metastatic disease in the abdomen or pelvis. PQRS Compliance Statement: One or more of the following individualized dose reduction techniques were utilized for this examination: 1. Automated exposure control 2. Adjustment of the mA and/or kV according to patient size 3. Use of iterative reconstruction technique
[2016-12-26] MEDS ORDERED: ALBUTEROL SULFATE 2.5 MG/3 ML NEBU. ONE (09:09)
[2016-12-26] MEDS ORDERED: ALBUTEROL SULFATE 2.5 MG/3 ML NEBU. NEB ONE (09:10)
--- NOTE | 2016-12-26 09:10 | PDOC ---
PROGRESS NOTES Chief Complaint Chief Complaint 1. Acute Renal Failure 2. Vasomotor nephropathy 3. Diabetes Mellitus, new diagnosis 4. HONK 5. Globus sensation 6. Pulmonary nodule History of Present Illness History of Present Illness Pt laying down in bed awake, and alert when seen and examined this AM. Pt getting his fingerstick glucose, glucose at 196. Pt states that he is feeling "ok". Pt denies any CP or SOA. Pt ready for bronch this afternoon. All questions and concerns addressed and answered. Vitals Vitals Vital Signs Date Time Temp Pulse Resp B/P Pulse Ox O2 Delivery O2 Flow Rate FiO2 12/26/16 03:00 98.6 93 18 121/79 96 Room Air 98.6 Physical Exam General: Alert, Oriented X3, Cooperative, No acute distress Heart: Regular rate, Normal S1, Normal S2 Lungs: Clear Abdomen: Normal bowel sounds, Soft, No tenderness, No hepatosplenomegaly Extremities: No clubbing, No cyanosis, No tenderness/swelling Skin: No rashes, No significant lesion, Other (dry skin, poor turgor, ) Labs LABS Laboratory Tests Test 12/25/16 10:59 12/25/16 15:15 12/25/16 16:59 12/25/16 20:48 Glucose (Fingerstick) 369mg/dL (70-99) 185mg/dL (70-99) 174mg/dL (70-99) Prothrombin Time 13.4SEC (11.7-14.0) Prothromb Time International Ratio 1.1 (0.8-1.1) Test 12/26/16 03:40 12/26/16 07:52 Sodium Level 140mmol/L (136-145) Potassium Level 4.2mmol/L (3.5-5.1) Chloride Level 106mmol/L (98-107) Carbon Dioxide Level 22mmol/L (21-32) Anion Gap 12 (6-14) Blood Urea Nitrogen 20mg/dL (8-26) Creatinine 1.4mg/dL (0.7-1.3) Estimated GFR (Cockcroft-Gault) 59.2 Glucose Level 170mg/dL (70-99) Calcium Level 9.0mg/dL (8.5-10.1) Phosphorus Level 3.5mg/dL (2.6-4.7) Magnesium Level 1.7mg/dL (1.8-2.4) Albumin 2.7g/dL (3.4-5.0) Glucose (Fingerstick) 196mg/dL (70-99) Review of Systems Review of Systems Patient complaint of hunger Patient complaint of fatigue Assessment and Plan Assessmemt and Plan Problems Medical Problems: (1) ARF (acute renal failure) Status: Acute (2) Dysphagia Status: Acute (3) Dysphagia Status: Acute (4) Hyperglycemia Status: Acute Assessment: 1. Acute Renal Failure 2. Vasomotor nephropathy 3. Diabetes Mellitus, new diagnosis 4. HONK 5. Globus sensation 6. Pulmonary nodule Plan: Continue to monitor the patient per floor protocol Daily labs- CBC, BMP, BUN, and Cr Monitor daily Glucose Await Results of Bronch per Pulmonary Appreciate all Subspecialty input and evaluation DW RN Problems: Comment Review of Relevant I have reviewed the following items alan (where applicable) has been applied. Labs Laboratory Tests Test 12/24/16 11:46 12/24/16 12:30 12/24/16 16:59 12/24/16 20:51 Glucose (Fingerstick) 323mg/dL (70-99) 298mg/dL (70-99) 285mg/dL (70-99) Urine Collection Type Unknown Urine Color Yellow Urine Clarity Clear Urine pH 5.5 Urine Specific [place] 1.025 Urine Protein 15.7mg/dL (Not Estab.) Urine Glucose (UA) >=1000mg/dL (NEG) Urine Ketones (Stick) Tracemg/dL (NEG) Urine Blood Small (NEG) Urine Nitrite Negative (NEG) Urine Bilirubin Negative (NEG) Urine Urobilinogen Dipstick 0.2mg/dL (0.2 mg/dL) Urine Leukocyte Esterase Moderate (NEG) Urine RBC Occ/HPF (0-2) Urine WBC 11-20/HPF (0-4) Urine Squamous Epithelial Cells Few/LPF Urine Bacteria Few/HPF (0-FEW) Urine Mucus Slight/LPF Urine Random Sodium 98mmol/L (Not Estab.) Urine Creatinine 65.7mg/dL (Not Estab.) Urine Protein/Creatinine Ratio 239mg/g creat (0-200) Test 12/25/16 06:55 12/25/16 07:28 12/25/16 10:59 12/25/16 15:15 Hemoglobin 11.9g/dL (13.0-17.5) Sodium Level 137mmol/L (136-145) Potassium Level 4.4mmol/L (3.5-5.1) Chloride Level 106mmol/L (98-107) Carbon Dioxide Level 20mmol/L (21-32) Anion Gap 11 (6-14) Blood Urea Nitrogen 29mg/dL (8-26) Creatinine 1.7mg/dL (0.7-1.3) Estimated GFR (Cockcroft-Gault) 47.3 Glucose Level 279mg/dL (70-99) Calcium Level 9.1mg/dL (8.5-10.1) Phosphorus Level 2.5mg/dL (2.6-4.7) Magnesium Level 1.7mg/dL (1.8-2.4) Albumin 2.6g/dL (3.4-5.0) Glucose (Fingerstick) 254mg/dL (70-99) 369mg/dL (70-99) Prothrombin Time 13.4SEC (11.7-14.0) Prothromb Time International Ratio 1.1 (0.8-1.1) Test 12/25/16 16:59 12/25/16 20:48 12/26/16 03:40 12/26/16 07:52 Glucose (Fingerstick) 185mg/dL (70-99) 174mg/dL (70-99) 196mg/dL (70-99) Sodium Level 140mmol/L (136-145) Potassium Level 4.2mmol/L (3.5-5.1) Chloride Level 106mmol/L (98-107) Carbon Dioxide Level 22mmol/L (21-32) Anion Gap 12 (6-14) Blood Urea Nitrogen 20mg/dL (8-26) Creatinine 1.4mg/dL (0.7-1.3) Estimated GFR (Cockcroft-Gault) 59.2 Glucose Level 170mg/dL (70-99) Calcium Level 9.0mg/dL (8.5-10.1) Phosphorus Level 3.5mg/dL (2.6-4.7) Magnesium Level 1.7mg/dL (1.8-2.4) Albumin 2.7g/dL (3.4-5.0) Laboratory Tests Test 12/25/16 10:59 12/25/16 15:15 12/25/16 16:59 12/25/16 20:48 Glucose (Fingerstick) 369mg/dL (70-99) 185mg/dL (70-99) 174mg/dL (70-99) Prothrombin Time 13.4SEC (11.7-14.0) Prothromb Time International Ratio 1.1 (0.8-1.1) Test 12/26/16 03:40 12/26/16 07:52 Sodium Level 140mmol/L (136-145) Potassium Level 4.2mmol/L (3.5-5.1) Chloride Level 106mmol/L (98-107) Carbon Dioxide Level 22mmol/L (21-32) Anion Gap 12 (6-14) Blood Urea Nitrogen 20mg/dL (8-26) Creatinine 1.4mg/dL (0.7-1.3) Estimated GFR (Cockcroft-Gault) 59.2 Glucose Level 170mg/dL (70-99) Calcium Level 9.0mg/dL (8.5-10.1) Phosphorus Level 3.5mg/dL (2.6-4.7) Magnesium Level 1.7mg/dL (1.8-2.4) Albumin 2.7g/dL (3.4-5.0) Glucose (Fingerstick) 196mg/dL (70-99) Medications Current Medications Sodium Chloride 500 ml @ 500 mls/hr 1X ONCE IV Last administered on 15:30; Start 12/23/16 at 15:30; Stop 12/23/16 at 16:29; Status DC Sodium Chloride (Iv Sodium Chloride 0.9% 1000ml Bag) 1,000 ml @ 510 mls/hr Q1H58M IV ; Start 12/23/16 at 17:15; Stop 12/23/16 at 21:15; Status DC Ondansetron HCl 4 mg 4 mg PRN Q8HRS PRN IV NAUSEA/VOMITING; Start 12/23/16 at 17:15; Stop 12/24/16 at 17:14; Status DC Sodium Chloride (Iv Sodium Chloride 0.9% 1000ml Bag) 1,000 ml @ 125 mls/hr Q8H IV Last administered on 12/24/16 12:26; Start 12/23/16 at 17:04; Stop at 17:03; Status DC Acetaminophen (Tylenol) 650 mg PRN Q4HRS PRN PO FEVER; Start 12/23/16 at 17:15 ; Stop 12/24/16 at 17:14; Status DC Insulin Aspart (Novolog) 0-9 UNITS TIDWMEALS SQ Last administered on 12/25/16 18:38; Start 12/24/16 at 08:00 Dextrose 12.5 gm PRN Q15MIN PRN IV SEE COMMENTS; Start 12/23/16 at 21:45 Insulin Aspart (Novolog) 5 units TIDAC SQ ; Start 12/24/16 at 07:30; Stop at 07:30; Status DC Insulin Detemir (Levemir) 10 units QHS SQ Last administered on 12/23/16 22:37 ; Start 12/23/16 at 22:00; Stop 12/24/16 at 00:57; Status DC Insulin Aspart (Novolog) 10 units 1X ONCE SQ Last administered on 12/23/16 22 :36; Start 12/23/16 at 22:30; Stop 12/23/16 at 22:31; Status DC Potassium Chloride (Klor-Con) 20 meq [id number] PO Last administered on 09:26; Start 12/24/16 at 08:00; Stop 12/25/16 at 12:34; Status DC Enoxaparin Sodium (Lovenox Per Pharmacy Prophylaxis Dosing) 1 each PRN DAILY PRN MC SEE COMMENTS; Start 12/23/16 at 22:00; Stop 12/25/16 at 14:59; Status DC Enoxaparin Sodium (Lovenox 30mg Syringe) 30 mg QHS SQ Last administered on 12/24 21:58; Start 12/23/16 at 23:00; Stop 12/25/16 at 14:59; Status DC Insulin Aspart (Novolog) 15 units 1X ONCE SQ Last administered on 12/24/16 00 :11; Start 12/24/16 at 00:30; Stop 12/24/16 at 00:31; Status DC Insulin Aspart (Novolog) 15 units TIDAC SQ ; Start 12/24/16 at 07:30; Stop 12/24 at 09:36; Status DC Insulin Detemir (Levemir) 25 units QHS SQ ; Start 12/24/16 at 21:00; Stop at 21:00; Status DC Insulin Aspart (Novolog) 17 units 1X ONCE SQ Last administered on 12/24/16 01 :28; Start 12/24/16 at 01:15; Stop 12/24/16 at 01:16; Status DC Info (Do NOT chart on this placeholder) 0.5 each 1X ONCE MC ; Start 12/24/16 at 02:45; Stop 12/24/16 at 02:46; Status UNV Pneumococcal Polyvalent Vaccine (Do NOT chart on this placeholder) 0.5 each 1X ONCE MC ; Start 12/24/16 at 02:45; Stop 12/24/16 at 02:46; Status UNV Influenza Virus Vaccine Quadrival (Fluarix Quad [id number] Syringe) 0.5 ml ONCE ONCE VAX IM Last administered on 12/24/16 09:32; Start 12/24/16 at 09:00; Stop 12/24/16 at 09:04; Status DC Pneumococcal Polyvalent Vaccine (Pneumovax 23) 0.5 ml ONCE ONCE VAX IM Last administered on 12/24/16 09:31; Start 12/24/16 at 09:00; Stop 12/24/16 at 09:04 ; Status DC Celecoxib (Celebrex) 200 mg PRN BID PRN PO PAIN; Start 12/24/16 at 09:45; Stop 12/25/16 at 12:34; Status DC Cyclobenzaprine HCl (Flexeril) 10 mg PRN TID PRN PO SPASMS; Start 12/24/16 at 09:45 Acetaminophen/ Hydrocodone Bitart (Lortab 5/325) 1 tab PRN Q4HRS PRN PO MODERATE PAIN; Start 12/24/16 at 09:45 Losartan Potassium (Cozaar) 50 mg DAILY PO ; Start 12/25/16 at 09:00; Stop 12/25 at 09:00; Status DC Hydrochlorothiazide 12.5 mg 12.5 mg DAILY PO ; Start 12/25/16 at 09:00; Stop at 09:00; Status DC Magnesium Sulfate/ Dextrose (Magnesium Sulfate PREMIX 2GM) 50 ml @ 25 mls/hr PRN DAILY PRN IV for Mag < 1.7 on am labs; Start 12/24/16 at 11:00 Glyburide (Diabeta) 5 mg BIDWMEALS PO Last administered on 12/25/16 18:34; Start 12/24/16 at 17:00 Insulin Detemir 15 units 15 units DAILY08 SQ Last administered on 12/25/16 12: 30; Start 12/25/16 at 12:30 Magnesium Sulfate/ Dextrose (Magnesium Sulfate PREMIX 2GM) 50 ml @ 25 mls/hr 1X ONCE IV ; Start 12/25/16 at 12:30; Stop 12/25/16 at 14:29; Status DC Insulin Aspart 8 units 8 units TIDAC SQ Last administered on 12/25/16 18:39; Start 12/25/16 at 12:00 Magnesium Sulfate/ Dextrose 100 ml @ 17 mls/hr 1X ONCE IV Last administered on 12/25/16 14:19; Start 12/25/16 at 13:00; Stop 12/25/16 at 18:52; Status DC Sodium Phosphate/ Dextrose 263.3333 ml @ 64.167 m... 1X ONCE IV Last administered on 12/25/16 14:20; Start 12/25/16 at 13:00; Stop 12/25/16 at 17:06 ; Status DC Tamsulosin HCl (Flomax) 0.4 mg QHS PO Last administered on 12/25/16 20:44; Start 12/25/16 at 21:00 Ondansetron HCl (Zofran) 4 mg PRN Q6HRS PRN IV Nausea; Start 12/26/16 at 07:00 ; Stop 12/26/16 at 18:00 Fentanyl Citrate (Fentanyl 2ml Vial) 25 mcg PRN Q5MIN PRN IV MILD PAIN; Start 12/26/16 at 07:00; Stop 12/26/16 at 18:00 Fentanyl Citrate (Fentanyl 2ml Vial) 50 mcg PRN Q5MIN PRN IV MODERATE PAIN; Start 12/26/16 at 07:00; Stop 12/26/16 at 18:00 Morphine Sulfate 1 mg 1 mg PRN Q10MIN PRN IV SEVERE PAIN; Start 12/26/16 at 07: 00; Stop 12/26/16 at 18:00 Lactated Ringer's (Iv Lactated Ringers) 1,000 ml @ 30 mls/hr Q24H IV ; Start at 07:00; Stop 12/26/16 at 18:59 Lidocaine HCl 2 ml 1X PRN PRN ID IV START; Start 12/26/16 at 07:00; Stop at 18:00 Hydromorphone HCl (Dilaudid) 0.5 mg PRN Q10MIN PRN IV SEVERE PAIN, Second choice; Start 12/26/16 at 07:00; Stop 12/26/16 at 18:00 Prochlorperazine Edisylate (Compazine) 5 mg PACU PRN PRN IV NAUSEA; Start 12/26 at 07:00; Stop 12/26/16 at 18:00 Active Scripts Active Reported Cyclobenzaprine Hcl 10 Mg Tablet Omeprazole 20 Mg Capsule.dr Celecoxib 200 Mg Capsule Hydrocodone-Apap 5-300 (Hydrocodone Bit/Acetaminophen) 1 Each Tablet Losartan-Hctz 50-12.5 Mg Tab (Losartan/Hydrochlorothiazide) 1 Each Tablet Novolog Flexpen (Insulin Aspart) 100 Unit/1 Ml Insuln.pen 15 Unit SQ 1X Vitals/I & O Vital Sign - Last 24 Hours 12/25/16 12/25/16 12/25/16 12/25/16 11:39 15:37 19:00 20:00 Temp 98.1 98.5 98.7 98.1 98.5 98.7 Pulse 95 82 96 Resp 16 16 18 B/P 108/73 121/78 150/70 Pulse Ox 97 96 96 O2 Delivery Room Air Room Air Room Air Room Air 12/25/16 12/26/16 23:00 03:00 Temp 98.6 98.6 98.6 98.6 Pulse 90 93 Resp 18 18 B/P 131/81 121/79 Pulse Ox 97 96 O2 Delivery Room Air Room Air Intake and Output 12/25/16 12/25/16 12/26/16 15:00 23:00 07:00 Intake Total 480 ml 1280 ml Output Total 550 ml 825 ml Balance 480 ml 730 ml -825 ml JEN THAYER III DO Dec 26, 2016 09:10
[2016-12-26] MEDS ORDERED: PROPOFOL 20 ML IV ONE (09:35)
--- NOTE | 2016-12-26 10:16 | PDOC ---
PULMONARY PROGRESS NOTES Subjective no soa Vitals Vital Signs Date Time Temp Pulse Resp B/P Pulse Ox O2 Delivery O2 Flow Rate FiO2 12/26/16 10:00 98.2 89 20 116/78 98 Nasal Cannula 2 98.2 General: Alert, No acute distress Lungs: Clear Cardiovascular: S1 Abdomen: Soft Neuro Exam: Alert Extremities: No Edema Skin: Warm Labs Laboratory Tests Test 12/24/16 11:46 12/24/16 12:30 12/24/16 16:59 12/24/16 20:51 Glucose (Fingerstick) 323mg/dL (70-99) 298mg/dL (70-99) 285mg/dL (70-99) Urine Collection Type Unknown Urine Color Yellow Urine Clarity Clear Urine pH 5.5 Urine Specific [place] 1.025 Urine Protein 15.7mg/dL (Not Estab.) Urine Glucose (UA) >=1000mg/dL (NEG) Urine Ketones (Stick) Tracemg/dL (NEG) Urine Blood Small (NEG) Urine Nitrite Negative (NEG) Urine Bilirubin Negative (NEG) Urine Urobilinogen Dipstick 0.2mg/dL (0.2 mg/dL) Urine Leukocyte Esterase Moderate (NEG) Urine RBC Occ/HPF (0-2) Urine WBC 11-20/HPF (0-4) Urine Squamous Epithelial Cells Few/LPF Urine Bacteria Few/HPF (0-FEW) Urine Mucus Slight/LPF Urine Random Sodium 98mmol/L (Not Estab.) Urine Creatinine 65.7mg/dL (Not Estab.) Urine Protein/Creatinine Ratio 239mg/g creat (0-200) Test 12/25/16 06:55 12/25/16 07:28 12/25/16 10:59 12/25/16 15:15 Hemoglobin 11.9g/dL (13.0-17.5) Sodium Level 137mmol/L (136-145) Potassium Level 4.4mmol/L (3.5-5.1) Chloride Level 106mmol/L (98-107) Carbon Dioxide Level 20mmol/L (21-32) Anion Gap 11 (6-14) Blood Urea Nitrogen 29mg/dL (8-26) Creatinine 1.7mg/dL (0.7-1.3) Estimated GFR (Cockcroft-Gault) 47.3 Glucose Level 279mg/dL (70-99) Calcium Level 9.1mg/dL (8.5-10.1) Phosphorus Level 2.5mg/dL (2.6-4.7) Magnesium Level 1.7mg/dL (1.8-2.4) Albumin 2.6g/dL (3.4-5.0) Glucose (Fingerstick) 254mg/dL (70-99) 369mg/dL (70-99) Prothrombin Time 13.4SEC (11.7-14.0) Prothromb Time International Ratio 1.1 (0.8-1.1) Test 12/25/16 16:59 12/25/16 20:48 12/26/16 03:40 12/26/16 07:52 Glucose (Fingerstick) 185mg/dL (70-99) 174mg/dL (70-99) 196mg/dL (70-99) Sodium Level 140mmol/L (136-145) Potassium Level 4.2mmol/L (3.5-5.1) Chloride Level 106mmol/L (98-107) Carbon Dioxide Level 22mmol/L (21-32) Anion Gap 12 (6-14) Blood Urea Nitrogen 20mg/dL (8-26) Creatinine 1.4mg/dL (0.7-1.3) Estimated GFR (Cockcroft-Gault) 59.2 Glucose Level 170mg/dL (70-99) Calcium Level 9.0mg/dL (8.5-10.1) Phosphorus Level 3.5mg/dL (2.6-4.7) Magnesium Level 1.7mg/dL (1.8-2.4) Albumin 2.7g/dL (3.4-5.0) Laboratory Tests Test 12/25/16 10:59 12/25/16 15:15 12/25/16 16:59 12/25/16 20:48 Glucose (Fingerstick) 369mg/dL (70-99) 185mg/dL (70-99) 174mg/dL (70-99) Prothrombin Time 13.4SEC (11.7-14.0) Prothromb Time International Ratio 1.1 (0.8-1.1) Test 12/26/16 03:40 12/26/16 07:52 Sodium Level 140mmol/L (136-145) Potassium Level 4.2mmol/L (3.5-5.1) Chloride Level 106mmol/L (98-107) Carbon Dioxide Level 22mmol/L (21-32) Anion Gap 12 (6-14) Blood Urea Nitrogen 20mg/dL (8-26) Creatinine 1.4mg/dL (0.7-1.3) Estimated GFR (Cockcroft-Gault) 59.2 Glucose Level 170mg/dL (70-99) Calcium Level 9.0mg/dL (8.5-10.1) Phosphorus Level 3.5mg/dL (2.6-4.7) Magnesium Level 1.7mg/dL (1.8-2.4) Albumin 2.7g/dL (3.4-5.0) Glucose (Fingerstick) 196mg/dL (70-99) Medications Active Scripts Medications Dose Route/Sig Days Date Category Cyclobenzaprine Hcl 10 Mg Tablet 12/24/16 Reported Omeprazole 20 Mg Capsule.dr 12/24/16 Reported Celecoxib 200 Mg Capsule 12/24/16 Reported Hydrocodone-Apap 5-300 (Hydrocodone Bit/Acetaminophen) 1 Each Tablet 12/24/16 Reported Losartan-Hctz 50-12.5 Mg Tab (Losartan/Hydrochlorothiazide) 1 Each Tablet 12/24/16 Reported Novolog Flexpen (Insulin Aspart) 100 Unit/1 Ml Insuln.pen 15 Unit SQ 1X 12/24/16 Reported Impression . 1. A 4.4 cm left lower lobe mass in the patient, who is an ex-smoker. He smoked for 30 years. He has lost about 20 pounds in the last [address] chest findings are highly concerning for a bronchogenic cancer. He would benefit from diagnostic bronchoscopy. 2. Suspected underlying chronic obstructive pulmonary disease. 3. Hyperglycemia, present on admission, currently improved. 4. Acute renal failure present on admission, which is improved with hydration. 5. Moderate protein-calorie malnutrition. Plan . 1. Discuss with the patient regarding the option of diagnostic bronchoscopy with biopsies. All risk and benefits were explained and he agreed to proceed with the procedure. 2. If there is no endobronchial lesion on the bronchoscopy, then will proceed with a CT-guided needle aspiration biopsy. 3. We will also obtain full PFTs. 4. Hold anticoagulation. 5. Continue with present bronchodilators. 6. Discussed with Dr. Cannon. We will make further recommendations after review of the bronchoscopy. TELLO BLANCO MD Dec 26, 2016 10:15
--- NOTE | 2016-12-26 10:46 | OP ---
DATE OF SURGERY: BRONCHOSCOPY NOTE INDICATION: Lung mass. DESCRIPTION OF PROCEDURE: Informed consent was obtained from the patient. All risks and benefits were explained. He agreed to proceed with the procedure. Sedation ____ was given by anesthesia. Bronchoscopy was introduced into the left nostril. The upper airway was passed. Vocal cords moves equally with respiration. The trachea was entered. No tracheal lesions seen. The clementina was sharp. The right lung was first examined. All subsegments of right upper lobe, right middle and right lower lobe were patent. No endobronchial lesions seen. No purulent secretions seen. The bronchoscope was introduced into the left lung. All the subsegments of left upper lobe and lingula were examined. There were no lesions. Upon inspection of the left lower lobe, there was slightly indentation at the lateral subsegment of the left lower lobe. This was probably caused by some extrinsic compression. Cytology brush from that area was performed. Biopsies could not be done from that area. Bronchoalveolar lavage performed from left lower lobe. This would be a nondiagnostic bronchoscopy. The patient tolerated the procedure well. IMPRESSION: 1. No definite endobronchial lesions seen except mild indentation at the lateral subsegment of the left lower lobe caused by extrinsic compression by the tumor. 2. Cytology brush was performed from that area along with bronchoalveolar lavage. 3. I would recommend doing a CT-guided biopsy. 4. Follow the results of the bronchoscopy. TELLO BLANCO MD DR: GINGER/joselito JOB#: [id number] / [id number]
--- NOTE | 2016-12-26 11:12 | PDOC ---
SUBJECTIVE ROS BERTO/ CKD III Doign oK, Just back from Bronch CVS: no Orthopnea, no CP RESP: no SOB, no KING; min cough GI: no Nausea, no Vomiting : no Dysuria, no Urgency OBJECTIVE Vital Signs Vital Signs Date Time Temp Pulse Resp B/P Pulse Ox O2 Delivery O2 Flow Rate FiO2 12/26/16 11:00 97.5 99 20 135/91 96 Room Air 97.5 12/26/16 10:00 2 I & 0 Intake and Output 12/26/16 07:00 Intake Total 1760 ml Output Total 1375 ml Balance 385 ml Intake Oral 1760 ml Output Urine Total 1375 ml # Voids 4 PHYSICAL EXAM Physical Exam General Appearance: Awake Alert Oriented x 3 In no Distress Eyes: VIsion Unchanged Conjunctiva Normal EN: No EN Drainage Mucous Memb. moist Neck: no JVD no JVP Supple no Thyromegaly CVS: S1 S2 no Murmur No Gallop No Rub no Edema Resp: no Rales no Rhonchi no Acc. Muscle use GI: BS +ve NO Bruit Non Tender Non Distended : no CVA tenderness; no Suprapubic Tenderness Assessment & Plan BERTO - Presumed VMN due to dehydration from ^ed FSBS.nwo resolved - watch off of IVF CKD III - This may be his new baseline. ? Ischemic Nephropathy with smallish Rt Kidney BPH (without LUTS) as noted on Renal US - Started Flomax - URO eval as OP if Lung ? Cancer prognosis is acceptable Lwo Phos - better after IV Na Hpos lowish Mag - 1 gm today again Possible Lung ca - Is his DM a Para-neoplastic Synd - await Bronch results Discussed Plan of Care with pt - will be available as needed. F/up with PCP COMMENT/RELEVANT DATA Meds Current Medications Medications (Trade) Dose Ordered Sig/Kelly Start Time Stop Time Status Last Admin Dose Admin Acetaminophen (Tylenol) 650 mg PRN Q4HRS PRN 12/23/16 17:15 12/24/16 17:14 DC Acetaminophen/ Hydrocodone Bitart (Lortab 5/325) 1 tab PRN Q4HRS PRN 12/24/16 09:45 Albuterol Sulfate (Ventolin Neb Soln) 2.5 mg 1X ONCE 12/26/16 09:10 12/26/16 10:30 DC 12/26/16 09:10 2.5 MG Albuterol Sulfate 2.5 mg 2.5 mg STK-MED ONCE 12/26/16 09:09 12/26/16 09:10 DC Celecoxib (Celebrex) 200 mg PRN BID PRN 12/24/16 09:45 12/25/16 12:34 DC Cyclobenzaprine HCl (Flexeril) 10 mg PRN TID PRN 12/24/16 09:45 Dextrose 12.5 gm PRN Q15MIN PRN 12/23/16 21:45 Enoxaparin Sodium (Lovenox 30mg Syringe) 30 mg QHS 12/23/16 23:00 12/25/16 14:59 DC 12/24/16 21:58 30 MG Enoxaparin Sodium (Lovenox Per Pharmacy Prophylaxis Dosing) 1 each PRN DAILY PRN 12/23/16 22:00 12/25/16 14:59 DC Fentanyl Citrate (Fentanyl 2ml Vial) 50 mcg PRN Q5MIN PRN 12/26/16 07:00 12/26/16 18:00 Glyburide (Diabeta) 5 mg BIDWMEALS 12/24/16 17:00 12/25/16 18:34 5 MG Hydrochlorothiazide (Microzide) 12.5 mg DAILY 12/25/16 09:00 12/25/16 09:00 DC Hydromorphone HCl (Dilaudid) 0.5 mg PRN Q10MIN PRN 12/26/16 07:00 12/26/16 18:00 Influenza Virus Vaccine Quadrival (Fluarix Quad 9146-1365 Syringe) 0.5 ml ONCE ONCE 12/24/16 09:00 12/24/16 09:04 DC 12/24/16 09:32 0.5 ML Info (Do NOT chart on this placeholder) 0.5 each 1X ONCE 12/24/16 02:45 12/24/16 02:46 UNV Insulin Aspart (Novolog) 17 units 1X ONCE 12/24/16 01:15 12/24/16 01:16 DC 12/24/16 01:28 17 UNITS Insulin Aspart 8 units 8 units TIDAC 12/25/16 12:00 12/25/16 18:39 8 UNITS Insulin Detemir (Levemir) 25 units QHS 12/24/16 21:00 12/24/16 21:00 DC Insulin Detemir 15 units 15 units DAILY08 12/25/16 12:30 12/25/16 12:30 15 UNITS Lactated Ringer's (Iv Lactated Ringers) 1,000 ml @ 30 mls/hr Q24H 12/26/16 07:00 12/26/16 18:59 Lidocaine HCl 2 ml 1X PRN PRN 12/26/16 07:00 12/26/16 18:00 Losartan Potassium (Cozaar) 50 mg DAILY 12/25/16 09:00 12/25/16 09:00 DC Magnesium Sulfate/ Dextrose 100 ml @ 17 mls/hr 1X ONCE 12/25/16 13:00 12/25/16 18:52 DC 12/25/16 14:19 17 MLS/HR Magnesium Sulfate/ Dextrose (Magnesium Sulfate PREMIX 2GM) 50 ml @ 25 mls/hr 1X ONCE 12/25/16 12:30 12/25/16 14:29 DC Morphine Sulfate 1 mg 1 mg PRN Q10MIN PRN 12/26/16 07:00 12/26/16 18:00 Ondansetron HCl (Zofran) 4 mg PRN Q6HRS PRN 12/26/16 07:00 12/26/16 18:00 Ondansetron HCl 4 mg 4 mg PRN Q8HRS PRN 12/23/16 17:15 12/24/16 17:14 DC Pneumococcal Polyvalent Vaccine (Do NOT chart on this placeholder) 0.5 each 1X ONCE 12/24/16 02:45 12/24/16 02:46 UNV Pneumococcal Polyvalent Vaccine (Pneumovax 23) 0.5 ml ONCE ONCE 12/24/16 09:00 12/24/16 09:04 DC 12/24/16 09:31 0.5 ML Potassium Chloride (Klor-Con) 20 meq [id number] 12/24/16 08:00 12/25/16 12:34 DC 12/25/16 09:26 20 MEQ Prochlorperazine Edisylate (Compazine) 5 mg PACU PRN PRN 12/26/16 07:00 12/26/16 18:00 Propofol (Diprivan) 20 ml @ As Directed STK-MED ONCE 12/26/16 09:35 12/26/16 09:36 DC Sodium Chloride (Iv Sodium Chloride 0.9% 500ml Bag) 500 ml @ 500 mls/hr 1X ONCE 12/23/16 15:30 12/23/16 16:29 DC 12/23/16 15:30 500 MLS/HR Sodium Chloride (Iv Sodium Chloride 0.9% 1000ml Bag) 1,000 ml @ 125 mls/hr Q8H 12/23/16 17:04 12/24/16 17:03 DC 12/24/16 12:26 125 MLS/HR Sodium Phosphate/ Dextrose 263.3333 ml @ 64.167 m... 1X ONCE 12/25/16 13:00 12/25/16 17:06 DC 12/25/16 14:20 64.167 MLS/HR Tamsulosin HCl (Flomax) 0.4 mg QHS 12/25/16 21:00 12/25/16 20:44 0.4 MG Lab Laboratory Tests Test 12/25/16 15:15 12/25/16 16:59 12/25/16 20:48 12/26/16 03:40 Prothrombin Time 13.4SEC (11.7-14.0) Prothromb Time International Ratio 1.1 (0.8-1.1) Glucose (Fingerstick) 185mg/dL (70-99) 174mg/dL (70-99) Sodium Level 140mmol/L (136-145) Potassium Level 4.2mmol/L (3.5-5.1) Chloride Level 106mmol/L (98-107) Carbon Dioxide Level 22mmol/L (21-32) Anion Gap 12 (6-14) Blood Urea Nitrogen 20mg/dL (8-26) Creatinine 1.4mg/dL (0.7-1.3) Estimated GFR (Cockcroft-Gault) 59.2 Glucose Level 170mg/dL (70-99) Calcium Level 9.0mg/dL (8.5-10.1) Phosphorus Level 3.5mg/dL (2.6-4.7) Magnesium Level 1.7mg/dL (1.8-2.4) Albumin 2.7g/dL (3.4-5.0) Test 12/26/16 07:52 Glucose (Fingerstick) 196mg/dL (70-99) ROBIN AUGUSTINE MD Dec 26, 2016 11:11
[2016-12-26] MEDS ORDERED: LIDOCAINE 1% / SOD BICARB 8.4% 20 ML VIAL. IJ ONE ×2 (12:07→12:45)
[2016-12-26] MEDS ORDERED: IOHEXOL 300 MG/ML 50 ML VIAL. ONE (12:12)
[2016-12-26] MEDS ORDERED: IOHEXOL 300 MG/ML 75 ML VIAL ONE (12:12)
[2016-12-26] MEDS ORDERED: NALOXONE 0.4 MG/ML VIAL. ONE (12:18)
[2016-12-26] MEDS ORDERED: FLUMAZENIL 0.5 MG/5 ML VIAL. IV ONE (12:19)
[2016-12-26] MEDS ORDERED: FENTANYL PF 250 MCG/5 ML VIAL. ONE (12:19)
[2016-12-26] MEDS ORDERED: MIDAZOLAM HCL/PF 5 MG/5 ML VIAL ONE (12:19)
[2016-12-26] MEDS ORDERED: FENTANYL PF 250 MCG/5 ML VIAL. IV ONE (12:45)
[2016-12-26] MEDS ORDERED: MIDAZOLAM HCL/PF 5 MG/5 ML VIAL IV ONE (12:45)
[2016-12-26] MEDS ORDERED: IOHEXOL 300 MG/ML 100ML VIAL. IART ONE (12:45)
--- NOTE | 2016-12-26 13:18 | PDOC ---
MODERATE SEDATION ASSESSMENT RISKS/ALTERNATIVES Risks/Alternatives Risks and alternatives of this type of sedation and procedure discussed with: RISK/ALTERNATIVES: Patient H & P ON CHART H & P H & P on chart and reviewed for co-morbid conditions and appropriate labs. H&P ON CHART: Yes STATUS PREG STATUS ASSESSED: N/A MEDS/ALLERGIES REVIEWED Meds/Allergies Reviewed Medications and Allergies including time and route of recently administered narcotics and sedatives. MEDS/ALLERGIES REVIEWED: Yes ASA RATING ASA RATING: III AIRWAY ASSESSMENT Airway Assessment Airway patency, oral function limitations, presence of caps, crowns, dentures, partials, and ability to extend neck assessed. AIRWAY ASSESSMENT: Yes MALLAMPATI SCORE MALLAMPATI SCORE: II PRE-SEDATION ASSESSMENT PRE-SEDATION ASSESSMENT: Yes JIM BEDOLLA MD Dec 26, 2016 13:18
--- NOTE | 2016-12-26 13:22 | PDOC ---
Exam Powerhouse Mechanic Supervisor Powerhouse Mechanic Supervisor Deborah Pre-Procedure Diagnosis Pre-Procedure Diagnosis 81 YO previous smoker with wt loss and abnormal CT chest, with left hilar- parahilar mass suggesting bronchogenic carcinoma. Post-Procedure Diagnosis Post-Procedure Diagnosis Same Procedure Performed Procedure Performed CT guided bx left parahilar lung mass Type of Anesthesia Type of Anesthesia Local + Mod sedation Estimated Blood Loss EBL: Minimal Specimens Specimans 4 18G core bx to path in formalin Condition of Patient Condition of Patient Stable. No apparent complication--no immediate post bx Ptx Disposition Disposition From IR/CT to 524. 2 hr post bx insp/exp CXR requested. F/u with [facility] and Dr Casey. Full report to follow. JIM BEDOLLA MD Dec 26, 2016 13:22
--- NOTE | 2016-12-26 15:42 | RAD ---
EXAM: Chest inspiration/expiration. HISTORY: Left lung biopsy. COMPARISON: 12/23/2016. FINDINGS: There is a tiny left apical pneumothorax. There is focal atelectasis peripheral to the left hilum. There is no clear pleural effusion. The heart is not enlarged. There is contrast in the colon. There is a chronic left lateral rib fracture. IMPRESSION: 1. Tiny left apical pneumothorax.
[2016-12-26] MEDS: IV NORMAL SALINE 1000ML BAG 1,000 ML IV SCH (17:44)
[2016-12-26] MEDS: INSULIN DETEMIR 300 UNITS/3 ML INSULN.PEN. SQ SCH (17:57)
[2016-12-26] MEDS: TAMSULOSIN 0.4 MG CAP.ER.24H. PO SCH (20:20)
[2016-12-27] VITALS (17 sets, daily range): BP systolic 117–153; BP diastolic 59–94
[2016-12-27] MEDS: IV NORMAL SALINE 1000ML BAG 1,000 ML IV SCH (01:24)
[2016-12-27 06:57] LABS: BASO % 0 % (0-3); EOS % 2 % (0-3); HEMATOCRIT 34.8 % (39.0-53.0); HEMOGLOBIN 11.4 g/dL (13.0-17.5); LYMPH # 1.1 x10^3/uL (1.0-4.8); LYMPH % 23 % (24-48); MEAN CORPUSCULAR HEMOGLOBIN 28 pg (25-35); MEAN CORPUSCULAR HGB CONC 33 g/dL (31-37); MEAN CORPUSCULAR VOLUME 84 fL (79-100); MONO % 7 % (0-9); NEUT % 68 % (31-73); PLATELET COUNT 103 x10^3/uL (140-400); RED BLOOD COUNT 4.16 x10^6/uL (4.30-5.70); RED CELL DISTRIBUTION WIDTH 14.3 % (11.5-14.5); WHITE BLOOD COUNT 4.5 x10^3/uL (4.0-11.0)
[2016-12-27 07:15] LABS: CREATININE 1.3 mg/dL (0.7-1.3); GFR 64.4; POTASSIUM 4.7 mmol/L (3.5-5.1)
[2016-12-27 07:22] LABS: ALBUMIN 2.7 g/dL (3.4-5.0); CALCIUM 8.9 mg/dL (8.5-10.1); CREATININE 1.3 mg/dL (0.7-1.3); GFR 64.4; PHOSPHORUS 3.2 mg/dL (2.6-4.7); POTASSIUM 4.4 mmol/L (3.5-5.1)
[2016-12-27] MEDS: INSULIN ASPART 300 UNITS/3 ML INSULN.PEN SQ SCH ×6 (07:30→17:07)
--- NOTE | 2016-12-27 07:49 | PDOC ---
Provider Note Provider Note IR Note: Post bx left Ptx enlarging. Dr Casey contacted. Chest tube insertion requested--on IR schedule today. JIM BEDOLLA MD Dec 27, 2016 07:49
--- NOTE | 2016-12-27 07:51 | RAD ---
EXAM: Chest one view. HISTORY: Pneumothorax. COMPARISON: 12/26/2016. FINDINGS: A frontal view of the chest is obtained. The left pneumothorax has increased in size and is now moderate. Opacity at the left hilum consistent with postbiopsy change has also increased mildly. There is mild atelectasis on the right. There is no clear pleural effusion. The heart is not enlarged. There is a chronic left rib fracture. IMPRESSION: 1. The left pneumothorax has increased and is now moderate. These findings were called to Claire by Davy Morales on 12/27/2016 at 0745.
[2016-12-27] MEDS: GLYBURIDE 5 MG TABLET PO SCH ×2 (08:00→17:01)
--- NOTE | 2016-12-27 08:02 | RAD ---
CT-guided left lung biopsy Indication: 81-year-old male previous smoker with weight loss and with a large left hilar/parahilar lung mass, suggesting bronchogenic carcinoma. Bronchoscopy was nondiagnostic. CT-guided biopsy has been requested. Anesthesia: 44 minutes moderate sedation provided utilizing a total of 1 mg Versed and 50 mcg fentanyl, IV. The patient was appropriately monitored by a qualified independent observer throughout the time of moderate sedation. Consent: The procedure was explained in its entirety to the patient and/or the patient's designated sales representative canvas products by a member of the treatment team. This included a discussion of risks and benefits and acceptable alternatives to the procedure, as well as expected consequences of no treatment at all. Discussion of risks included, but was not limited to, those that are most frequent and those that are rare, but possibly severe or life-threatening, as well as the possibility of unforeseen complications. Contrast material: 50 cc Omnipaque 300. Procedure: Informed consent was obtained from the patient. He was placed prone on the CT scanner. Preliminary precontrast CT images confirmed the previously described noncalcified, confluent left hilar/infrahilar left lower lobe soft tissue mass. Dynamic IV contrast CT images were then performed, providing visualization of major pulmonary vessels. A left posterior skin site suitable for CT-guided biopsy was selected and marked. That area was prepped and draped in the usual sterile fashion. Moderate sedation was provided with IV Versed and fentanyl. Using aseptic technique, local anesthesia, and CT guidance, a 17-gauge guide needle was successfully advanced into posterior aspect of the infrahilar soft tissue mass. A total of 4 18-gauge core biopsy samples were obtained. Biopsy material was submitted in formalin to pathology. The biopsy guide needle was removed and a sterile dressing was applied. Completion CT images revealed a minimal postbiopsy pneumothorax. A follow-up aspiration/expiration chest x-ray will be obtained in 2 hours. Impression: Successful CT-guided left lung biopsy. Completion CT images revealed a minimal postbiopsy pneumothorax. A follow-up aspiration/expiration chest x-ray will be obtained in 2 hours, for further evaluation. PQRS Compliance Statement: One or more of the following individualized dose reduction techniques was utilized for this procedure: 1. Automated exposure control. 2. Adjustment of MA and/or KV according to patient size. 3. Iterative reconstruction technique.
[2016-12-27] MEDS ORDERED: FENTANYL PF 100 MCG/2 ML VIAL. ONE (09:27)
[2016-12-27] MEDS ORDERED: FLUMAZENIL 0.5 MG/5 ML VIAL. IV ONE (09:27)
[2016-12-27] MEDS ORDERED: NALOXONE 0.4 MG/ML VIAL. ONE (09:27)
[2016-12-27] MEDS ORDERED: MIDAZOLAM HCL 2 MG/2 ML VIAL. ONE (09:27)
[2016-12-27] MEDS ORDERED: LIDOCAINE 1% / SOD BICARB 8.4% 20 ML VIAL. IJ ONE ×2 (09:37→10:00)
[2016-12-27] MEDS ORDERED: FENTANYL PF 100 MCG/2 ML VIAL. IV ONE (10:00)
[2016-12-27] MEDS ORDERED: MIDAZOLAM HCL 2 MG/2 ML VIAL. IV ONE (10:00)
--- NOTE | 2016-12-27 10:03 | PDOC ---
Exam Advance Agent Advance Agent Deborah Journeyman Operator Assistant Journeyman Operator Assistant F Ndumbu Pre-Procedure Diagnosis Pre-Procedure Diagnosis Post left lung bx enlarging Ptx Post-Procedure Diagnosis Post-Procedure Diagnosis Same Procedure Performed Procedure Performed CT guided left chest tube insertion Type of Anesthesia Type of Anesthesia Local + Mod sedation Estimated Blood Loss EBL: Minimal Drain/Tubes Drains/Tubes 12F locking pigtail left chest tube---to PleurEvac Condition of Patient Condition of Patient Stable. No apparent complication. Disposition Disposition From IR/CT return to [facility]. Chest tube to wall suction at -20 cm H2O. Chest tube management per Dr Casey. Full report to follow. JIM BEDOLLA MD Dec 27, 2016 10:03
--- NOTE | 2016-12-27 10:25 | PDOC ---
Subjective: Subjective: Onc f/u- LLL mass, probable malignancy Pt had bronch and CT guided bx yesterday, now with pneumothorax. SOB is not significant for him now. No CP, cough. Objective: Vital Signs: Vital Signs Date Time Temp Pulse Resp B/P Pulse Ox O2 Delivery O2 Flow Rate FiO2 12/27/16 10:00 14 93 Nasal Cannula 4.0 12/27/16 09:56 92 12/27/16 07:15 99.1 121/59 99.1 Physical Exam: Heart: Regular rate General: Alert, Oriented X3, Cooperative, No acute distress Lungs: Other (Decreased breath sounds on left lung, right lung clear) Psych/Mental Status: Mental status NL, Mood NL Skin: No significant lesion Labs/Imaging: CT A/P neg Bronch- no endobronchial lesions CXR today- Moderate left PTX CT guided bx done yesterday Assessment/Plan A/P: 1. 4 cm LLL mass concerning for early stage malignancy, no adenopathy or metastatic disease noted with noncontrast CT C/A/P/head. S/p bx 12/26. Path pending. 2. CKD 3. H/o Tob abuse 4. Left pneumothorax, chest tube to be place today. Dr. Velarde is covering this weekend if urgent issues arise. I will return Friday. We discussed that it will likely be mid/ late next week until we know results so I will plan to f/u at that time, likely in clinic as outpt. Called and left message for his daughter Court ([phone]) per his request as well. SHIRLEY CARRILLO DO Dec 27, 2016 10:25
--- NOTE | 2016-12-27 12:18 | PDOC ---
PROGRESS NOTES Chief Complaint Chief Complaint 1. Acute Renal Failure 2. Vasomotor nephropathy 3. Diabetes Mellitus, new diagnosis 4. HONK 5. Globus sensation 6. Pulmonary nodule History of Present Illness History of Present Illness Pt laying down in bed awake, and alert when seen and examined this AM. Pt denies any CP or SOA. Small pneumothorax noted, pt to have chest tube inserted. VSS- All questions and concerns addressed and answered. Vitals Vitals Vital Signs Date Time Temp Pulse Resp B/P Pulse Ox O2 Delivery O2 Flow Rate FiO2 12/27/16 11:10 73 145/86 12/27/16 10:26 18 98 Nasal Cannula 2.0 12/27/16 07:15 99.1 99.1 Physical Exam General: Alert, Oriented X3, Cooperative, No acute distress Heart: Regular rate, Normal S1, Normal S2 Lungs: Clear Abdomen: Normal bowel sounds, Soft, No tenderness, No hepatosplenomegaly Extremities: No clubbing, No cyanosis, No tenderness/swelling Skin: No rashes, No breakdown, No significant lesion Labs LABS Laboratory Tests Test 12/26/16 16:23 12/26/16 20:46 12/27/16 06:20 12/27/16 07:15 Glucose (Fingerstick) 236mg/dL (70-99) 233mg/dL (70-99) 145mg/dL (70-99) White Blood Count 4.5x10^3/uL (4.0-11.0) Red Blood Count 4.16x10^6/uL (4.30-5.70) Hemoglobin 11.4g/dL (13.0-17.5) Hematocrit 34.8% (39.0-53.0) Mean Corpuscular Volume 84fL (79-100) Mean Corpuscular Hemoglobin 28pg (25-35) Mean Corpuscular Hemoglobin Concent 33g/dL (31-37) Red Cell Distribution Width 14.3% (11.5-14.5) Platelet Count 103x10^3/uL (140-400) Neutrophils (%) (Auto) 68% (31-73) Lymphocytes (%) (Auto) 23% (24-48) Monocytes (%) (Auto) 7% (0-9) Eosinophils (%) (Auto) 2% (0-3) Basophils (%) (Auto) 0% (0-3) Neutrophils # (Auto) 3.1x10^3uL (1.8-7.7) Lymphocytes # (Auto) 1.1x10^3/uL (1.0-4.8) Monocytes # (Auto) 0.3x10^3/uL (0.0-1.1) Eosinophils # (Auto) 0.1x10^3/uL (0.0-0.7) Basophils # (Auto) 0.0x10^3/uL (0.0-0.2) Sodium Level 139mmol/L (136-145) Potassium Level 4.7mmol/L (3.5-5.1) Chloride Level 106mmol/L (98-107) Carbon Dioxide Level 25mmol/L (21-32) Anion Gap 8 (6-14) Blood Urea Nitrogen 12mg/dL (8-26) Creatinine 1.3mg/dL (0.7-1.3) Estimated GFR (Cockcroft-Gault) 64.4 Glucose Level 149mg/dL (70-99) Calcium Level 9.0mg/dL (8.5-10.1) Phosphorus Level 3.2mg/dL (2.6-4.7) Magnesium Level 1.8mg/dL (1.8-2.4) Albumin 2.7g/dL (3.4-5.0) Test 12/27/16 11:12 Glucose (Fingerstick) 135mg/dL (70-99) Review of Systems Review of Systems Patient complaint of hunger Patient complaint of fatigue Assessment and Plan Assessmemt and Plan Problems Medical Problems: (1) ARF (acute renal failure) Status: Acute (2) Dysphagia Status: Acute (3) Dysphagia Status: Acute (4) Hyperglycemia Status: Acute Assessment: 1. Acute Renal Failure 2. Vasomotor nephropathy 3. Diabetes Mellitus, new diagnosis 4. HONK 5. Globus sensation 6. Pulmonary nodule Plan: Continue to monitor the patient per floor protocol Continue daily labs- CBC, BMP, BUN, and Cr Daily PTOT Continue IVFs at 100cc/hr Appreciate all subspecialty input and recommendations Await pathology results of lung biopsy Chest tube inserted-appreciate Pulm recommendations and management DW RN Problems: Comment Review of Relevant I have reviewed the following items alan (where applicable) has been applied. Labs Laboratory Tests Test 12/25/16 15:15 12/25/16 16:59 12/25/16 20:48 12/26/16 03:40 Prothrombin Time 13.4SEC (11.7-14.0) Prothromb Time International Ratio 1.1 (0.8-1.1) Glucose (Fingerstick) 185mg/dL (70-99) 174mg/dL (70-99) Sodium Level 140mmol/L (136-145) Potassium Level 4.2mmol/L (3.5-5.1) Chloride Level 106mmol/L (98-107) Carbon Dioxide Level 22mmol/L (21-32) Anion Gap 12 (6-14) Blood Urea Nitrogen 20mg/dL (8-26) Creatinine 1.4mg/dL (0.7-1.3) Estimated GFR (Cockcroft-Gault) 59.2 Glucose Level 170mg/dL (70-99) Calcium Level 9.0mg/dL (8.5-10.1) Phosphorus Level 3.5mg/dL (2.6-4.7) Magnesium Level 1.7mg/dL (1.8-2.4) Albumin 2.7g/dL (3.4-5.0) Test 12/26/16 07:52 12/26/16 11:05 12/26/16 16:23 12/26/16 20:46 Glucose (Fingerstick) 196mg/dL (70-99) 239mg/dL (70-99) 236mg/dL (70-99) 233mg/dL (70-99) Test 12/27/16 06:20 12/27/16 07:15 12/27/16 11:12 White Blood Count 4.5x10^3/uL (4.0-11.0) Red Blood Count 4.16x10^6/uL (4.30-5.70) Hemoglobin 11.4g/dL (13.0-17.5) Hematocrit 34.8% (39.0-53.0) Mean Corpuscular Volume 84fL (79-100) Mean Corpuscular Hemoglobin 28pg (25-35) Mean Corpuscular Hemoglobin Concent 33g/dL (31-37) Red Cell Distribution Width 14.3% (11.5-14.5) Platelet Count 103x10^3/uL (140-400) Neutrophils (%) (Auto) 68% (31-73) Lymphocytes (%) (Auto) 23% (24-48) Monocytes (%) (Auto) 7% (0-9) Eosinophils (%) (Auto) 2% (0-3) Basophils (%) (Auto) 0% (0-3) Neutrophils # (Auto) 3.1x10^3uL (1.8-7.7) Lymphocytes # (Auto) 1.1x10^3/uL (1.0-4.8) Monocytes # (Auto) 0.3x10^3/uL (0.0-1.1) Eosinophils # (Auto) 0.1x10^3/uL (0.0-0.7) Basophils # (Auto) 0.0x10^3/uL (0.0-0.2) Sodium Level 139mmol/L (136-145) Potassium Level 4.7mmol/L (3.5-5.1) Chloride Level 106mmol/L (98-107) Carbon Dioxide Level 25mmol/L (21-32) Anion Gap 8 (6-14) Blood Urea Nitrogen 12mg/dL (8-26) Creatinine 1.3mg/dL (0.7-1.3) Estimated GFR (Cockcroft-Gault) 64.4 Glucose Level 149mg/dL (70-99) Calcium Level 9.0mg/dL (8.5-10.1) Phosphorus Level 3.2mg/dL (2.6-4.7) Magnesium Level 1.8mg/dL (1.8-2.4) Albumin 2.7g/dL (3.4-5.0) Glucose (Fingerstick) 145mg/dL (70-99) 135mg/dL (70-99) Laboratory Tests Test 12/26/16 16:23 12/26/16 20:46 12/27/16 06:20 12/27/16 07:15 Glucose (Fingerstick) 236mg/dL (70-99) 233mg/dL (70-99) 145mg/dL (70-99) White Blood Count 4.5x10^3/uL (4.0-11.0) Red Blood Count 4.16x10^6/uL (4.30-5.70) Hemoglobin 11.4g/dL (13.0-17.5) Hematocrit 34.8% (39.0-53.0) Mean Corpuscular Volume 84fL (79-100) Mean Corpuscular Hemoglobin 28pg (25-35) Mean Corpuscular Hemoglobin Concent 33g/dL (31-37) Red Cell Distribution Width 14.3% (11.5-14.5) Platelet Count 103x10^3/uL (140-400) Neutrophils (%) (Auto) 68% (31-73) Lymphocytes (%) (Auto) 23% (24-48) Monocytes (%) (Auto) 7% (0-9) Eosinophils (%) (Auto) 2% (0-3) Basophils (%) (Auto) 0% (0-3) Neutrophils # (Auto) 3.1x10^3uL (1.8-7.7) Lymphocytes # (Auto) 1.1x10^3/uL (1.0-4.8) Monocytes # (Auto) 0.3x10^3/uL (0.0-1.1) Eosinophils # (Auto) 0.1x10^3/uL (0.0-0.7) Basophils # (Auto) 0.0x10^3/uL (0.0-0.2) Sodium Level 139mmol/L (136-145) Potassium Level 4.7mmol/L (3.5-5.1) Chloride Level 106mmol/L (98-107) Carbon Dioxide Level 25mmol/L (21-32) Anion Gap 8 (6-14) Blood Urea Nitrogen 12mg/dL (8-26) Creatinine 1.3mg/dL (0.7-1.3) Estimated GFR (Cockcroft-Gault) 64.4 Glucose Level 149mg/dL (70-99) Calcium Level 9.0mg/dL (8.5-10.1) Phosphorus Level 3.2mg/dL (2.6-4.7) Magnesium Level 1.8mg/dL (1.8-2.4) Albumin 2.7g/dL (3.4-5.0) Test 12/27/16 11:12 Glucose (Fingerstick) 135mg/dL (70-99) Microbiology 12/26/16 Gram Stain - Final, Complete 12/24/16 Urine Culture - Final, Complete 12/24/16 Urine Culture Result 1 (CHAVO) - Final, Complete Medications Current Medications Sodium Chloride 500 ml @ 500 mls/hr 1X ONCE IV Last administered on 15:30; Start 12/23/16 at 15:30; Stop 12/23/16 at 16:29; Status DC Sodium Chloride (Iv Sodium Chloride 0.9% 1000ml Bag) 1,000 ml @ 510 mls/hr Q1H58M IV ; Start 12/23/16 at 17:15; Stop 12/23/16 at 21:15; Status DC Ondansetron HCl 4 mg 4 mg PRN Q8HRS PRN IV NAUSEA/VOMITING; Start 12/23/16 at 17:15; Stop 12/24/16 at 17:14; Status DC Sodium Chloride (Iv Sodium Chloride 0.9% 1000ml Bag) 1,000 ml @ 125 mls/hr Q8H IV Last administered on 12/24/16 12:26; Start 12/23/16 at 17:04; Stop at 17:03; Status DC Acetaminophen (Tylenol) 650 mg PRN Q4HRS PRN PO FEVER; Start 12/23/16 at 17:15 ; Stop 12/24/16 at 17:14; Status DC Insulin Aspart (Novolog) 0-9 UNITS TIDWMEALS SQ Last administered on 12/26/16 17:56; Start 12/24/16 at 08:00 Dextrose 12.5 gm PRN Q15MIN PRN IV SEE COMMENTS; Start 12/23/16 at 21:45 Insulin Aspart (Novolog) 5 units TIDAC SQ ; Start 12/24/16 at 07:30; Stop at 07:30; Status DC Insulin Detemir (Levemir) 10 units QHS SQ Last administered on 12/23/16 22:37 ; Start 12/23/16 at 22:00; Stop 12/24/16 at 00:57; Status DC Insulin Aspart (Novolog) 10 units 1X ONCE SQ Last administered on 12/23/16 22 :36; Start 12/23/16 at 22:30; Stop 12/23/16 at 22:31; Status DC Potassium Chloride (Klor-Con) 20 meq [id number] PO Last administered on 09:26; Start 12/24/16 at 08:00; Stop 12/25/16 at 12:34; Status DC Enoxaparin Sodium (Lovenox Per Pharmacy Prophylaxis Dosing) 1 each PRN DAILY PRN MC SEE COMMENTS; Start 12/23/16 at 22:00; Stop 12/25/16 at 14:59; Status DC Enoxaparin Sodium (Lovenox 30mg Syringe) 30 mg QHS SQ Last administered on 12/24 21:58; Start 12/23/16 at 23:00; Stop 12/25/16 at 14:59; Status DC Insulin Aspart (Novolog) 15 units 1X ONCE SQ Last administered on 12/24/16 00 :11; Start 12/24/16 at 00:30; Stop 12/24/16 at 00:31; Status DC Insulin Aspart (Novolog) 15 units TIDAC SQ ; Start 12/24/16 at 07:30; Stop 12/24 at 09:36; Status DC Insulin Detemir (Levemir) 25 units QHS SQ ; Start 12/24/16 at 21:00; Stop at 21:00; Status DC Insulin Aspart (Novolog) 17 units 1X ONCE SQ Last administered on 12/24/16 01 :28; Start 12/24/16 at 01:15; Stop 12/24/16 at 01:16; Status DC Info (Do NOT chart on this placeholder) 0.5 each 1X ONCE MC ; Start 12/24/16 at 02:45; Stop 12/24/16 at 02:46; Status UNV Pneumococcal Polyvalent Vaccine (Do NOT chart on this placeholder) 0.5 each 1X ONCE MC ; Start 12/24/16 at 02:45; Stop 12/24/16 at 02:46; Status UNV Influenza Virus Vaccine Quadrival (Fluarix Quad [id number] Syringe) 0.5 ml ONCE ONCE VAX IM Last administered on 12/24/16 09:32; Start 12/24/16 at 09:00; Stop 12/24/16 at 09:04; Status DC Pneumococcal Polyvalent Vaccine (Pneumovax 23) 0.5 ml ONCE ONCE VAX IM Last administered on 12/24/16 09:31; Start 12/24/16 at 09:00; Stop 12/24/16 at 09:04 ; Status DC Celecoxib (Celebrex) 200 mg PRN BID PRN PO PAIN; Start 12/24/16 at 09:45; Stop 12/25/16 at 12:34; Status DC Cyclobenzaprine HCl (Flexeril) 10 mg PRN TID PRN PO SPASMS; Start 12/24/16 at 09:45 Acetaminophen/ Hydrocodone Bitart (Lortab 5/325) 1 tab PRN Q4HRS PRN PO MODERATE PAIN; Start 12/24/16 at 09:45 Losartan Potassium (Cozaar) 50 mg DAILY PO ; Start 12/25/16 at 09:00; Stop 12/25 at 09:00; Status DC Hydrochlorothiazide 12.5 mg 12.5 mg DAILY PO ; Start 12/25/16 at 09:00; Stop at 09:00; Status DC Magnesium Sulfate/ Dextrose (Magnesium Sulfate PREMIX 2GM) 50 ml @ 25 mls/hr PRN DAILY PRN IV for Mag < 1.7 on am labs; Start 12/24/16 at 11:00 Glyburide (Diabeta) 5 mg BIDWMEALS PO Last administered on 12/26/16 17:49; Start 12/24/16 at 17:00 Insulin Detemir 15 units 15 units [id number] SQ Last administered on 12/26/16 17: 57; Start 12/25/16 at 12:30 Magnesium Sulfate/ Dextrose (Magnesium Sulfate PREMIX 2GM) 50 ml @ 25 mls/hr 1X ONCE IV ; Start 12/25/16 at 12:30; Stop 12/25/16 at 14:29; Status DC Insulin Aspart 8 units 8 units TIDAC SQ Last administered on 12/26/16 17:56; Start 12/25/16 at 12:00 Magnesium Sulfate/ Dextrose 100 ml @ 17 mls/hr 1X ONCE IV Last administered on 12/25/16 14:19; Start 12/25/16 at 13:00; Stop 12/25/16 at 18:52; Status DC Sodium Phosphate/ Dextrose 263.3333 ml @ 64.167 m... 1X ONCE IV Last administered on 2/22/17at 14:20; Start 12/25/16 at 13:00; Stop 12/25/16 at 17:06 ; Status DC Tamsulosin HCl (Flomax) 0.4 mg QHS PO Last administered on 12/26/16t 20:20; Start 12/25/16 at 21:00 Ondansetron HCl (Zofran) 4 mg PRN Q6HRS PRN IV Nausea; Start 12/26/16 at 07:00 ; Stop 12/26/16 at 18:00; Status DC Fentanyl Citrate (Fentanyl 2ml Vial) 25 mcg PRN Q5MIN PRN IV MILD PAIN; Start 12/26/16 at 07:00; Stop 12/26/16 at 18:00; Status DC Fentanyl Citrate (Fentanyl 2ml Vial) 50 mcg PRN Q5MIN PRN IV MODERATE PAIN; Start 12/26/16 at 07:00; Stop 12/26/16 at 18:00; Status DC Morphine Sulfate 1 mg 1 mg PRN Q10MIN PRN IV SEVERE PAIN; Start 12/26/16 at 07: 00; Stop 12/26/16 at 18:00; Status DC Lactated Ringer's (Iv Lactated Ringers) 1,000 ml @ 30 mls/hr Q24H IV ; Start at 07:00; Stop 12/26/16 at 18:59; Status DC Lidocaine HCl 2 ml 1X PRN PRN ID IV START; Start 12/26/16 at 07:00; Stop at 18:00; Status DC Hydromorphone HCl (Dilaudid) 0.5 mg PRN Q10MIN PRN IV SEVERE PAIN, Second choice; Start 12/26/16 at 07:00; Stop 12/26/16 at 18:00; Status DC Prochlorperazine Edisylate (Compazine) 5 mg PACU PRN PRN IV NAUSEA; Start 12/26 at 07:00; Stop 12/26/16 at 18:00; Status DC Albuterol Sulfate 2.5 mg 2.5 mg STK-MED ONCE .ROUTE ; Start 12/26/16 at 09:09; Stop 12/26/16 at 09:10; Status DC Propofol (Diprivan) 20 ml @ As Directed STK-MED ONCE IV ; Start 12/26/16 at 09: 35; Stop 12/26/16 at 09:36; Status DC Albuterol Sulfate (Ventolin Neb Soln) 2.5 mg 1X ONCE NEB Last administered on 12/26/16 09:10; Start 12/26/16 at 09:10; Stop 12/26/16 at 10:30; Status DC Lidocaine/Sodium Bicarbonate (Buffered Lidocaine 1%) 20 ml STK-MED ONCE IJ ; Start 12/26/16 at 12:07; Stop 12/26/16 at 12:08; Status DC Iohexol (Omnipaque 300 Mg/ml) 50 ml STK-MED ONCE .ROUTE ; Start 12/26/16 at 12: 12; Stop 12/26/16 at 12:13; Status DC Iohexol (Omnipaque 300 Mg/ml) 75 ml STK-MED ONCE .ROUTE ; Start 12/26/16 at 12: 12; Stop 12/26/16 at 12:13; Status DC Naloxone HCl (Narcan) 0.4 mg STK-MED ONCE .ROUTE ; Start 12/26/16 at 12:18; Stop 12/26/16 at 12:19; Status DC Flumazenil (Romazicon) 0.5 mg STK-MED ONCE IV ; Start 12/26/16 at 12:19; Stop at 12:20; Status DC Midazolam HCl (Versed) 5 mg STK-MED ONCE .ROUTE ; Start 12/26/16 at 12:19; Stop 12/26/16 at 12:20; Status DC Fentanyl Citrate 250 mcg 250 mcg STK-MED ONCE .ROUTE ; Start 12/26/16 at 12:19; Stop 12/26/16 at 12:20; Status DC Sodium Chloride (Iv Sodium Chloride 0.9% 1000ml Bag) 1,000 ml @ 100 mls/hr Q10H IV Last administered on 12/27/16 01:24; Start 12/26/16 at 15:00; Stop at 10:59; Status DC Lidocaine/Sodium Bicarbonate (Buffered Lidocaine 1%) 20 ml 1X ONCE IJ Last administered on 12/26/16 13:08; Start 12/26/16 at 12:45; Stop 12/26/16 at 12:46 ; Status DC Midazolam HCl (Versed) 5 mg 1X ONCE IV Last administered on 12/26/16 13:09; Start 12/26/16 at 12:45; Stop 12/26/16 at 12:46; Status DC Fentanyl Citrate (Fentanyl 5ml Vial) 250 mcg 1X ONCE IV Last administered on 13:08; Start 12/26/16 at 12:45; Stop 12/26/16 at 12:46; Status DC Iohexol (Omnipaque 300 Mg/ml) 100 ml 1X ONCE IART Last administered on 12:45; Start 12/26/16 at 12:45; Stop 12/26/16 at 12:46; Status DC Naloxone HCl (Narcan) 0.4 mg STK-MED ONCE .ROUTE ; Start 12/27/16 at 09:27; Stop 12/27/16 at 09:28; Status DC Flumazenil (Romazicon) 0.5 mg STK-MED ONCE IV ; Start 12/27/16 at 09:27; Stop at 09:28; Status DC Fentanyl Citrate (Fentanyl 2ml Vial) 100 mcg STK-MED ONCE .ROUTE ; Start at 09:27; Stop 12/27/16 at 09:28; Status DC Midazolam HCl (Versed) 2 mg STK-MED ONCE .ROUTE ; Start 12/27/16 at 09:27; Stop 12/27/16 at 09:28; Status DC Lidocaine/Sodium Bicarbonate (Buffered Lidocaine 1%) 20 ml STK-MED ONCE IJ ; Start 12/27/16 at 09:37; Stop 12/27/16 at 09:38; Status DC Lidocaine/Sodium Bicarbonate (Buffered Lidocaine 1%) 5 ml 1X ONCE IJ Last administered on 12/27/16 10:00; Start 12/27/16 at 10:00; Stop 12/27/16 at 10:01 ; Status DC Midazolam HCl (Versed) 1 mg 1X ONCE IV Last administered on 12/27/16 10:00; Start 12/27/16 at 10:00; Stop 12/27/16 at 10:01; Status DC Fentanyl Citrate (Fentanyl 2ml Vial) 50 mcg 1X ONCE IV Last administered on 10:00; Start 12/27/16 at 10:00; Stop 12/27/16 at 10:01; Status DC Active Scripts Active Reported Cyclobenzaprine Hcl 10 Mg Tablet Omeprazole 20 Mg Capsule.dr Celecoxib 200 Mg Capsule Hydrocodone-Apap 5-300 (Hydrocodone Bit/Acetaminophen) 1 Each Tablet Losartan-Hctz 50-12.5 Mg Tab (Losartan/Hydrochlorothiazide) 1 Each Tablet Novolog Flexpen (Insulin Aspart) 100 Unit/1 Ml Insuln.pen 15 Unit SQ 1X Vitals/I & O Vital Sign - Last 24 Hours 12/26/16 12/26/16 12/26/16 12/26/16 12:34 12:41 12:52 12:56 Pulse 95 94 90 91 Resp 16 16 16 16 Pulse Ox 97 89 89 99 O2 Delivery Room Air Nasal Cannula Nasal Cannula Nasal Cannula O2 Flow Rate 4.0 4.0 4.0 12/26/16 12/26/16 12/26/16 12/26/16 13:02 13:08 13:10 13:20 Pulse 91 91 93 Resp 16 16 16 20 B/P 128/86 Pulse Ox 99 97 97 O2 Delivery Nasal Cannula Nasal Cannula Nasal Cannula Nasal Cannula O2 Flow Rate 4.0 4.0 4.0 2.0 12/26/16 12/26/16 12/26/16 12/26/16 13:40 15:00 15:15 15:30 Temp 97.7 97.7 Pulse 90 88 87 Resp 18 18 B/P 133/87 129/84 131/91 140/81 O2 Delivery Nasal Cannula Nasal Cannula O2 Flow Rate 2.0 2.0 12/26/16 12/26/16 12/26/16 12/26/16 16:00 16:30 17:00 18:00 Temp 98.0 97.6 98.1 98.0 97.6 98.1 Pulse 80 84 84 Resp 18 B/P 130/76 133/78 139/80 138/81 Pulse Ox 98 97 O2 Delivery Nasal Cannula Nasal Cannula Nasal Cannula O2 Flow Rate 2.0 2.0 12/26/16 12/26/16 12/26/16 12/26/16 19:00 20:00 20:00 23:00 Temp 99.2 100.1 99.7 99.2 100.1 99.7 Pulse 115 111 109 Resp 18 18 B/P 123/76 118/81 122/88 Pulse Ox 93 95 96 O2 Delivery Room Air Nasal Cannula Nasal Cannula Nasal Cannula O2 Flow Rate 2.0 2.0 2.0 12/27/16 12/27/16 12/27/16 12/27/16 03:00 07:15 08:00 09:41 Temp 99.0 99.1 99.0 99.1 Pulse 102 99 14 Resp 18 18 14 B/P 130/92 121/59 Pulse Ox 96 93 92 O2 Delivery Nasal Cannula Room Air Room Air Room Air O2 Flow Rate 2.0 12/27/16 12/27/16 12/27/16 12/27/16 09:42 09:42 09:46 09:56 Pulse 14 14 14 92 Resp 14 14 14 14 Pulse Ox 92 92 92 92 O2 Delivery Nasal Cannula Nasal Cannula Nasal Cannula Nasal Cannula O2 Flow Rate 4.0 4.0 4.0 4.0 12/27/16 12/27/16 12/27/16 12/27/16 10:00 10:26 10:40 10:55 Pulse 83 83 86 Resp 14 18 B/P 145/94 141/87 139/86 Pulse Ox 93 98 O2 Delivery Nasal Cannula Nasal Cannula O2 Flow Rate 4.0 2.0 12/27/16 11:10 Pulse 73 B/P 145/86 Intake and Output 12/26/16 12/26/16 12/27/16 15:00 23:00 07:00 Intake Total 280 ml Output Total 250 ml 150 ml 500 ml Balance -250 ml 130 ml -500 ml JEN THAYER K III DO Dec 27, 2016 12:18
--- NOTE | 2016-12-27 12:22 | RAD ---
AP chest, inspiration and expiration views, 12/27/2016, 12:02 PM: History: Follow-up chest tube insertion Comparison is made to the study of earlier the same day. A pigtail pleural drain has been placed on the left with evacuation of the previously seen pneumothorax. No significant residual pneumothorax is evident. A mass with adjacent infiltrate is again noted in the left parahilar region. There is mild streaky atelectasis and/or scarring in the right parahilar region. No significant pleural fluid is seen. IMPRESSION: Resolution of the left pneumothorax status post pleural drain placement.
[2016-12-27] MEDS: INSULIN DETEMIR 300 UNITS/3 ML INSULN.PEN. SQ SCH (12:48)
[2016-12-27] MEDS: HYDROCODONE/APAP 5/325MG TABLET. PO PRN ×2 (12:54→21:11)
--- NOTE | 2016-12-27 12:57 | PDOC ---
PULMONARY PROGRESS NOTES Subjective developed PTX post lung biopsy s/p left chest tube Vitals Vital Signs Date Time Temp Pulse Resp B/P Pulse Ox O2 Delivery O2 Flow Rate FiO2 12/27/16 11:55 78 153/81 12/27/16 10:26 18 98 Nasal Cannula 2.0 12/27/16 07:15 99.1 99.1 General: Alert, No acute distress Lungs: Other (decrease bs) Cardiovascular: S1 Abdomen: Soft Neuro Exam: Alert Extremities: No Edema Skin: Warm Labs Laboratory Tests Test 12/25/16 15:15 12/25/16 16:59 12/25/16 20:48 12/26/16 03:40 Prothrombin Time 13.4SEC (11.7-14.0) Prothromb Time International Ratio 1.1 (0.8-1.1) Glucose (Fingerstick) 185mg/dL (70-99) 174mg/dL (70-99) Sodium Level 140mmol/L (136-145) Potassium Level 4.2mmol/L (3.5-5.1) Chloride Level 106mmol/L (98-107) Carbon Dioxide Level 22mmol/L (21-32) Anion Gap 12 (6-14) Blood Urea Nitrogen 20mg/dL (8-26) Creatinine 1.4mg/dL (0.7-1.3) Estimated GFR (Cockcroft-Gault) 59.2 Glucose Level 170mg/dL (70-99) Calcium Level 9.0mg/dL (8.5-10.1) Phosphorus Level 3.5mg/dL (2.6-4.7) Magnesium Level 1.7mg/dL (1.8-2.4) Albumin 2.7g/dL (3.4-5.0) Test 12/26/16 07:52 12/26/16 11:05 12/26/16 16:23 12/26/16 20:46 Glucose (Fingerstick) 196mg/dL (70-99) 239mg/dL (70-99) 236mg/dL (70-99) 233mg/dL (70-99) Test 12/27/16 06:20 12/27/16 07:15 12/27/16 11:12 White Blood Count 4.5x10^3/uL (4.0-11.0) Red Blood Count 4.16x10^6/uL (4.30-5.70) Hemoglobin 11.4g/dL (13.0-17.5) Hematocrit 34.8% (39.0-53.0) Mean Corpuscular Volume 84fL (79-100) Mean Corpuscular Hemoglobin 28pg (25-35) Mean Corpuscular Hemoglobin Concent 33g/dL (31-37) Red Cell Distribution Width 14.3% (11.5-14.5) Platelet Count 103x10^3/uL (140-400) Neutrophils (%) (Auto) 68% (31-73) Lymphocytes (%) (Auto) 23% (24-48) Monocytes (%) (Auto) 7% (0-9) Eosinophils (%) (Auto) 2% (0-3) Basophils (%) (Auto) 0% (0-3) Neutrophils # (Auto) 3.1x10^3uL (1.8-7.7) Lymphocytes # (Auto) 1.1x10^3/uL (1.0-4.8) Monocytes # (Auto) 0.3x10^3/uL (0.0-1.1) Eosinophils # (Auto) 0.1x10^3/uL (0.0-0.7) Basophils # (Auto) 0.0x10^3/uL (0.0-0.2) Sodium Level 139mmol/L (136-145) Potassium Level 4.7mmol/L (3.5-5.1) Chloride Level 106mmol/L (98-107) Carbon Dioxide Level 25mmol/L (21-32) Anion Gap 8 (6-14) Blood Urea Nitrogen 12mg/dL (8-26) Creatinine 1.3mg/dL (0.7-1.3) Estimated GFR (Cockcroft-Gault) 64.4 Glucose Level 149mg/dL (70-99) Calcium Level 9.0mg/dL (8.5-10.1) Phosphorus Level 3.2mg/dL (2.6-4.7) Magnesium Level 1.8mg/dL (1.8-2.4) Albumin 2.7g/dL (3.4-5.0) Glucose (Fingerstick) 145mg/dL (70-99) 135mg/dL (70-99) Laboratory Tests Test 12/26/16 16:23 12/26/16 20:46 12/27/16 06:20 12/27/16 07:15 Glucose (Fingerstick) 236mg/dL (70-99) 233mg/dL (70-99) 145mg/dL (70-99) White Blood Count 4.5x10^3/uL (4.0-11.0) Red Blood Count 4.16x10^6/uL (4.30-5.70) Hemoglobin 11.4g/dL (13.0-17.5) Hematocrit 34.8% (39.0-53.0) Mean Corpuscular Volume 84fL (79-100) Mean Corpuscular Hemoglobin 28pg (25-35) Mean Corpuscular Hemoglobin Concent 33g/dL (31-37) Red Cell Distribution Width 14.3% (11.5-14.5) Platelet Count 103x10^3/uL (140-400) Neutrophils (%) (Auto) 68% (31-73) Lymphocytes (%) (Auto) 23% (24-48) Monocytes (%) (Auto) 7% (0-9) Eosinophils (%) (Auto) 2% (0-3) Basophils (%) (Auto) 0% (0-3) Neutrophils # (Auto) 3.1x10^3uL (1.8-7.7) Lymphocytes # (Auto) 1.1x10^3/uL (1.0-4.8) Monocytes # (Auto) 0.3x10^3/uL (0.0-1.1) Eosinophils # (Auto) 0.1x10^3/uL (0.0-0.7) Basophils # (Auto) 0.0x10^3/uL (0.0-0.2) Sodium Level 139mmol/L (136-145) Potassium Level 4.7mmol/L (3.5-5.1) Chloride Level 106mmol/L (98-107) Carbon Dioxide Level 25mmol/L (21-32) Anion Gap 8 (6-14) Blood Urea Nitrogen 12mg/dL (8-26) Creatinine 1.3mg/dL (0.7-1.3) Estimated GFR (Cockcroft-Gault) 64.4 Glucose Level 149mg/dL (70-99) Calcium Level 9.0mg/dL (8.5-10.1) Phosphorus Level 3.2mg/dL (2.6-4.7) Magnesium Level 1.8mg/dL (1.8-2.4) Albumin 2.7g/dL (3.4-5.0) Test 12/27/16 11:12 Glucose (Fingerstick) 135mg/dL (70-99) Medications Active Scripts Medications Dose Route/Sig Days Date Category Cyclobenzaprine Hcl 10 Mg Tablet 12/24/16 Reported Omeprazole 20 Mg Capsule.dr 12/24/16 Reported Celecoxib 200 Mg Capsule 12/24/16 Reported Hydrocodone-Apap 5-300 (Hydrocodone Bit/Acetaminophen) 1 Each Tablet 12/24/16 Reported Losartan-Hctz 50-12.5 Mg Tab (Losartan/Hydrochlorothiazide) 1 Each Tablet 12/24/16 Reported Novolog Flexpen (Insulin Aspart) 100 Unit/1 Ml Insuln.pen 15 Unit SQ 1X 12/24/16 Reported Impression . 1. A 4.4 cm left lower lobe mass in the patient, who is an ex-smoker. He smoked for 30 years. He has lost about 20 pounds in the last [address] chest findings are highly concerning for a bronchogenic cancer. s/p non- diagnostic bronchoscopy. followed bt ct guided left biopsy 12/26 2. Suspected underlying chronic obstructive pulmonary disease. 3. Hyperglycemia, present on admission, currently improved. 4. Acute renal failure present on admission, which is improved with hydration. 5. Moderate protein-calorie malnutrition. 6. PTX post biopsy, resolved with chest tube Plan . 1. Biopsy c/w squamous cell cancer 2. will need staging PET as OP/ may be surgical 3. We will also obtain full PFTs. once chest tube is out 4. f/u CXR daily 5. Continue with present bronchodilators. 6. d/w TELLO Recio MD Dec 27, 2016 12:57
--- NOTE | 2016-12-27 13:10 | PATHOLOGY ---
PATHOLOGY REPORT * * * * * * * * FINAL DIAGNOSIS: Lung tissue, left lung CT-guided biopsy: - SQUAMOUS CELL CARCINOMA, MODERATELY DIFFERENTIATED. SEE COMMENT. - Focal acute and organizing pneumonia. COMMENT: Sections of the left lung mass CT-guided biopsy show extensive replacement of lung parenchyma by a malignant epithelial neoplasm. The malignant cells are present in irregular solid nests within an inflamed reactive desmoplastic stroma. The malignant cells have a polygonal, squamoid appearance with well demarcated cell borders. The malignant cells have ample amounts of pale eosinophilic cytoplasm, and possess enlarged, moderately pleomorphic rounded to ovoid hyperchromatic nuclei containing prominent nucleoli. Tumor cells focally have a more densely eosinophilic keratinized cytoplasm, and there are focal dyskeratotic cells. Mitotic figures are present. There is also a segment of lung parenchyma showing acute and organizing pneumonia. The morphologic findings are supportive of the diagnosis of a moderately differentiated squamous cell carcinoma. The case is also examined by Dr. Miguel Freed, who concurs with the diagnosis. (JPM:; d/t: 12/27/16) REPORT ELECTRONICALLY SIGNED BY: Tobin Boyd M.D. DATE/TIME: 12/27/2016 13:09 * * * * * * * * GROSS PATHOLOGY: The specimen is received in formalin, labeled "Jean Carlos Wheeler and left lung bx." Received is a 0.8 x 0.7 x 0.3 cm aggregate of blood-tinged, white-frederick, rubbery, and irregular soft tissue fragments. The specimen is entirely submitted in cassette A1. (TTL; 12/26/2016) INITIAL CPT CODE(S): A; 99318 Professional services performed by [facility] at [address] [address] Technical services performed by [facility] at [address] [place] [address], [facility] [address] [address]. SPECIMEN(S) RECEIVED: A.Parahilar mass CLINICAL HISTORY: Left hilar/parahilar mass, weigh tloss, previous smoker, abnormal CT, bronch ca PATIENT: JEAN CARLOS WHEELER /AGE: 7 1935 (Age: 81) PATIENT #: [id number] ALT CASE #: SPECIMEN COLLECTION DATE: 12/26/2016 SPECIMEN RECEIVED DATE: 12/26/2016 [facility] - [id number] [address] - PHONE: [phone] * * * END OF REPORT * * *
--- NOTE | 2016-12-27 15:14 | PATHOLOGY ---
CYTOPATHOLOGY REPORT CLINICAL HISTORY: Lung mass. See also [id number]. SPECIMEN(S) RECEIVED: A.Bronchoalveolar lavage, LLL B.Bronchial brushing, LLL C.Bronchial brush rinse, NOS FINAL DIAGNOSIS: A. Left lower lobe bronchoalveolar lavage, ThinPrep: - No malignant cells identified. - Bronchial epithelial cells, few squamous epithelial cells, and few pulmonary macrophages identified. B. Left lower lobe bronchial brushing, smears: - No malignant cells identified. - Reactive bronchial epithelial cells and few pulmonary macrophages identified. C. Bronchial brush rinse, ThinPrep: - No malignant cells identified. - Focally reactive bronchial epithelial cells and few pulmonary macrophages identified. (JPM:csd; d/t: 12/27/2016) PATHOLOGIST: Tobin Boyd M.D. REPORT ELECTRONICALLY SIGNED BY: Tobin Boyd M.D. DATE/TIME: 12/27/2016 15:13 GROSS PATHOLOGY: A. Bronchoalveolar lavage, LLL: The specimen is submitted unfixed, labeled "Jean Carlos Wheeler". Received by the Cytology Department is one mL of clear colorless fluid. One ThinPrep slide was prepared. B. Bronchial brushing, LLL: The specimen is labeled "Jean Carlos Wheeler" and consists of two fixed slides. C. Bronchial brush rinse, NOS: The specimen is labeled "Jean Carlos Colindres" and consists of a brush tip in fixative. One ThinPrep slide was prepared. (clt 12.26.2016) APARTMENT COORDINATOR(S): ELISE Sims([facility]) INITIAL CPT CODE(S): A; 41570 B; 02925 C; 81577 Professional services performed [place] [facility] [place] [address] Technical services performed by [facility] at [address] [place] [address], [address], [place] [address]. PATIENT: JEAN CARLOS WHEELER /AGE: 7 1935 (Age: 81) SEX: M PATIENT #: [id number] ALT CASE #: SPECIMEN COLLECTION DATE: 12/26/2016 SPECIMEN RECEIVED DATE: 12/26/[address] [facility] [address] [place] [address], [address] [place] [address] PHONE: [phone] DIRECTOR: Seng W. Pebbles, M.D. * * * END OF REPORT * * *
[2016-12-27] MEDS: TAMSULOSIN 0.4 MG CAP.ER.24H. PO SCH (21:03)
[2016-12-28 03:00] VITALS: BP 109/68
[2016-12-28 05:22] LABS: BASO % 1 % (0-3); EOS % 3 % (0-3); HEMATOCRIT 34.1 % (39.0-53.0); HEMOGLOBIN 11.3 g/dL (13.0-17.5); LYMPH # 0.9 x10^3/uL (1.0-4.8); LYMPH % 26 % (24-48); MEAN CORPUSCULAR HEMOGLOBIN 28 pg (25-35); MEAN CORPUSCULAR HGB CONC 33 g/dL (31-37); MEAN CORPUSCULAR VOLUME 84 fL (79-100); MONO % 7 % (0-9); NEUT % 63 % (31-73); PLATELET COUNT 108 x10^3/uL (140-400); RED BLOOD COUNT 4.07 x10^6/uL (4.30-5.70); RED CELL DISTRIBUTION WIDTH 14.3 % (11.5-14.5); WHITE BLOOD COUNT 3.3 x10^3/uL (4.0-11.0)
[2016-12-28 05:39] LABS: ALBUMIN 2.4 g/dL (3.4-5.0); CALCIUM 8.9 mg/dL (8.5-10.1); CREATININE 1.2 mg/dL (0.7-1.3); GFR 70.7; PHOSPHORUS 3.1 mg/dL (2.6-4.7); POTASSIUM 3.9 mmol/L (3.5-5.1)
[2016-12-28 07:46] VITALS: BP 115/82
--- NOTE | 2016-12-28 07:57 | RAD ---
Portable chest, 12/28/2016: History: Follow-up chest tube and pneumothorax Comparison is made to yesterday's study. The left-sided pleural drain is unchanged in position. There is no recurrent pneumothorax on the left. The left parahilar mass and associated infiltrate is unchanged. There is moderate developing atelectasis/infiltrate in the right base. The heart size and pulmonary vascularity are normal. No significant pleural fluid is seen. IMPRESSION: 1. No evidence of recurrent pneumothorax. 2. Unchanged left parahilar mass and associated infiltrate. 3. Developing moderate right basilar atelectasis/infiltrate.
[2016-12-28] MEDS: GLYBURIDE 5 MG TABLET PO SCH ×2 (08:12→18:03)
[2016-12-28] MEDS: INSULIN ASPART 300 UNITS/3 ML INSULN.PEN SQ SCH ×6 (08:30→18:10)
[2016-12-28] MEDS: INSULIN DETEMIR 300 UNITS/3 ML INSULN.PEN. SQ SCH (08:32)
--- NOTE | 2016-12-28 10:47 | PDOC ---
PROGRESS NOTES Chief Complaint Chief Complaint Dysphagia ASSESSMENT AND PLAN: 1. Pneumothorax: 12/[address] Casey's help with management of CT. clamped today 2. Lung mass in L hilum: suspected lung CA. seen by med and rad onc. O/P F/ U when bx results available 3. Globus sensation: poss mass effect from lung CA. no mediastinal LAD 4. BERTO: vasomotor etiology. resolved 5. Diabetes Mellitus: new diagnosis. on long and short acting insulin as well as glyburide. stop oral in favor of trajenta 6. Prophylaxis: SCDs 7. Dispo: home post d/c CT (?tomorrow) Vitals Vitals Vital Signs Date Time Temp Pulse Resp B/P Pulse Ox O2 Delivery O2 Flow Rate FiO2 12/28/16 08:00 Nasal Cannula 2.0 12/28/16 07:46 98.7 91 16 115/82 98 98.7 Physical Exam General: Alert, Oriented X3, Cooperative, No acute distress Heart: Regular rate, Normal S1, Normal S2 Lungs: Other (decrease bs) Abdomen: Normal bowel sounds, Soft, No tenderness, No hepatosplenomegaly Extremities: No tenderness/swelling Skin: No rashes Labs LABS Laboratory Tests Test 12/27/16 11:12 12/27/16 16:19 12/28/16 04:31 12/28/16 07:22 Glucose (Fingerstick) 135mg/dL (70-99) 185mg/dL (70-99) 158mg/dL (70-99) White Blood Count 3.3x10^3/uL (4.0-11.0) Red Blood Count 4.07x10^6/uL (4.30-5.70) Hemoglobin 11.3g/dL (13.0-17.5) Hematocrit 34.1% (39.0-53.0) Mean Corpuscular Volume 84fL (79-100) Mean Corpuscular Hemoglobin 28pg (25-35) Mean Corpuscular Hemoglobin Concent 33g/dL (31-37) Red Cell Distribution Width 14.3% (11.5-14.5) Platelet Count 108x10^3/uL (140-400) Neutrophils (%) (Auto) 63% (31-73) Lymphocytes (%) (Auto) 26% (24-48) Monocytes (%) (Auto) 7% (0-9) Eosinophils (%) (Auto) 3% (0-3) Basophils (%) (Auto) 1% (0-3) Neutrophils # (Auto) 2.1x10^3uL (1.8-7.7) Lymphocytes # (Auto) 0.9x10^3/uL (1.0-4.8) Monocytes # (Auto) 0.2x10^3/uL (0.0-1.1) Eosinophils # (Auto) 0.1x10^3/uL (0.0-0.7) Basophils # (Auto) 0.0x10^3/uL (0.0-0.2) Sodium Level 139mmol/L (136-145) Potassium Level 3.9mmol/L (3.5-5.1) Chloride Level 106mmol/L (98-107) Carbon Dioxide Level 24mmol/L (21-32) Anion Gap 9 (6-14) Blood Urea Nitrogen 14mg/dL (8-26) Creatinine 1.2mg/dL (0.7-1.3) Estimated GFR (Cockcroft-Gault) 70.7 Glucose Level 158mg/dL (70-99) Calcium Level 8.9mg/dL (8.5-10.1) Phosphorus Level 3.1mg/dL (2.6-4.7) Magnesium Level 1.7mg/dL (1.8-2.4) Albumin 2.4g/dL (3.4-5.0) Review of Systems Review of Systems feels ok, save for some discomfort from CT MICHELET HERNANDEZ MD Dec 28, 2016 10:47
[2016-12-28 10:54] VITALS: BP 115/77
--- NOTE | 2016-12-28 11:24 | RAD ---
CT-guided left chest tube insertion Indication: Post lung biopsy enlarging left pneumothorax. Pulmonary was contacted. Chest tube insertion was requested. Anesthesia: 18 minutes moderate sedation was provided utilizing a total of 1 mg Versed and 50 mcg fentanyl, IV. The patient was appropriately monitored by a qualified independent observer throughout the time of moderate sedation. Consent: The procedure was explained in its entirety to the patient and/or the patient's designated farm loan representative by a member of the treatment team. This included a discussion of risks and benefits and acceptable alternatives to the procedure, as well as expected consequences of no treatment at all. Discussion of risks included, but was not limited to, those that are most frequent and those that are rare, but possibly severe or life-threatening, as well as the possibility of unforeseen complications. Procedure: Informed consent was obtained from the patient. He was placed supine on the CT scanner. Preliminary noncontrast CT images confirmed the presence of a large postbiopsy left pneumothorax. A skin site suitable for CT-guided chest tube insertion was selected and marked along anterolateral aspect of low left hemithorax. That area was prepped and draped in the usual sterile fashion. Moderate sedation was provided with IV Versed and fentanyl. Using aseptic technique, local anesthesia, and CT guidance, a small micropuncture sheath was successfully introduced into low left lateral pleural space. The micropuncture sheath was removed over a guidewire. The percutaneous tract was dilated and a 12 Maltese locking pigtail left chest tube was easily introduced. Completion CT images documented satisfactory position of the chest tube, which was connected to Pleur-evac, and was secured at the skin exit site utilizing suture and sterile dressing. Patient tolerated the procedure well without apparent complication. Impression: Successful, uneventful CT-guided left chest tube insertion, as described. PQRS Compliance Statement: One or more of the following individualized dose reduction techniques was utilized for this procedure: 1. Automated exposure control. 2. Adjustment of MA and/or KV according to patient size. 3. Iterative reconstruction technique.
--- NOTE | 2016-12-28 14:08 | PDOC ---
PULMONARY PROGRESS NOTES Subjective developed PTX post lung biopsy s/p left chest tube, PTX resolved Vitals Vital Signs Date Time Temp Pulse Resp B/P Pulse Ox O2 Delivery O2 Flow Rate FiO2 12/28/16 10:54 97.9 94 18 115/77 97 Nasal Cannula 2.0 97.9 General: Alert, No acute distress Lungs: Other (decrease bs) Cardiovascular: S1 Abdomen: Soft Neuro Exam: Alert Extremities: No Edema Skin: Warm Labs Laboratory Tests Test 12/26/16 16:23 12/26/16 20:46 12/27/16 06:20 12/27/16 07:15 Glucose (Fingerstick) 236mg/dL (70-99) 233mg/dL (70-99) 145mg/dL (70-99) White Blood Count 4.5x10^3/uL (4.0-11.0) Red Blood Count 4.16x10^6/uL (4.30-5.70) Hemoglobin 11.4g/dL (13.0-17.5) Hematocrit 34.8% (39.0-53.0) Mean Corpuscular Volume 84fL (79-100) Mean Corpuscular Hemoglobin 28pg (25-35) Mean Corpuscular Hemoglobin Concent 33g/dL (31-37) Red Cell Distribution Width 14.3% (11.5-14.5) Platelet Count 103x10^3/uL (140-400) Neutrophils (%) (Auto) 68% (31-73) Lymphocytes (%) (Auto) 23% (24-48) Monocytes (%) (Auto) 7% (0-9) Eosinophils (%) (Auto) 2% (0-3) Basophils (%) (Auto) 0% (0-3) Neutrophils # (Auto) 3.1x10^3uL (1.8-7.7) Lymphocytes # (Auto) 1.1x10^3/uL (1.0-4.8) Monocytes # (Auto) 0.3x10^3/uL (0.0-1.1) Eosinophils # (Auto) 0.1x10^3/uL (0.0-0.7) Basophils # (Auto) 0.0x10^3/uL (0.0-0.2) Sodium Level 139mmol/L (136-145) Potassium Level 4.7mmol/L (3.5-5.1) Chloride Level 106mmol/L (98-107) Carbon Dioxide Level 25mmol/L (21-32) Anion Gap 8 (6-14) Blood Urea Nitrogen 12mg/dL (8-26) Creatinine 1.3mg/dL (0.7-1.3) Estimated GFR (Cockcroft-Gault) 64.4 Glucose Level 149mg/dL (70-99) Calcium Level 9.0mg/dL (8.5-10.1) Phosphorus Level 3.2mg/dL (2.6-4.7) Magnesium Level 1.8mg/dL (1.8-2.4) Albumin 2.7g/dL (3.4-5.0) Test 12/27/16 11:12 12/27/16 16:19 12/28/16 04:31 12/28/16 07:22 Glucose (Fingerstick) 135mg/dL (70-99) 185mg/dL (70-99) 158mg/dL (70-99) White Blood Count 3.3x10^3/uL (4.0-11.0) Red Blood Count 4.07x10^6/uL (4.30-5.70) Hemoglobin 11.3g/dL (13.0-17.5) Hematocrit 34.1% (39.0-53.0) Mean Corpuscular Volume 84fL (79-100) Mean Corpuscular Hemoglobin 28pg (25-35) Mean Corpuscular Hemoglobin Concent 33g/dL (31-37) Red Cell Distribution Width 14.3% (11.5-14.5) Platelet Count 108x10^3/uL (140-400) Neutrophils (%) (Auto) 63% (31-73) Lymphocytes (%) (Auto) 26% (24-48) Monocytes (%) (Auto) 7% (0-9) Eosinophils (%) (Auto) 3% (0-3) Basophils (%) (Auto) 1% (0-3) Neutrophils # (Auto) 2.1x10^3uL (1.8-7.7) Lymphocytes # (Auto) 0.9x10^3/uL (1.0-4.8) Monocytes # (Auto) 0.2x10^3/uL (0.0-1.1) Eosinophils # (Auto) 0.1x10^3/uL (0.0-0.7) Basophils # (Auto) 0.0x10^3/uL (0.0-0.2) Sodium Level 139mmol/L (136-145) Potassium Level 3.9mmol/L (3.5-5.1) Chloride Level 106mmol/L (98-107) Carbon Dioxide Level 24mmol/L (21-32) Anion Gap 9 (6-14) Blood Urea Nitrogen 14mg/dL (8-26) Creatinine 1.2mg/dL (0.7-1.3) Estimated GFR (Cockcroft-Gault) 70.7 Glucose Level 158mg/dL (70-99) Calcium Level 8.9mg/dL (8.5-10.1) Phosphorus Level 3.1mg/dL (2.6-4.7) Magnesium Level 1.7mg/dL (1.8-2.4) Albumin 2.4g/dL (3.4-5.0) Test 12/28/16 10:20 Glucose (Fingerstick) 136mg/dL (70-99) Laboratory Tests Test 12/27/16 16:19 12/28/16 04:31 12/28/16 07:22 12/28/16 10:20 Glucose (Fingerstick) 185mg/dL (70-99) 158mg/dL (70-99) 136mg/dL (70-99) White Blood Count 3.3x10^3/uL (4.0-11.0) Red Blood Count 4.07x10^6/uL (4.30-5.70) Hemoglobin 11.3g/dL (13.0-17.5) Hematocrit 34.1% (39.0-53.0) Mean Corpuscular Volume 84fL (79-100) Mean Corpuscular Hemoglobin 28pg (25-35) Mean Corpuscular Hemoglobin Concent 33g/dL (31-37) Red Cell Distribution Width 14.3% (11.5-14.5) Platelet Count 108x10^3/uL (140-400) Neutrophils (%) (Auto) 63% (31-73) Lymphocytes (%) (Auto) 26% (24-48) Monocytes (%) (Auto) 7% (0-9) Eosinophils (%) (Auto) 3% (0-3) Basophils (%) (Auto) 1% (0-3) Neutrophils # (Auto) 2.1x10^3uL (1.8-7.7) Lymphocytes # (Auto) 0.9x10^3/uL (1.0-4.8) Monocytes # (Auto) 0.2x10^3/uL (0.0-1.1) Eosinophils # (Auto) 0.1x10^3/uL (0.0-0.7) Basophils # (Auto) 0.0x10^3/uL (0.0-0.2) Sodium Level 139mmol/L (136-145) Potassium Level 3.9mmol/L (3.5-5.1) Chloride Level 106mmol/L (98-107) Carbon Dioxide Level 24mmol/L (21-32) Anion Gap 9 (6-14) Blood Urea Nitrogen 14mg/dL (8-26) Creatinine 1.2mg/dL (0.7-1.3) Estimated GFR (Cockcroft-Gault) 70.7 Glucose Level 158mg/dL (70-99) Calcium Level 8.9mg/dL (8.5-10.1) Phosphorus Level 3.1mg/dL (2.6-4.7) Magnesium Level 1.7mg/dL (1.8-2.4) Albumin 2.4g/dL (3.4-5.0) Medications Active Scripts Medications Dose Route/Sig Days Date Category Cyclobenzaprine Hcl 10 Mg Tablet 12/24/16 Reported Omeprazole 20 Mg Capsule.dr 12/24/16 Reported Celecoxib 200 Mg Capsule 12/24/16 Reported Hydrocodone-Apap 5-300 (Hydrocodone Bit/Acetaminophen) 1 Each Tablet 12/24/16 Reported Losartan-Hctz 50-12.5 Mg Tab (Losartan/Hydrochlorothiazide) 1 Each Tablet 12/24/16 Reported Novolog Flexpen (Insulin Aspart) 100 Unit/1 Ml Insuln.pen 15 Unit SQ 1X 12/24/16 Reported Impression . 1. A 4.4 cm left lower lobe mass in the patient, who is an ex-smoker. He smoked for 30 years. He has lost about 20 pounds in the last 2 weeks. s/p non- diagnostic bronchoscopy. followed by ct guided left mass biopsy 12/26, preliminary path c/ w sq cell cancer 2. Suspected underlying chronic obstructive pulmonary disease. 3. Hyperglycemia, present on admission, currently improved. 4. Acute renal failure present on admission, which is improved with hydration. 5. Moderate protein-calorie malnutrition. 6. PTX post biopsy, resolved with chest tube Plan . 1. Biopsy c/w squamous cell cancer 2. will need staging PET and PFT as OP/, may be a surgical candidate 3. clamp chest tube today and If no PTX in am, remove chest tube in am 4. f/u CXR daily 5. Continue with present bronchodilators. 6. d/w PCP TELLO BLANCO MD Dec 28, 2016 14:08
[2016-12-28 15:22] VITALS: BP 89/57
[2016-12-28 19:00] VITALS: BP 126/75
[2016-12-28] MEDS: TAMSULOSIN 0.4 MG CAP.ER.24H. PO SCH (21:10)
[2016-12-28 23:00] VITALS: BP 136/82
[2016-12-29 03:00] VITALS: BP 102/65
[2016-12-29 05:22] LABS: BASO % 0 % (0-3); EOS % 3 % (0-3); HEMATOCRIT 34.5 % (39.0-53.0); HEMOGLOBIN 11.4 g/dL (13.0-17.5); LYMPH # 0.7 x10^3/uL (1.0-4.8); LYMPH % 21 % (24-48); MEAN CORPUSCULAR HEMOGLOBIN 27 pg (25-35); MEAN CORPUSCULAR HGB CONC 33 g/dL (31-37); MEAN CORPUSCULAR VOLUME 82 fL (79-100); MONO % 8 % (0-9); NEUT % 68 % (31-73); PLATELET COUNT 136 x10^3/uL (140-400); RED BLOOD COUNT 4.19 x10^6/uL (4.30-5.70); RED CELL DISTRIBUTION WIDTH 14.1 % (11.5-14.5); WHITE BLOOD COUNT 3.6 x10^3/uL (4.0-11.0)
[2016-12-29 05:39] LABS: ALBUMIN 2.5 g/dL (3.4-5.0); CREATININE 1.3 mg/dL (0.7-1.3); GFR 64.4; PHOSPHORUS 2.9 mg/dL (2.6-4.7); POTASSIUM 4.4 mmol/L (3.5-5.1)
[2016-12-29 07:00] VITALS: BP 112/71
[2016-12-29] MEDS: LINAGLIPTIN 5 MG TABLET PO SCH (08:22)
--- NOTE | 2016-12-29 08:28 | PDOC ---
PULMONARY PROGRESS NOTES Subjective developed PTX post lung biopsy s/p left chest tube, PTX resolved Vitals Vital Signs Date Time Temp Pulse Resp B/P Pulse Ox O2 Delivery O2 Flow Rate FiO2 12/29/16 03:00 97.9 92 20 102/65 99 Nasal Cannula 2.0 97.9 General: Alert, No acute distress Lungs: Other (decrease bs) Cardiovascular: S1 Abdomen: Soft Neuro Exam: Alert Extremities: No Edema Skin: Warm Labs Laboratory Tests Test 12/27/16 11:12 12/27/16 16:19 12/28/16 04:31 12/28/16 07:22 Glucose (Fingerstick) 135mg/dL (70-99) 185mg/dL (70-99) 158mg/dL (70-99) White Blood Count 3.3x10^3/uL (4.0-11.0) Red Blood Count 4.07x10^6/uL (4.30-5.70) Hemoglobin 11.3g/dL (13.0-17.5) Hematocrit 34.1% (39.0-53.0) Mean Corpuscular Volume 84fL (79-100) Mean Corpuscular Hemoglobin 28pg (25-35) Mean Corpuscular Hemoglobin Concent 33g/dL (31-37) Red Cell Distribution Width 14.3% (11.5-14.5) Platelet Count 108x10^3/uL (140-400) Neutrophils (%) (Auto) 63% (31-73) Lymphocytes (%) (Auto) 26% (24-48) Monocytes (%) (Auto) 7% (0-9) Eosinophils (%) (Auto) 3% (0-3) Basophils (%) (Auto) 1% (0-3) Neutrophils # (Auto) 2.1x10^3uL (1.8-7.7) Lymphocytes # (Auto) 0.9x10^3/uL (1.0-4.8) Monocytes # (Auto) 0.2x10^3/uL (0.0-1.1) Eosinophils # (Auto) 0.1x10^3/uL (0.0-0.7) Basophils # (Auto) 0.0x10^3/uL (0.0-0.2) Sodium Level 139mmol/L (136-145) Potassium Level 3.9mmol/L (3.5-5.1) Chloride Level 106mmol/L (98-107) Carbon Dioxide Level 24mmol/L (21-32) Anion Gap 9 (6-14) Blood Urea Nitrogen 14mg/dL (8-26) Creatinine 1.2mg/dL (0.7-1.3) Estimated GFR (Cockcroft-Gault) 70.7 Glucose Level 158mg/dL (70-99) Calcium Level 8.9mg/dL (8.5-10.1) Phosphorus Level 3.1mg/dL (2.6-4.7) Magnesium Level 1.7mg/dL (1.8-2.4) Albumin 2.4g/dL (3.4-5.0) Test 12/28/16 10:20 12/28/16 16:58 12/28/16 21:12 12/29/16 04:41 Glucose (Fingerstick) 136mg/dL (70-99) 199mg/dL (70-99) 165mg/dL (70-99) White Blood Count 3.6x10^3/uL (4.0-11.0) Red Blood Count 4.19x10^6/uL (4.30-5.70) Hemoglobin 11.4g/dL (13.0-17.5) Hematocrit 34.5% (39.0-53.0) Mean Corpuscular Volume 82fL (79-100) Mean Corpuscular Hemoglobin 27pg (25-35) Mean Corpuscular Hemoglobin Concent 33g/dL (31-37) Red Cell Distribution Width 14.1% (11.5-14.5) Platelet Count 136x10^3/uL (140-400) Neutrophils (%) (Auto) 68% (31-73) Lymphocytes (%) (Auto) 21% (24-48) Monocytes (%) (Auto) 8% (0-9) Eosinophils (%) (Auto) 3% (0-3) Basophils (%) (Auto) 0% (0-3) Neutrophils # (Auto) 2.4x10^3uL (1.8-7.7) Lymphocytes # (Auto) 0.7x10^3/uL (1.0-4.8) Monocytes # (Auto) 0.3x10^3/uL (0.0-1.1) Eosinophils # (Auto) 0.1x10^3/uL (0.0-0.7) Basophils # (Auto) 0.0x10^3/uL (0.0-0.2) Test 12/29/16 04:45 12/29/16 07:36 Sodium Level 139mmol/L (136-145) Potassium Level 4.4mmol/L (3.5-5.1) Chloride Level 106mmol/L (98-107) Carbon Dioxide Level 27mmol/L (21-32) Anion Gap 6 (6-14) Blood Urea Nitrogen 15mg/dL (8-26) Creatinine 1.3mg/dL (0.7-1.3) Estimated GFR (Cockcroft-Gault) 64.4 Glucose Level 163mg/dL (70-99) Calcium Level 9.0mg/dL (8.5-10.1) Phosphorus Level 2.9mg/dL (2.6-4.7) Magnesium Level 1.7mg/dL (1.8-2.4) Albumin 2.5g/dL (3.4-5.0) Glucose (Fingerstick) 183mg/dL (70-99) Laboratory Tests Test 12/28/16 10:20 12/28/16 16:58 12/28/16 21:12 12/29/16 04:41 Glucose (Fingerstick) 136mg/dL (70-99) 199mg/dL (70-99) 165mg/dL (70-99) White Blood Count 3.6x10^3/uL (4.0-11.0) Red Blood Count 4.19x10^6/uL (4.30-5.70) Hemoglobin 11.4g/dL (13.0-17.5) Hematocrit 34.5% (39.0-53.0) Mean Corpuscular Volume 82fL (79-100) Mean Corpuscular Hemoglobin 27pg (25-35) Mean Corpuscular Hemoglobin Concent 33g/dL (31-37) Red Cell Distribution Width 14.1% (11.5-14.5) Platelet Count 136x10^3/uL (140-400) Neutrophils (%) (Auto) 68% (31-73) Lymphocytes (%) (Auto) 21% (24-48) Monocytes (%) (Auto) 8% (0-9) Eosinophils (%) (Auto) 3% (0-3) Basophils (%) (Auto) 0% (0-3) Neutrophils # (Auto) 2.4x10^3uL (1.8-7.7) Lymphocytes # (Auto) 0.7x10^3/uL (1.0-4.8) Monocytes # (Auto) 0.3x10^3/uL (0.0-1.1) Eosinophils # (Auto) 0.1x10^3/uL (0.0-0.7) Basophils # (Auto) 0.0x10^3/uL (0.0-0.2) Test 12/29/16 04:45 12/29/16 07:36 Sodium Level 139mmol/L (136-145) Potassium Level 4.4mmol/L (3.5-5.1) Chloride Level 106mmol/L (98-107) Carbon Dioxide Level 27mmol/L (21-32) Anion Gap 6 (6-14) Blood Urea Nitrogen 15mg/dL (8-26) Creatinine 1.3mg/dL (0.7-1.3) Estimated GFR (Cockcroft-Gault) 64.4 Glucose Level 163mg/dL (70-99) Calcium Level 9.0mg/dL (8.5-10.1) Phosphorus Level 2.9mg/dL (2.6-4.7) Magnesium Level 1.7mg/dL (1.8-2.4) Albumin 2.5g/dL (3.4-5.0) Glucose (Fingerstick) 183mg/dL (70-99) Medications Active Scripts Medications Dose Route/Sig Days Date Category Cyclobenzaprine Hcl 10 Mg Tablet 12/24/16 Reported Omeprazole 20 Mg Capsule. 12/24/16 Reported Celecoxib 200 Mg Capsule 12/24/16 Reported Hydrocodone-Apap 5-300 (Hydrocodone Bit/Acetaminophen) 1 Each Tablet 12/24/16 Reported Losartan-Hctz 50-12.5 Mg Tab (Losartan/Hydrochlorothiazide) 1 Each Tablet 12/24/16 Reported Novolog Flexpen (Insulin Aspart) 100 Unit/1 Ml Insuln.pen 15 Unit SQ 1X 12/24/16 Reported Impression . 1. A 4.4 cm left lower lobe mass in the patient, who is an ex-smoker. He smoked for 30 years. He has lost about 20 pounds in the last 2 weeks. s/p non- diagnostic bronchoscopy. followed by ct guided left mass biopsy 12/26, preliminary path c/ w sq cell cancer 2. Suspected underlying chronic obstructive pulmonary disease. 3. Hyperglycemia, present on admission, currently improved. 4. Acute renal failure present on admission, which is improved with hydration. 5. Moderate protein-calorie malnutrition. 6. PTX post biopsy, resolved with chest tube Plan . 1. Biopsy c/w squamous cell cancer 2. will need staging PET and PFT as OP/, may be a surgical candidate 3. No PTX post clamp chest tube for 24 hrs. will remove chest tube today 4. f/u CXR in am 5. Continue with present bronchodilators. 6. home in TELLO BLANCO MD Dec 29, 2016 08:28
[2016-12-29] MEDS: INSULIN ASPART 300 UNITS/3 ML INSULN.PEN SQ SCH ×6 (08:37→18:08)
[2016-12-29] MEDS: INSULIN DETEMIR 300 UNITS/3 ML INSULN.PEN. SQ SCH (08:38)
--- NOTE | 2016-12-29 09:14 | RAD ---
Portable chest, 12/29/2016: History: Follow-up chest tube, prior pneumothorax Comparison is made yesterday study. The left chest tube is unchanged in position. There is no evidence of recurrent pneumothorax. There is a persistent left parahilar mass. Adjacent atelectasis/infiltrate has improved slightly. Moderate right basilar atelectasis/infiltrate persists. Blunting of the right lateral costophrenic angle raises possibility of a small amount of right-sided pleural fluid. IMPRESSION: 1. No evidence of recurrent pneumothorax. 2. Atelectasis/infiltrate associated with the left parahilar mass has improved slightly. 3. Ongoing moderate right basilar atelectasis/infiltrate with probable development of a small amount of right-sided pleural fluid.
[2016-12-29 11:00] VITALS: BP 125/66
[2016-12-29 15:00] VITALS: BP 113/71
[2016-12-29 19:00] VITALS: BP 116/68
[2016-12-29] MEDS: TAMSULOSIN 0.4 MG CAP.ER.24H. PO SCH (20:47)
[2016-12-29] MEDS ORDERED: SIMETHICONE 80 MG TAB.CHEW PO PRN (22:45)
[2016-12-29 23:00] VITALS: BP 125/81
--- NOTE | 2016-12-29 23:27 | PDOC ---
PROGRESS NOTES Chief Complaint Chief Complaint Dysphagia ASSESSMENT AND PLAN: 1. Pneumothorax: 12/[address] Casey's help with management of CT. d/c.ed today. recheck CXR in AM 2. 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 seen by med and rad onc. O/P F/U 3. Globus sensation: poss mass effect from lung CA. no mediastinal LAD 4. BERTO: vasomotor etiology. resolved 5. Diabetes Mellitus: new diagnosis. on long and short acting insulin as well as tradjenta. will need scripts 6. Prophylaxis: SCDs 7. Dispo: home prob in AM Vitals Vitals Vital Signs Date Time Temp Pulse Resp B/P Pulse Ox O2 Delivery O2 Flow Rate FiO2 12/29/16 20:00 Nasal Cannula 2.0 12/29/16 19:00 98.8 100 20 116/68 95 98.8 Physical Exam General: Alert, Oriented X3, Cooperative, No acute distress Heart: Regular rate, Normal S1, Normal S2 Lungs: Other (decrease bs) Abdomen: Normal bowel sounds, Soft, No tenderness, No hepatosplenomegaly Extremities: No tenderness/swelling Skin: No rashes Labs LABS Laboratory Tests Test 12/29/16 04:41 12/29/16 04:45 12/29/16 07:36 12/29/16 11:23 White Blood Count 3.6x10^3/uL (4.0-11.0) Red Blood Count 4.19x10^6/uL (4.30-5.70) Hemoglobin 11.4g/dL (13.0-17.5) Hematocrit 34.5% (39.0-53.0) Mean Corpuscular Volume 82fL (79-100) Mean Corpuscular Hemoglobin 27pg (25-35) Mean Corpuscular Hemoglobin Concent 33g/dL (31-37) Red Cell Distribution Width 14.1% (11.5-14.5) Platelet Count 136x10^3/uL (140-400) Neutrophils (%) (Auto) 68% (31-73) Lymphocytes (%) (Auto) 21% (24-48) Monocytes (%) (Auto) 8% (0-9) Eosinophils (%) (Auto) 3% (0-3) Basophils (%) (Auto) 0% (0-3) Neutrophils # (Auto) 2.4x10^3uL (1.8-7.7) Lymphocytes # (Auto) 0.7x10^3/uL (1.0-4.8) Monocytes # (Auto) 0.3x10^3/uL (0.0-1.1) Eosinophils # (Auto) 0.1x10^3/uL (0.0-0.7) Basophils # (Auto) 0.0x10^3/uL (0.0-0.2) Sodium Level 139mmol/L (136-145) Potassium Level 4.4mmol/L (3.5-5.1) Chloride Level 106mmol/L (98-107) Carbon Dioxide Level 27mmol/L (21-32) Anion Gap 6 (6-14) Blood Urea Nitrogen 15mg/dL (8-26) Creatinine 1.3mg/dL (0.7-1.3) Estimated GFR (Cockcroft-Gault) 64.4 Glucose Level 163mg/dL (70-99) Calcium Level 9.0mg/dL (8.5-10.1) Phosphorus Level 2.9mg/dL (2.6-4.7) Magnesium Level 1.7mg/dL (1.8-2.4) Albumin 2.5g/dL (3.4-5.0) Glucose (Fingerstick) 183mg/dL (70-99) 173mg/dL (70-99) Test 12/29/16 16:48 12/29/16 20:49 Glucose (Fingerstick) 97mg/dL (70-99) 163mg/dL (70-99) Review of Systems Review of Systems feels good today, no CP MICHELET HERNANDEZ MD Dec 29, 2016 23:27
[2016-12-30 03:00] VITALS: BP 107/70
[2016-12-30 06:55] LABS: BASO % 1 % (0-3); EOS % 3 % (0-3); HEMATOCRIT 31.5 % (39.0-53.0); HEMOGLOBIN 10.5 g/dL (13.0-17.5); LYMPH # 1.1 x10^3/uL (1.0-4.8); LYMPH % 28 % (24-48); MEAN CORPUSCULAR HEMOGLOBIN 28 pg (25-35); MEAN CORPUSCULAR HGB CONC 33 g/dL (31-37); MEAN CORPUSCULAR VOLUME 84 fL (79-100); MONO % 13 % (0-9); NEUT % 56 % (31-73); PLATELET COUNT 146 x10^3/uL (140-400); RED BLOOD COUNT 3.77 x10^6/uL (4.30-5.70); RED CELL DISTRIBUTION WIDTH 14.4 % (11.5-14.5); WHITE BLOOD COUNT 3.9 x10^3/uL (4.0-11.0)
[2016-12-30 07:10] VITALS: BP 102/66
[2016-12-30 07:13] LABS: ALBUMIN 2.4 g/dL (3.4-5.0); CALCIUM 9.6 mg/dL (8.5-10.1); CREATININE 1.4 mg/dL (0.7-1.3); GFR 59.2; PHOSPHORUS 2.8 mg/dL (2.6-4.7); POTASSIUM 4.1 mmol/L (3.5-5.1)
[2016-12-30] MEDS: INSULIN ASPART 300 UNITS/3 ML INSULN.PEN SQ SCH ×4 (08:00→13:12)
[2016-12-30] MEDS: LINAGLIPTIN 5 MG TABLET PO SCH (08:34)
--- NOTE | 2016-12-30 09:06 | RAD ---
Portable chest, 12/30/2016: History: Chest tube removal Comparison is made to yesterday's study. The heart size is normal. The left chest tube has been removed. There is no evidence of recurrent pneumothorax. There is a persistent left parahilar mass. Right basilar atelectasis has shown considerable interval improvement. There is only minimal residual linear atelectasis in this region. No new pulmonary abnormality is seen. There is no evidence of pleural fluid. IMPRESSION: 1. Interval removal of the left chest tube with no evidence of recurrent pneumothorax. 2. Resolving right basilar atelectasis.
[2016-12-30] MEDS: INSULIN DETEMIR 300 UNITS/3 ML INSULN.PEN. SQ SCH (09:11)
--- NOTE | 2016-12-30 10:01 | PDOC ---
PULMONARY PROGRESS NOTES Subjective developed PTX post lung biopsy s/p left chest tube, PTX resolved Vitals Vital Signs Date Time Temp Pulse Resp B/P Pulse Ox O2 Delivery O2 Flow Rate FiO2 12/30/16 08:00 Room Air 12/30/16 07:10 97.9 85 18 102/66 95 97.9 12/29/16 20:00 2.0 General: Alert, No acute distress Lungs: Other (decrease bs) Cardiovascular: S1 Abdomen: Soft Neuro Exam: Alert Extremities: No Edema Skin: Warm Labs Laboratory Tests Test 12/28/16 10:20 12/28/16 16:58 12/28/16 21:12 12/29/16 04:41 Glucose (Fingerstick) 136mg/dL (70-99) 199mg/dL (70-99) 165mg/dL (70-99) White Blood Count 3.6x10^3/uL (4.0-11.0) Red Blood Count 4.19x10^6/uL (4.30-5.70) Hemoglobin 11.4g/dL (13.0-17.5) Hematocrit 34.5% (39.0-53.0) Mean Corpuscular Volume 82fL (79-100) Mean Corpuscular Hemoglobin 27pg (25-35) Mean Corpuscular Hemoglobin Concent 33g/dL (31-37) Red Cell Distribution Width 14.1% (11.5-14.5) Platelet Count 136x10^3/uL (140-400) Neutrophils (%) (Auto) 68% (31-73) Lymphocytes (%) (Auto) 21% (24-48) Monocytes (%) (Auto) 8% (0-9) Eosinophils (%) (Auto) 3% (0-3) Basophils (%) (Auto) 0% (0-3) Neutrophils # (Auto) 2.4x10^3uL (1.8-7.7) Lymphocytes # (Auto) 0.7x10^3/uL (1.0-4.8) Monocytes # (Auto) 0.3x10^3/uL (0.0-1.1) Eosinophils # (Auto) 0.1x10^3/uL (0.0-0.7) Basophils # (Auto) 0.0x10^3/uL (0.0-0.2) Test 12/29/16 04:45 12/29/16 07:36 12/29/16 11:23 12/29/16 16:48 Sodium Level 139mmol/L (136-145) Potassium Level 4.4mmol/L (3.5-5.1) Chloride Level 106mmol/L (98-107) Carbon Dioxide Level 27mmol/L (21-32) Anion Gap 6 (6-14) Blood Urea Nitrogen 15mg/dL (8-26) Creatinine 1.3mg/dL (0.7-1.3) Estimated GFR (Cockcroft-Gault) 64.4 Glucose Level 163mg/dL (70-99) Calcium Level 9.0mg/dL (8.5-10.1) Phosphorus Level 2.9mg/dL (2.6-4.7) Magnesium Level 1.7mg/dL (1.8-2.4) Albumin 2.5g/dL (3.4-5.0) Glucose (Fingerstick) 183mg/dL (70-99) 173mg/dL (70-99) 97mg/dL (70-99) Test 12/29/16 20:49 12/30/16 06:20 12/30/16 07:11 Glucose (Fingerstick) 163mg/dL (70-99) 129mg/dL (70-99) White Blood Count 3.9x10^3/uL (4.0-11.0) Red Blood Count 3.77x10^6/uL (4.30-5.70) Hemoglobin 10.5g/dL (13.0-17.5) Hematocrit 31.5% (39.0-53.0) Mean Corpuscular Volume 84fL (79-100) Mean Corpuscular Hemoglobin 28pg (25-35) Mean Corpuscular Hemoglobin Concent 33g/dL (31-37) Red Cell Distribution Width 14.4% (11.5-14.5) Platelet Count 146x10^3/uL (140-400) Neutrophils (%) (Auto) 56% (31-73) Lymphocytes (%) (Auto) 28% (24-48) Monocytes (%) (Auto) 13% (0-9) Eosinophils (%) (Auto) 3% (0-3) Basophils (%) (Auto) 1% (0-3) Neutrophils # (Auto) 2.2x10^3uL (1.8-7.7) Lymphocytes # (Auto) 1.1x10^3/uL (1.0-4.8) Monocytes # (Auto) 0.5x10^3/uL (0.0-1.1) Eosinophils # (Auto) 0.1x10^3/uL (0.0-0.7) Basophils # (Auto) 0.0x10^3/uL (0.0-0.2) Sodium Level 141mmol/L (136-145) Potassium Level 4.1mmol/L (3.5-5.1) Chloride Level 107mmol/L (98-107) Carbon Dioxide Level 24mmol/L (21-32) Anion Gap 10 (6-14) Blood Urea Nitrogen 18mg/dL (8-26) Creatinine 1.4mg/dL (0.7-1.3) Estimated GFR (Cockcroft-Gault) 59.2 Glucose Level 127mg/dL (70-99) Calcium Level 9.6mg/dL (8.5-10.1) Phosphorus Level 2.8mg/dL (2.6-4.7) Albumin 2.4g/dL (3.4-5.0) Laboratory Tests Test 12/29/16 11:23 12/29/16 16:48 12/29/16 20:49 12/30/16 06:20 Glucose (Fingerstick) 173mg/dL (70-99) 97mg/dL (70-99) 163mg/dL (70-99) White Blood Count 3.9x10^3/uL (4.0-11.0) Red Blood Count 3.77x10^6/uL (4.30-5.70) Hemoglobin 10.5g/dL (13.0-17.5) Hematocrit 31.5% (39.0-53.0) Mean Corpuscular Volume 84fL (79-100) Mean Corpuscular Hemoglobin 28pg (25-35) Mean Corpuscular Hemoglobin Concent 33g/dL (31-37) Red Cell Distribution Width 14.4% (11.5-14.5) Platelet Count 146x10^3/uL (140-400) Neutrophils (%) (Auto) 56% (31-73) Lymphocytes (%) (Auto) 28% (24-48) Monocytes (%) (Auto) 13% (0-9) Eosinophils (%) (Auto) 3% (0-3) Basophils (%) (Auto) 1% (0-3) Neutrophils # (Auto) 2.2x10^3uL (1.8-7.7) Lymphocytes # (Auto) 1.1x10^3/uL (1.0-4.8) Monocytes # (Auto) 0.5x10^3/uL (0.0-1.1) Eosinophils # (Auto) 0.1x10^3/uL (0.0-0.7) Basophils # (Auto) 0.0x10^3/uL (0.0-0.2) Sodium Level 141mmol/L (136-145) Potassium Level 4.1mmol/L (3.5-5.1) Chloride Level 107mmol/L (98-107) Carbon Dioxide Level 24mmol/L (21-32) Anion Gap 10 (6-14) Blood Urea Nitrogen 18mg/dL (8-26) Creatinine 1.4mg/dL (0.7-1.3) Estimated GFR (Cockcroft-Gault) 59.2 Glucose Level 127mg/dL (70-99) Calcium Level 9.6mg/dL (8.5-10.1) Phosphorus Level 2.8mg/dL (2.6-4.7) Albumin 2.4g/dL (3.4-5.0) Test 12/30/16 07:11 Glucose (Fingerstick) 129mg/dL (70-99) Medications Active Scripts Medications Dose Route/Sig Days Date Category Cyclobenzaprine Hcl 10 Mg Tablet 12/24/16 Reported Omeprazole 20 Mg Capsule.dr 12/24/16 Reported Celecoxib 200 Mg Capsule 12/24/16 Reported Hydrocodone-Apap 5-300 (Hydrocodone Bit/Acetaminophen) 1 Each Tablet 12/24/16 Reported Losartan-Hctz 50-12.5 Mg Tab (Losartan/Hydrochlorothiazide) 1 Each Tablet 12/24/16 Reported Novolog Flexpen (Insulin Aspart) 100 Unit/1 Ml Insuln.pen 15 Unit SQ 1X 12/24/16 Reported Impression . 1. A 4.4 cm left lower lobe mass in the patient, who is an ex-smoker. He smoked for 30 years. He has lost about 20 pounds in the last 2 weeks. s/p non- diagnostic bronchoscopy. followed by ct guided left mass biopsy 12/26, preliminary path c/ w sq cell cancer 2. Suspected underlying chronic obstructive pulmonary disease. 3. Hyperglycemia, present on admission, currently improved. 4. Acute renal failure present on admission, which is improved with hydration. 5. Moderate protein-calorie malnutrition. 6. PTX post biopsy, resolved with chest tube Plan . 1. Biopsy c/w squamous cell cancer 2. will need staging PET and PFT as OP/, may be a surgical candidate 3. No PTX . s/p l removal of chest tube 4. f/u with me on january 08 5. Continue with present bronchodilators. 6. home today TELLO BLANCO MD Dec 30, 2016 10:01
[2016-12-30 10:25] VITALS: BP 110/72
[2016-12-30] MEDS ORDERED: INSU100I13 SQ (12:39)
[2016-12-30 14:25] VITALS: BP 111/86
--- NOTE | 2016-12-31 00:12 | DS ---
DATE OF DISCHARGE: 12/30/2016 DISCHARGE DIAGNOSES: 1. Pneumothorax secondary to lung biopsy. Repeat chest x-ray showed improvement. 2. Lung mass, left hilum suspected squamous cell carcinoma. 3. BERTO, improved. 4. Diabetes mellitus, new diagnosis. BRIEF HOSPITAL COURSE: A 81-year-old male patient admitted to the hospital on 12/23/2016 for difficulty swallowing. He eventually was diagnosed with squamous cell carcinoma and also he was diagnosed with new onset diabetes. During the hospitalization, he was evaluated by Dr. Casey and he had a bronchoscopy done which is suggestive of squamous cell carcinoma. The patient was evaluated by Dr. Teresa, who recommend him to follow with him in the clinic. He needs a PET scan as an outpatient before he is sent for surgical evaluation. Today, he deemed clinically stable enough to go home and follow up with Dr. Teresa and Dr. Casey. DISCHARGE EXAMINATION: GENERAL: Alert, oriented x 3. HEART: S1, S2 present. LUNGS: Anterior chest clear. ABDOMEN: Soft, nontender, no organomegaly. EXTREMITIES: No edema. DISCHARGE DISPOSITION: Home. DISCHARGE CONDITION: Stable. FOLLOWUP: With Dr. Casey and Dr. Teresa in 2 weeks. MEDICATIONS: Reviewed and reconciled. New scripts provided. Please see [facility]. DIET: Diabetic diet. PROGNOSIS: Guarded. Total time spent for discharge is 32 minutes for patient education, counseling and coordination of care. MAMIE RALPH MD DR: KENNETH/joselito JOB#: [id number] / [id number] YEE
== END 2016-12-30 18:38 | disposition home or self-care (01) | DRG 166 ==
LOC: ER 12:39 → 5 NORTH 17:07
PROVIDERS: ADMIT Internal Medicine; ATTEND Internal Medicine
PROC: 0BBJ8ZX Excision of Left Lower Lung Lobe, Via Natural or Artificial Opening Endoscopic, Diagnostic (ICD-10-PCS; 2016-12-26)
PROC: 0BBL3ZX Excision of Left Lung, Percutaneous Approach, Diagnostic (ICD-10-PCS; 2016-12-26)
PROC: 0B9B8ZX Drainage of Left Lower Lobe Bronchus, Via Natural or Artificial Opening Endoscopic, Diagnostic (ICD-10-PCS; principal; 2016-12-26 12:00)
PROC: 0W9B30Z Drainage of Left Pleural Cavity with Drainage Device, Percutaneous Approach (ICD-10-PCS; 2016-12-27)
DX: C34.02 Malignant neoplasm of left main bronchus (principal); N17.0 Acute kidney failure with tubular necrosis; E11.00 Type 2 diabetes mellitus with hyperosmolarity without nonketotic hyperglycemic-hyperosmolar coma (NKHHC); E87.0 Hyperosmolality and hypernatremia; J95.811 Postprocedural pneumothorax; E44.0 Moderate protein-calorie malnutrition; R13.10 Dysphagia, unspecified; E11.22 Type 2 diabetes mellitus with diabetic chronic kidney disease; E11.65 Type 2 diabetes mellitus with hyperglycemia; E86.0 Dehydration; I12.9 Hypertensive chronic kidney disease with stage 1 through stage 4 chronic kidney disease, or unspecified chronic kidney disease; I25.10 Atherosclerotic heart disease of native coronary artery without angina pectoris; K76.89 Other specified diseases of liver; N18.3 Chronic kidney disease, stage 3 (moderate); N28.1 Cyst of kidney, acquired; N40.0 Benign prostatic hyperplasia without lower urinary tract symptoms; Y83.8 Other surgical procedures as the cause of abnormal reaction of the patient, or of later complication, without mention of misadventure at the time of the procedure; Z80.1 Family history of malignant neoplasm of trachea, bronchus and lung; Z68.21 Body mass index [BMI] 21.0-21.9, adult; Z87.891 Personal history of nicotine dependence; Z79.899 Other long term (current) drug therapy
CPT/HCPCS: 31622; 32405; 32557; 36415; 70450; 71010; 71020; 71035; 71250; 74176; 76770; 77012; 80048; 80053; 80069; 81001; 82310; 82550; 82570; 82947; 83036; 83735; 84100; 84156; 84300; 84550; 85018; 85027; 85610; 87070; 87086; 87205; 87804; 88104; 88112; 88305; 90686; 90732; 93005; 94640; 96360; A4215; C1729; C1892; J1650; J1815; J2250; J2704; J3010; J3475; J7030; J7040; Q9967; 97116; 97530; 97535; 99285-25

== ENCOUNTER → 2017-01-09 | Outpatient (CLI) | payer OTHER, MEDICAID ==
[2016-12-30 14:25] VITALS: BP 111/86
[~2017-01-09] MED LIST: CELE-20; CYCL10TA2; HYDR-2163; INSU100I13 SQ; INSU100I17 SQ; LOSA1TAB16; OMEP20CA9
--- NOTE | 2017-01-10 09:56 | RAD ---
FDG tumor localization scan, PET/CT, 01/09/2017: History: Lung mass Following IV injection of 12.9 mCi of 18 F-FDG, imaging was performed from the skull base to the proximal thighs. The noncontrast CT component was performed for attenuation correction and anatomic localization purposes rather than for primary diagnosis. The patient's blood glucose level at the time of injection was 150 MG/DL. There is a hypermetabolic mass centered in the superior segment of the left lower lobe adjacent to the left hilum. It demonstrates a maximum SUV of 12.0. The most hypermetabolic component measures approximately 4.5 cm. Peripherally there is infiltrate which demonstrates a lesser degree of FDG uptake. There is a small hypermetabolic focus in the subcarinal region just to the right of midline demonstrate a maximum issue the of 4.1. This appears to correspond in location to a 15 x 8 mm lymph node. No other abnormal mediastinal or pulmonary uptake is seen. Physiologic activity is evident in the neck. Normal GI tract and urinary tract activity is present in the abdomen and pelvis. No hypermetabolic abdominal or pelvic process is seen. The adrenal glands are unremarkable. Incidental CT findings include the presence of multiple well-defined low density hepatic lesions compatible with cysts. There is a right inguinal hernia containing predominantly fat and spermatic cord structures. No bowel herniation is evident. IMPRESSION: 1. Moderate sized hypermetabolic left lower lobe pulmonary mass compatible with a primary lung malignancy. 2. Mildly hypermetabolic subcarinal lymph node is a possibility of a small julio metastasis. 3. No PET evidence of distant metastatic disease.
== END | disposition home or self-care (01) ==
LOC: PETSC 09:30
PROVIDERS: ATTEND Internal Medicine Critical Care Medicine
DX: R91.8 Other nonspecific abnormal finding of lung field (principal); C34.90 Malignant neoplasm of unspecified part of unspecified bronchus or lung
CPT/HCPCS: 78815; A9552

== ENCOUNTER → 2017-05-22 | Outpatient (CLI) | payer OTHER, MEDICAID ==
[~2017-05-22] MED LIST changes: +CELE200C PO; -LOSA1TAB16; +LOSA1TAB16 PO; +METF500T4 PO; +OMEP20TA63 PO
--- NOTE | 2017-05-22 08:57 | RAD ---
EXAM: CT of the chest without intravenous contrast. HISTORY: Lung cancer staging. TECHNIQUE: Computed tomography of the chest was performed without intravenous contrast. COMPARISON: 12/24/2016. FINDINGS: Images of the upper abdomen reveal fluid density lesions in the liver measuring up to 3.6 x 2.5 cm in segment 2. These are stable and most likely represent cysts. Another cyst in the left kidney measures 2.1 cm. Bone windows reveal no suspicious lesions. A right-sided port catheter has its tip in the superior cavoatrial junction. There is mild diffuse enlargement of the thyroid gland on the right greater than left. There are no pathologically enlarged mediastinal or axillary lymph nodes. A small pericardial effusion has developed in the interval. There is no pleural effusion. The heart is not enlarged. There are atherosclerotic calcifications of the coronary arteries. The previously noted left infrahilar mass has almost completely resolved. A small region of scarring adjacent to the left inferior hilum now measures approximately 1.5 x 0.9 cm on image 35, as compared with probably 5.5 x 3.5 cm previously. No pulmonary metastases are seen. Bronchial wall thickening is consistent with acute or chronic bronchitis. Interstitial opacities dependently in the bases represent a combination of atelectasis along with interstitial scarring. IMPRESSION: 1. Excellent response to therapy. The left infrahilar mass has almost completely resolved. No evidence of metastatic disease. 2. Interval development of a small pericardial effusion. 3. Bronchial wall thickening and interstitial opacities in the bases. Correlate for chronic bronchitis with a component of interstitial lung disease. 3. Diffuse thyroid enlargement. Correlate with thyroid function tests. *One or more of the following individualized dose reduction techniques were utilized for this examination: 1. Automated exposure control. 2. Adjustment of the mA and/or kV according to patient size. 3. Use of iterative reconstruction technique.
--- NOTE | 2017-05-22 09:01 | RAD ---
EXAM: Right shoulder 3 views. HISTORY: Right shoulder pain, lung cancer. COMPARISON: 01/09/2017, today's CT. FINDINGS: A right-sided port catheter has its tip in the superior cavoatrial junction. Small osteophytes indicate mild acromioclavicular and glenohumeral osteoarthritis. Mild superior subluxation of the humeral head suggests early rotator cuff arthropathy. There are no clearly suspicious lesions by radiographs. No fractures are identified. IMPRESSION: 1. Correlate for correlate rotator cuff arthropathy. 2. Mild acromioclavicular and glenohumeral osteoarthritis.
--- NOTE | 2017-05-22 09:03 | RAD ---
EXAM: Right hip 2 views. HISTORY: Right hip pain, lung cancer. COMPARISON: 01/09/2017. FINDINGS: There are no clearly suspicious lesions by radiographs. There is moderately decreased femoral head/neck offset anteriorly. Lucencies underlying the anterior femoral head/neck junction are benign and consistent with femoroacetabular impingement on comparison with prior CT. The joint spaces of the right hip are maintained. No fractures are identified. IMPRESSION: 1. Findings consistent with femoroacetabular impingement. No clearly suspicious lesions by radiographs.
== END ==
LOC: CT 08:59
PROVIDERS: ATTEND Radiology Radiation Oncology
DX: C34.32 Malignant neoplasm of lower lobe, left bronchus or lung (principal); M19.011 Primary osteoarthritis, right shoulder; M25.851 Other specified joint disorders, right hip; E04.9 Nontoxic goiter, unspecified
CPT/HCPCS: 71250; 73030; 73502

== ENCOUNTER → 2017-12-03 | Outpatient (CLI) | payer OTHER | END | disposition home or self-care (01) | LOC: CT 08:47 | DX: J90 Pleural effusion, not elsewhere classified (principal); I31.3 Pericardial effusion (noninflammatory); Z92.3 Personal history of irradiation; Z92.21 Personal history of antineoplastic chemotherapy | CPT/HCPCS: 71250 ==

== ENCOUNTER → 2017-12-30 | Outpatient (CLI) | payer OTHER, MEDICAID | END | disposition home or self-care (01) | LOC: RAD 14:02 | DX: J18.9 Pneumonia, unspecified organism (principal); R91.8 Other nonspecific abnormal finding of lung field | CPT/HCPCS: 71046 ==

== ENCOUNTER → 2018-03-12 | Outpatient (CLI) | payer OTHER, MEDICAID | END | disposition home or self-care (01) | LOC: CT 10:04 | DX: C34.32 Malignant neoplasm of lower lobe, left bronchus or lung (principal); K76.89 Other specified diseases of liver | CPT/HCPCS: 71250 ==

== ENCOUNTER → 2018-04-15 | Outpatient (CLI) | payer OTHER, MEDICAID, MEDICARE | END | disposition home or self-care (01) | LOC: RAD 10:18 | DX: C34.32 Malignant neoplasm of lower lobe, left bronchus or lung (principal) | CPT/HCPCS: 71046 ==